=== PATIENT | male | born 1945 | race Two or more races ===

== ENCOUNTER 2024-12-16 09:39 | Inpatient (IN) | payer MEDICAID, SELFPAY ==
[2024-12-16] VITALS (21 sets, daily range): BP systolic 66–134; BP diastolic 46–77; PULSE 69–150; RESP 17–30; TEMP 36.1–39.5; O2SAT 70–100; BMI 19.2
--- NOTE | 2024-12-16 10:18 | EKG_ITS ---
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
--- NOTE | 2024-12-16 10:18 | XR_ITS ---
Examination: AP chest single view TECHNIQUE: AP portable upright chest single view Exam date and time: December 16, 2024 1101 hours INDICATIONS: Fever weakness today. FINDINGS: Mild prominence left ventricle Ectatic thoracic aorta No lobar pneumonia or pulmonary edema Moderate osteopenia IMPRESSION: No lobar pneumonia or pulmonary edema
--- NOTE | 2024-12-16 10:37 | EDNOTE_ITS ---
ED Weakness RME/HPI General Chief complaint: Weakness Stated complaint: WEAKNESS Time Seen by Provider: 12/16/24 10:18 Arrival date/time: 12/16/24 09:39 RME / HPI RME / HPI Narrative: DR. RABIA ARGUETA ED EVALUATION: 79 year old male, speaks only [place], presents to the Emergency Department with complaint of full body pain. Niece translated for the patient. When I asked if patient had chest pain, abdominal pain, or other localized pain; the niece asked and the patient just said the patient has full body pain, all joints . Otherwise the patient is healthy, active. However, today, family found the patient in bed, he had urinated and defecated on himself; the patient states he was too achy to get up to the restroom. He is febrile here at 102.6 F. Related Data Home Medications ?Medication ?Instructions ?Recorded ?Confirmed No Known Home Medications 12/16/24 040 01/06 Allergies Allergy/AdvReac Type Severity Reaction Status Date / Time No Known Allergies Allergy Verified 12/16/24 13:57 Review of Systems Review of Systems Systems Reviewed: All systems reviewed, normal except as documented Past Medical History Social History SMOKING STATUS: Never smoker SUBSTANCE USE: does not use ALCOHOL: Never ED Exam Narrative Physical exam: GENERAL APPEARANCE: AxOx4, generally well-appearing, no acute distress; febrile HEENT: NC, AT. MMM. EOMI, clear conjunctiva, oropharynx clear. NECK: Supple without lymphadenopathy. No stiffness or restricted ROM. HEART: Normal rate and regular rhythm, normal S1/S1, no m/r/g LUNGS: CTAB, moving air well. No crackles or wheezes are heard. ABDOMEN: Soft, nontender, nondistended with good bowel sounds heard. BACK: No midline C/T/L spine pain or deformity, No CVAT, no obvious deformity. EXTREMITIES: Without cyanosis, clubbing or edema. MUSCULOSKELETAL: FROM of all major joints, no chest tenderness NEUROLOGICAL: Grossly nonfocal. Alert and oriented, moving all 4 extremities. CN not formally tested but appear grossly intact. Observed to ambulate with normal gait. Skin: Warm and dry without any rash. Course Course Course Narrative: 1220: Sepsis alert initiated. Orders made at this time are congruent with ED Adult Sepsis Order List. Re-evaluation is to be completed. More fluids ordered. 1250: Sepsis reassessment performed consisting of lab review, vitals, physical exam including auscultation of heart, lungs, and visual evaluation of capillary refills, mucosal membranes and extremities. Quality Measures Current suspected stage: sepsis Possible source: unknown Blood cultures ordered: yes Antibiotic ordered: Yes Pertinent labs: 12/16/24 11:28 Lactic Acid 3.0 H mMol/L (0.4-2.0) Procalcitonin 5.07 H ng/ml (0.0-0.49) sepsis Orders Category Date Time Status Admit to Inpatient Status Routine Admission 12/16/24 13:06 Active Patient Condition Routine Admission 12/16/24 13:06 Ordered Bedside COVID-19 Antigen Test NOW Care 12/16/24 11:11 Active Bedside Influenza A&B Antigen Test NOW Care 12/16/24 11:11 Completed EKG (ED ONLY) *Do not use* NOW Care 12/16/24 10:18 Completed Notify provider NEEDED Care 12/16/24 13:06 Active Consult to Cardiology Routine Cons 12/16/24 13:17 Ordered Diet Regular Diet 12/16/24 Dinner Active CA echo doppler complete Stat Exams 12/16/24 13:11 Completed EKG (ED Only) Stat Exams 12/16/24 10:18 Draft US abdomen Stat Exams 12/16/24 13:14 Completed XR chest 1V Stat Exams 12/16/24 10:18 Completed Basic Metabolic Panel AM DRAW Lab 12/17/24 05:44 Completed Basic Metabolic Panel AM DRAW Lab 12/18/24 05:00 Ordered Basic Metabolic Panel AM DRAW Lab 12/19/24 05:00 Ordered Blood Culture (Lab) Stat Lab 12/16/24 10:21 Received CBC AM DRAW Lab 12/17/24 05:44 Completed CBC AM DRAW Lab 12/18/24 05:00 Ordered CBC AM DRAW Lab 12/19/24 05:00 Ordered CBC Stat Lab 12/16/24 10:21 Completed CMP [Comprehensive Metabolic Panel] Stat Lab 12/16/24 10:21 Completed Calprotectin, Stool* Stat Lab 12/16/24 16:36 Received Giardia Antigen, EIA, Stool* Stat Lab 12/16/24 16:36 Received Lactate (Lactic Acid) Stat Lab 12/16/24 11:28 Completed Lipid Panel AM DRAW Lab 12/17/24 05:44 Completed Magnesium AM DRAW Lab 12/17/24 05:44 Completed Magnesium AM DRAW Lab 12/18/24 05:00 Ordered Magnesium AM DRAW Lab 12/19/24 05:00 Ordered Norovirus, EIA (Stool)* Stat Lab 12/16/24 16:36 [address] Review Blood Smear Stat Lab 12/16/24 10:21 Completed Phosphorous AM DRAW Lab 12/17/24 05:44 Completed Procalcitonin Stat Lab 12/16/24 11:28 Completed Stool Culture Stat Lab 12/16/24 16:36 Received Stool for WBCs Stat Lab 12/16/24 16:36 Completed Thyroid Stimulating Hormone AM DRAW Lab 12/17/24 05:44 Completed Urinalysis Stat Lab 12/16/24 12:18 Completed Acetaminophen Tab [Tylenol Tab] Med 12/16/24 13:06 Active 650 mg PO Q6H PRN Enoxaparin [Lovenox] Med 12/17/24 09:00 Hold 40 mg SC QDAY Metoprolol Succinate Xl [Toprol Xl] Med 12/16/24 13:30 Discontinued 25 mg PO QDAY Oseltamivir [Tamiflu] Med 12/16/24 12:13 Discontinued 75 mg PO X1 ONE Prochlorperazine Maleate [Compazine] Med 12/16/24 13:06 Active 10 mg PO Q6H PRN Sodium Chloride 0.9% 1000 ml [Ns] 1,000 ml Med 12/16/24 12:20 Discontinued IV 999 mls/hr Sodium Chloride 0.9% 500 ml [Ns] 500 ml Med 12/16/24 10:17 Discontinued IV 999 mls/hr Sodium Chloride 0.9% 500 ml [Ns] 500 ml Med 12/16/24 12:20 Discontinued IV 999 mls/hr bisacodyL [Dulcolax Supp] Med 12/16/24 13:06 Active 10 mg NV QDAY PRN cefTRIAXone/D5w 1gm IV premix [Rocephin/D5w 1gm IV Med 12/16/24 12:14 Discontinued premix] 1 gm in 50 ml IV X1 metroNIDAZOLE/NS 500 MG IVPB [Flagyl 500 mg IV] Med 12/16/24 13:20 Discontinued 500 mg in 100 ml IV X1 Code Status Routine Oth 12/16/24 13:06 Ordered Vital Signs Vital signs: Vital Signs Temperature 100.6 F H 12/16/24 09:53 Pulse Rate 69 12/16/24 09:53 Respiratory Rate 18 12/16/24 09:53 Blood Pressure 120/70 12/16/24 09:53 Pulse Oximetry (%) 98 12/16/24 09:53 Procedures -ED EKG Interpretation #1: Date of EK12/16/24 Time of EK:45 Rate: 94 Interpretation: Interpreted by me Additional EKG comment: atrial fibrillation, rate 94, no acute ST-T wave changes Weakness MDM Narrative MDM Narrative:: Renetta Candelario am scribing for and in the presence of Dr. Walden. Patient data External records reviewed:: None (no previous visits) Clinical information provided by:: patient Social determinants that could affect healthcare access:: none Patient has the following chronic illnesses:: No known history. How is presenting disease/condition affected by chronic disease/condition?: no chronic disease Evaluation data The following diagnostics were reviewed and interpreted by me:: lab results, radiology exam(s) and EKG tracing(s) Lab and/or radiology exams considered but not ordered:: none Interpretation Summary: Procedure(s): XR chest 1V Accession Number(s): [id number] cc: Brendan Walden MD; Jesu Mitchell MD; NO PRIMARY/FAMILY,PHYSICIAN~ Examination: AP chest single view TECHNIQUE: AP portable upright chest single view Exam date and time: December 16, 2024 1101 hours INDICATIONS: Fever weakness today. FINDINGS: Mild prominence left ventricle Ectatic thoracic aorta No lobar pneumonia or pulmonary edema Moderate osteopenia IMPRESSION: No lobar pneumonia or pulmonary edema Dictated By: Jesu Mitchell MD Medications / Prescriptions Medications or Prescriptions considered but not ordered:: none Medication administrations:: Medication Administration History Acetaminophen (Acetaminophen 325 Mg Tablet) 650 mg PO Q6H PRN PRN Reason: Fever >100.3 Stop: 01/15/25 13:05 Last Admin: 12/16/24 14:18 Dose: 650 mg Documented By: RYAN Bisacodyl (Bisacodyl 10 Mg Supp) 10 mg NV QDAY PRN; Protocol PRN Reason: Constipation Stop: 01/15/25 13:05 Enoxaparin Sodium (Enoxaparin Sod Inj 40 Mg/0.4 Ml Syringe) 40 mg SC QDAY MIHAELA Stop: 12/31/24 08:59 Piperacillin/Tazobactam/Dextrose (Zosyn) 3.375 gm in 50 mls @ 12.5 mls/hr IV Q8HR [facility] Stop: 12/23/24 21:59 Last Admin: 12/17/24 05:17 Dose: 12.5 mls/hr Documented By: Infusion: 12/17/24 01:07 Dose: Infused Documented By: Admin: 12/16/24 21:07 Dose: 12.5 mls/hr Documented By: Influenza Virus Vaccine Quadrival (Influenza Virus Quadrivalent 0.5 Ml Syringe) 0.5 ml IMi .ONCE ONE Stop: 12/17/24 10:01 Prochlorperazine Maleate (Prochlorperazine Maleate 5 Mg Tablet) 10 mg PO Q6H PRN PRN Reason: NAUSEA OR VOMITING Stop: 01/15/25 13:05 Discontinued Medications Sodium Chloride (Ns) 500 mls @ 999 mls/hr IV .Q31M ONE Stop: 12/16/24 10:47 Last Infusion: 12/16/24 11:58 Dose: Infused Documented By: Admin: 12/16/24 11:30 Dose: 999 mls/hr Documented By: VG Ceftriaxone Sodium/Dextrose (Rocephin/D5w 1gm Iv Premix) 1 gm in 50 mls @ 100 mls/hr IV X1 ONE Stop: 12/16/24 12:43 Last Infusion: 12/16/24 15:18 Dose: Infused Documented By: Admin: 12/16/24 14:18 Dose: 100 mls/hr Documented By: VG Sodium Chloride (Ns) 500 mls @ 999 mls/hr IV .Q31M ONE Stop: 12/16/24 12:50 Last Infusion: 12/16/24 13:51 Dose: Infused Documented By: Admin: 12/16/24 12:45 Dose: 999 mls/hr Documented By: VG Sodium Chloride (Ns) 1,000 mls @ 999 mls/hr IV .Q1H1M ONE Stop: 12/16/24 13:20 Last Infusion: 12/16/24 13:51 Dose: Infused Documented By: Admin: 12/16/24 12:45 Dose: 999 mls/hr Documented By: VG Metronidazole (Flagyl 500 Mg Iv) 500 mg in 100 mls @ 100 mls/hr IV X1 ONE Stop: 12/16/24 14:19 Last Infusion: 12/16/24 16:49 Dose: Infused Documented By: Admin: 12/16/24 15:25 Dose: 100 mls/hr Documented By: VG Sodium Chloride (Ns) 500 mls @ 999 mls/hr IV .Q31M ONE Stop: 12/16/24 16:44 Last Infusion: 12/16/24 16:45 Dose: Infused Documented By: Admin: 12/16/24 16:15 Dose: 999 mls/hr Documented By: VG Lactated Ringer's (Lactated Ringers) 500 mls @ 999 mls/hr IV .Q31M ONE Stop: 12/16/24 17:25 Last Admin: 12/16/24 17:10 Dose: Not Given Documented By: VG Non-Admin Reason: Duplicate Medication on eMAR Piperacillin/Tazobactam/Dextrose (Zosyn) 3.375 gm in 50 mls @ 100 mls/hr IV X1 ONE Stop: 12/16/24 17:24 Last Infusion: 12/16/24 17:44 Dose: Infused Documented By: Admin: 12/16/24 17:03 Dose: 100 mls/hr Documented By: VG Sodium Chloride (Ns) 1,000 mls @ 999 mls/hr IV .Q1H1M ONE Stop: 12/16/24 18:06 Last Admin: 12/16/24 17:15 Dose: Not Given Documented By: VG Non-Admin Reason: Discontinued Lactated Ringer's (Lactated Ringers) 1,000 mls @ 999 mls/hr IV .Q1H1M ONE Stop: 12/16/24 18:09 Last Infusion: 12/16/24 17:32 Dose: Infused Documented By: Admin: 12/16/24 16:55 Dose: 999 mls/hr Documented By: VG Metoprolol Succinate (Metoprolol Succinate Xl 25 Mg Tabcr) 25 mg PO QDAY MIHAELA Stop: 01/15/25 13:29 Last Admin: 12/16/24 14:19 Dose: 25 mg Documented By: VG Oseltamivir Phosphate (Oseltamivir 75 Mg Capsule) 75 mg PO X1 ONE Stop: 12/16/24 12:14 Last Admin: 12/16/24 15:26 Dose: 75 mg Documented By: RYAN see above Consultations Consultation(s) initiated? (list below): Yes Consultation #1 (Physician, Specialty, Details): Discussed test HPI, PMHx, lab, radiology results and/or management with hospitalist. Will admit for further evaluation and management. Accepts patient for admission. Time: 12:19 Diagnosis Weakness Differential Diagnosis: rhabdomyolysis, sepsis, dehydration and other (arthritis) Most likely diagnosis given after review of the tests above:: Sepsis New onset atrial fibrillation CHRISTOPHER Admission Indicated Admission indicated?: indicated Admission Request Was there a request for admission?: Yes Admission Attestation Admission request attestation: Discussed case with [] from Hospitalist service regarding admission. Discussed patients ED course, exam findings, labs, and radiology results. The Hospitalist [agrees,declines] to accept the patient for admission. Disposition Plan Disposition Plan: Admit Critical Care Time Critical Care Time Critical Care Time: Yes Total Critical Care Time (min.): 35 Attestation: The high probability of sudden, clinically significant deterioration in the patient?s condition required the highest level of my preparedness to intervene urgently. The services I provided to this patient were to treat and/or prevent clinically significant deterioration. Services included the following: chart data review, reviewing nursing notes and/or old charts, documentation time, data communications software consultant collaboration regarding findings and treatment options, medication orders and management, direct patient care, vital sign assessments and ordering, interpreting and reviewing diagnostic studies and lab tests. Aggregate critical care time includes only time during which I was engaged in work directly related to the patient?s care, as described above, whether at bedside or elsewhere in the Emergency Department. It did not include time spent performing other reported procedures or the services of residents, students, nurses or physician assistants. Discharge Plan Plan Patient Disposition: Admit Acute Care w/in Hospital Problem List Clinical Impression: Sepsis, New onset atrial fibrillation, CHRISTOPHER (acute kidney injury)
[2024-12-16 10:38] LABS: Basophils % (Auto) 0 % (0-2.5); Eosinophils % (Auto) 0 % (0-10); Hematocrit 32.8 % (41.0-53.0); Hemoglobin 10.8 g/dL (13.5-16.0); Immature Granulocytes % (Auto) 1 % (0-0); Immature Granulocytes Auto 0.03 Thou/mm3 (0.00-0.00); Lymphocytes # (Auto) 0.8 Thou/mm3 (1.0-4.8); Lymphocytes % (Auto) 16 % (10-50); Mean Corpuscular HGB Conc 32.9 g/dl (31.0-37.0); Mean Corpuscular Hemoglobin 20.9 pg (25.0-35.0); Mean Corpuscular Volume 63 fL (80-100); Monocytes % (Auto) 21 % (0-12); Neutrophils % (Auto) 62 % (37-80); Nucleated Red Blood Cell % 0 /100 WBC (0); Platelet Count 125 Thou/mm3 (140-440); RDW Standard Deviation 31.6 fL (35.1-43.9); Red Blood Count 5.17 Miln/mm3 (4.50-5.90); White Blood Count 4.8 Thou/mm3 (3.8-10.6)
[2024-12-16 10:55] LABS: Alanine Aminotransferase 21 U/L (10-49); Albumin, Serum 4.1 gm/dL (3.4-4.8); Albumin/Globulin Ratio 1.4 (1.2-2.2); Alkaline Phosphatase 65 U/L (46-116); Anion Gap 9 (7-16); Aspartate Amino Transferase 73 U/L (0-34); BUN/Creatinine Ratio 16 Ratio (12-20); Bilirubin,Total 1.1 mg/dL (0.3-1.2); Blood Urea Nitrogen 25 mg/dL (9-23); Calcium 8.9 mg/dL (8.3-10.6); Calcium (Corrected) 8.9 mg/dL (8.5-10.1); Carbon Dioxide 20.7 mMol/L (20.0-31.0); Chloride 100 mMol/L (98-107); Creatinine (Component) 1.6 mg/dL (0.6-1.3); Glucose 99 mg/dL (74-106); Osmolality,Calculated 265 (275-295); Potassium 3.7 mMol/L (3.4-5.1); Sodium 130 mMol/L (136-145); Total Protein 7.1 gm/dL (5.7-8.2); eGFR 43 See Note
[2024-12-16] MEDS: SODIUM CHLORIDE 0.9% 500 ML 500 ML 999 ML IV ×3 (11:30→16:15)
[2024-12-16 12:00] LABS: Procalcitonin 5.07 ng/ml (0.0-0.49)
[2024-12-16 12:43] LABS: Collection Type, Urine Catheter
[2024-12-16] MEDS: SODIUM CHLORIDE 0.9% 1000 ML 1,000 ML 999 ML IV (12:45)
[2024-12-16 12:55] LABS: Bilirubin,Urine Negative (Negative); Blood,Urine 3+ (Negative); Glucose, Urine Negative (Negative); Ketones,Urine Negative (Negative); Leukocyte Esterase,Urine Negative (Negative); Nitrite,Urine Negative (Negative); PH,Urine 5.5 (5.0-7.0); Protein,Urine 1+ (Neg - Trace); RBC,Urine 1 /hpf (0-3); Specific Gravity,Urine 1.018 (1.001-1.035); Squamous Epithelial Cell,Urine 1 /hpf (0-5); Urobilinogen,Urine Negative mg/dL (0.0-1.0); WBC,Urine 1 /hpf (0-5)
[2024-12-16 12:56] LABS: Clarity,Urine Hazy (Clear/Hazy); Color,Urine Lt Yellow (Lt Yel-Yel)
--- NOTE | 2024-12-16 13:00 | PC.NURSE ---
admitting team at bedside.
--- NOTE | 2024-12-16 13:02 | PC.CC ---
Patient is a 79 year-old male who presents to the hospital for ASWEdyta made znqz-wc-wqum contact with patient. ASW introduced self, role, and reason for visit. Patient appeared alert but not oriented to self, location, and situation. At bedside was patient's nieces, Joy Zhang who is listed on patient's demographics. ASW completed initial assessment with patient's niece. Patient's niece reports patient resides with his sister, Harrison Herrera . Patient's next of kin is his sister Harrison. At home niece reports patient is ambulatory and completes his own ADLs. The patient does not use any DME. Patient receives primary care at [facility] and uses [facility] for prescription medication. Upon discharge the family plans to take the patient back home. manager environmental services to follow up with any discharge needs.
--- NOTE | 2024-12-16 13:04 | PC.CC ---
Patient is a 79 year-old male who presents to the hospital for Generalized Weakness. Edyta MONDRAGON made qwqg-fg-erel contact with patient. ASW introduced self, role, and reason for visit. Patient appeared alert but not oriented to self, location, and situation. At bedside was patient's nieces, Joy Zhang who is listed on patient's demographics. ASW completed initial assessment with patient's niece. Patient's niece reports patient resides with his sister, Harrison Herrera . Patient's next of kin is his sister Harrison. At home niece reports patient is ambulatory and completes his own ADLs. The patient does not use any DME. Patient receives primary care at [facility] and uses [email or web address] for prescription medication. Upon discharge the family plans to take the patient back home. client services manager to follow up with any discharge needs.
--- NOTE | 2024-12-16 13:11 | ECHO_ITS ---
Transthoracic Echo Report Ht (in): 66 Wt (lb): 155 Exam Location: Portable Status: Emergency Zig Zag Spring Machine Operator: PRASANNA Abraham^^^^ Indications: Procedure Performed: BP: 120 / 73 HR: 111 Rhythm: Atrial fibrillation Technical Quality: Fair MEASUREMENTS (Male / Female) Normal Values 2D ECHO LV Diastolic Diameter PLAX 4.5 cm 4.2 - 5.9 / 3.9 - 5.3 cm LV Systolic Diameter PLAX 3.4 cm IVS Diastolic Thickness 1.0 cm 0.6 - 1.0 / 0.6 - 0.9 cm LVPW Diastolic Thickness 0.9 cm 0.6 - 1.0 / 0.6 - 0.9 cm LV Relative Wall Thickness 0.4 LVOT Diameter 1.9 cm Aortic Root Diameter 4.1 cm LA Systolic Diameter LX 4.4 cm 3.0 - 4.0 / 2.7 - 3.8 cm LA Volume Index 52.3 cm?/m? 16 - 28 cm?/m? Ascending Aorta Diameter 3.4 cm DOPPLER AV Peak Velocity 140.0 cm/s AV Peak Gradient 7.8 mmHg AV Mean Gradient 4.0 mmHg AV Velocity Time Integral 21.3 cm AI Peak Velocity 207.0 cm/s AI Peak Gradient 17.1 mmHg AI Pressure Half Time 617.0 ms LVOT Peak Velocity 82.8 cm/s LVOT Peak Gradient 2.7 mmHg LVOT Velocity Time Integral 19.7 cm LVOT Cardiac Index 3406.9 cm?/min?m? AV Area Cont Eq vti 2.6 cm? AV Area Cont Eq pk 1.7 cm? MV Peak Velocity 114.0 cm/s MV Peak Gradient 5.2 mmHg MV Mean Velocity 73.5 cm/s MV Mean Gradient 3.0 mmHg MV Area PHT 5.0 cm? MR Peak Velocity 421.0 cm/s MR Peak Gradient 70.9 mmHg Mitral E Point Velocity 92.9 cm/s LV E' Lateral Velocity 18.9 cm/s Mitral E to LV E' Lateral Ratio 4.9 LV E' Septal Velocity 14.0 cm/s Mitral E to LV E' Septal Ratio 6.6 TR Peak Velocity 319.0 cm/s TR Peak Gradient 40.7 mmHg PV Peak Velocity 105.0 cm/s PV Peak Gradient 4.4 mmHg RVOT Peak Velocity 72.4 cm/s FINDINGS Left Ventricle Normal left ventricular size, wall thickness, systolic function with no obvious regional wall motion abnormalities. There is grade III diastolic dysfunction of the left ventricle (restrictive filling pattern). The left ventricular ejection fraction is normal, estimated at 55-60%. Right Ventricle The right ventricle is normal in size and systolic function. The estimated right ventricular systolic pressure, 41 mmHg. Left Atrium Moderately increased left atrial volume 52.3 mL/m?. Right Atrium The right atrium is normal by two-dimensional imaging, color flow and Doppler imaging with no structural abnormalities, no thrombus formation present. Atrial Septum The interatrial septum appears normal with no evidence of a shunt. Aorta The aorta is normal by two-dimensional, color flow and Doppler interrogation. Mitral Valve Havt-xo-znnhbott mitral regurgitation. Mild mitral annular calcification. Aortic Valve Aortic valve sclerosis. Trace to mild aortic valve regurgitation. Tricuspid Valve There is mild to moderate tricuspid valve regurgitation. Pulmonic Valve Trivial pulmonic valve regurgitation. Vessels The pulmonary artery appears normal. The inferior vena cava pulmonary and hepatic veins appear normal. Pericardium The pericardium is normal by two-dimensional imaging. There is no significant pericardial effusion. CONCLUSIONS Indication: Atrial fibrillation Normal LV size and function. Estimated EF of 55 to 60%. Diastolic dysfunction present but cannot be graded secondary to A-fib Normal RV size and function. RVSP of 42 mmHg. Moderate TR Moderate LA dilatation. Mild RA dilatation. Mild to moderate MR and mild MAC. Mild aortic valve sclerosis without stenosis. Mild-Mod TR. [place]aga (Electronically Signed) Final Date: 16 December 2024 21:46
--- NOTE | 2024-12-16 13:14 | XR_ITS ---
Examination: Abdomen sonogram, complete Date and time of exam: December 16, 2024 1329 hours INDICATIONS: Weakness abdominal pain today, atrial fibrillation. Technique: Multiple real-time grayscale transabdominal sonographic images of the abdomen have been obtained. Findings: Normal gallbladder Normal common bile duct Pancreas obscured by bowel gas Proximal aorta visualized not enlarged mediastinal and distally aorta obscured by bowel gas Liver 14 cm no focal liver lesions Normal hepatopedal portal venous flow Patent IVC Right kidney 10.1 cm cortex 1.2 cm 11 mm lower pole renal cyst Left ovary 8.8 cm cortex 1.1 cm Mild right mild left renal parenchymal scar formation Spleen 8.7 cm IMPRESSION: Normal gallbladder Normal common bile duct No focal liver lesions Mild bilateral renal parenchymal scar formation
--- NOTE | 2024-12-16 13:21 | ESHP_ITS ---
<Statement entered by Shane Mcdonald MD - 12/17/24 07:18> Senior Resident Attestation: I supervised/discussed management plan with internet site designer physician Dr. Diaz, and was involved in the care of this patient. I personally saw and examined the patient and discussed the assessment and plan with the entire medicine team, including my attending. I agree with the assessment and plan as documented. Patient's care was discussed with attending physician, Dr. Merino. Shane Mcdonald MD PGY-2. Documentation for date of: 12/16/24 HPI History of Present Illness Chief complaint: Generalized weakness History of present illness: A 79-year-old ilocano speaking patient with past medical history of CVA, but not on any medication was brought to the hospital by his niece with chief complaints of generalized weakness since 1 day. Patient at baseline is able to do his routine daily activities and ambulate well. On the day of admission, at 2 AM patient was found to have involuntary defecation and urination in his bed which is unusual for him and patient also complained of severe body pains all over. During night, patient reported that when he came back from the bathroom he twisted on his leg and had a fall but denied any injury or trauma to the head/spine. Denies palpitations, chest pain, shortness of breath, fever. Patient found to have further episodes of diarrhea for which he received Imodium at home. As patient is not at his baseline, he is brought to the hospital ED course: -Initial vitals at the time of admission are blood pressure 120/70 mmHg, pulse rate 69 bpm, respiratory rate 18/min, temperature 100.6 ?F, SpO2 98% with room air -Labs showed WBC 4.8, Hb 10.8, platelets 125, sodium 130, BUN 25, creatinine 1.6, osmolality 265, AST 73, ALT 21, procalcitonin 5.07, lactate 3. Urine analysis showed 1+ proteinuria, 3+ blood with no bacteria -Chest x-ray showed mild cardiomegaly with no patchy infiltrates -EKG showed atrial fibrillation with normal ventricular rate Past medical history: CVA, not on any medications Past surgical history: Not significant Social history: Quit alcohol 10 years back, currently denies smoking, alcohol, other illicit drug abuse. Lives in home with his daughter and son-in-law, ambulatory and able to do his own activities at baseline Allergies: NKDA Medication history: Magnesium supplementation Review of Systems Review of Systems Systems Reviewed: All systems reviewed, normal except as documented Past Medical History Social History SMOKING STATUS: Never smoker SUBSTANCE USE: does not use ALCOHOL: Former Exam Vital Signs Temp Pulse Resp BP Pulse Ox O2 Del Method 103.1 F H 103 H 20 131/72 H 98 Room Air 12/16/24 12:44 12/16/24 12:44 12/16/24 12:44 12/16/24 12:44 12/16/24 12:44 12/16/24 12:44 Narrative Exam General: Awake. Fragile, looks dehydrated HEENT: Normocephalic, atraumatic, mucous membranes moist. Heart: Irregular rate and rhythm, pansystolic murmur heard at tricuspid area Lungs: Clear to auscultation with no wheezing or crackles. Abdomen: Soft, nondistended, nontender, positive bowel sounds. ?No guarding or rebound tenderness. Neurologic: Alert and oriented x3, no gross neurological deficit, and patient able to move all 4 extremities. Extremities: No edema. Skin: No rash or ecchymoses. Results: Labs 12/17/24 05:44 12/17/24 05:44 Labs: Short CBC 12/16/24 Range/Units 10:21 WBC 4.8 (3.8-10.6) Thou/mm3 Hgb 10.8 L (13.5-16.0) g/dL Hct 32.8 L (41.0-53.0) % Plt Count 125 L (140-440) Thou/mm3 BMP 12/16/24 10:21 Sodium 130 L Potassium 3.7 Chloride 100 Carbon Dioxide 20.7 BUN 25 H Creatinine 1.6 H Glucose 99 Calcium 8.9 Liver Function 12/16/24 Range/Units 10:21 Total Bilirubin 1.1 (0.3-1.2) mg/dL AST 73 H (0-34) U/L ALT 21 (10-49) U/L Alkaline Phosphatase 65 (46-116) U/L Albumin 4.1 (3.4-4.8) gm/dL Urine 12/16/24 Range/Units 12:18 Urine Color Lt Yellow (Lt Yel-Yel) Urine Clarity Hazy (Clear/Hazy) Urine pH 5.5 (5.0-7.0) Ur Specific [place] 1.018 (1.001-1.035) Urine Protein 1+ A (Neg - Trace) Urine Glucose (UA) Negative (Negative) Quality Measures Quality Measures sepsis Current suspected stage: sepsis Possible source: unknown Blood cultures ordered: yes Antibiotic ordered: Yes Advance care planning discussed with:: patient Medications Home Medications and Allergies Home Medications ?Medication ?Instructions ?Recorded ?Confirmed ?Type No Known Home Medications 12/16/2401/06 History Allergies Allergy/AdvReac Type Severity Reaction Status Date / Time No Known Allergies Allergy Verified 12/16/24 13:57 Visit Medications Acetaminophen (Acetaminophen 325 Mg Tablet) 650 mg PO Q6H PRN PRN Reason: Fever >101.5 Stop: 01/15/25 13:05 Bisacodyl (Bisacodyl 10 Mg Supp) 10 mg [place] QDAY PRN; Protocol PRN Reason: Constipation Stop: 01/15/25 13:05 Enoxaparin Sodium (Enoxaparin Sod Inj 40 Mg/0.4 Ml Syringe) 40 mg SC QDAY [facility] Stop: 12/31/24 08:59 Ceftriaxone Sodium/Dextrose (Rocephin/D5w 1gm Iv Premix) 50 mls @ 100 mls/hr IV X1 ONE Stop: 12/16/24 12:43 Metronidazole (Flagyl 500 Mg Iv) 100 mls @ 100 mls/hr IV X1 ONE Stop: 12/16/24 14:19 Metoprolol Succinate (Metoprolol Succinate Xl 25 Mg Tabcr) 25 mg PO QDAY [facility] Stop: 01/15/25 13:29 Oseltamivir Phosphate (Oseltamivir 75 Mg Capsule) 75 mg PO X1 ONE Stop: 12/16/24 12:14 Prochlorperazine Maleate (Prochlorperazine Maleate 5 Mg Tablet) 10 mg PO Q6H PRN PRN Reason: NAUSEA OR VOMITING Stop: 01/15/25 13:05 Discontinued Medications Sodium Chloride (Ns) 500 mls @ 999 mls/hr IV .Q31M ONE Stop: 12/16/24 10:47 Last Infusion: 12/16/24 11:58 Dose: Infused Sodium Chloride (Ns) 500 mls @ 999 mls/hr IV .Q31M ONE Stop: 12/16/24 12:50 Last Admin: 12/16/24 12:45 Dose: 999 mls/hr Sodium Chloride (Ns) 1,000 mls @ 999 mls/hr IV .Q1H1M ONE Stop: 12/16/24 13:20 Last Admin: 12/16/24 12:45 Dose: 999 mls/hr Assessment & Plan Plan A 79-year-old ilocano speaking patient with past medical history of CVA, but not on any medication was brought to the hospital by his niece with chief complaints of generalized weakness since 1 day and admitted for suspicion of sepsis #Fever #Sepsis vs Viral illness vs Gastroenteritis - Brought to the hospital with the chief complaints of involuntary defecation and urination which is unusual for the patient - Also c/o severe body pains, but not able to localise the location - In the ED, patient vitals are stable except for temp of 100.6F, other vitals are stable - Labs are significant for hb 10.8, PLT 125, Sodium 130, Lactate 3, procal 5.07 - EKG showed afib with CVR. Chest x Ray did not show any filtrates - US Abdomen did not show any significant pathology Plan - Received 2L bolus in the ED. 2 boluses of 500ml are given later - Zosyn started ( 12/16 - - Blood cultures and stool studies sent #Afib - New onset vs paroxysmal vs persistent -Patient was found to have afib on routine EKG -Not sure if patient had previous afib as patient does not have previous history and not following any PCP Plan - Patient initially found to have RVR for which metoprolol 25mg is given - As patient blood pressure is borderline and heart rate is controlled, later metoprolol is held - Will re evaluate later and resume metoprolol based on his blood pressures and Heart rate - Patient had microcytic hypochromic anemia, occult blood is ordered - If occult blood comes back negative, will consider eliquis after discussing it with the patient #CHRISTOPHER vs CKD IIIa -Creatinine at the time of admission is 1.6 -Baseline creatinine is not available -Urinalysis showed 1+ proteinuria Plan -Patient received 2L of fluid in the ED -will monitor RFT -Avoid nephrotoxic medications and renally dose the medications #Lactic acidosis, resolved Likely due to diarrhea -Lactate at the time of admission is 3 and later improved to 1.8 after fluid bolus #Microcytic Hypochromic anemia - Hb at the time of admission is 10.8, MCV, MCH and MCHC is low -Stool for occult blood and iron panel is ordered - Will f/up with the results #Hyponatremia - Sodium at the time of admission is 130 - Received 2l bolus - will monitor electrolytes Hospital Maintenance: Dispo: tele DVT ppx: SCD GI ppx: protonix Diet: Regular IV lines:peripheral Code status:Full Patient plan of care was discussed with the attending physician, Dr. Merino and senior resident Dr. Harry Diaz, PGY1 Attending Provider Attestation/Addendum Face to face evaluation was performed by me. I have personally seen and examined the patient. I discussed the assessment and plan with the entire medicine team. I reviewed available medical records, imaging studies, laboratory results. I agree with the above subjective data, objective findings, assessment and plan except as corrected by me or noted below Fever, present on admission Possible severe sepsis, suspect gastrointestinal source. Present on admission. Without septic shock atrial fibrillation with rapid ventricular response Diarrhea, present admission -IV fluids, continue with empiric antibiotics. Follow culture results. Some IV fluids. Control heart rate with beta-xavier and/or calcium channel xavier if blood pressure/vitals. Cardiology consultation. Echocardiogram, keep magnesium above 2 potassium above 4, check TSH. - Monitor clinical course closely. More than > 30 minutes spent on the encounter
[2024-12-16] MEDS: cefTRIAXone/D5w 1gm IV premix 1 GM/50 ML BAG IV (14:18)
[2024-12-16] MEDS: ACETAMINOPHEN 325 MG TABLET 650 MG PO (14:18)
[2024-12-16] MEDS: METOPROLOL SUCCINATE XL 25 MG TABCR PO (14:19)
[2024-12-16 14:32] LABS: Reflex Lactate? Y
--- NOTE | 2024-12-16 15:08 | ESCONSULT_ITS ---
HPI Data of Consult Requesting Physician: Bimal Merino MD Admitting Provider: Bimal Merino MD Attending Provider: Bimal Merino MD Primary Care Provider: Physician No Primary/Family Consult Narrative History of present illness: Patient is a 79-year-old Ilocano-speaking male with no known past medical history who presented to the ED on 12/16/2024 with generalized weakness. Niece is present at the bedside who helps to provide translation. Patient at present reports full body aches, no focal pain or weakness. The patient was apparently found weak in bed at home where he lives with his sister and sister's (niece's parents). Patient was found to have urine and diarrhea in the bed and per niece this is unusual for him. Typically he is very independent with all ADLs and all IADLs. He walks normally without use of any assistance and is active in the house. Patient was noted to have diarrhea starting yesterday and took 1 immodium. No other unusual symptoms were noted by the patient or family prior to this. Otherwise denies any chest pain, palpitations, cough, shortness of breath, phelgm, congestion, abdominal pain, flank pain, hematuria, or hematochezia. He moved from the [facility] about 10 years ago. Patient denies any recent travel, denies sick contacts. ED Course: -Initial vitals were BP 120/70, HR 69, RR 18, Temp 100.6, O2 98% on room air -Labs significant for microcytic anemia with Hgb 10.8, MCV 63, thrombocytopenia 125k, hyponatremia 130, BUN 25, creatinine 1.6, GFR 43, lactic acid 3.0, AST 73, procalcitonin 5.07 -UA showed 1+ protein, 3+ blood, but negative for nitrites or leukocyte esterase -CXR showed dilation of the aorta and mildly enlarged left ventricle but otherwise no consolidations -EKG showed afib at a rate of 94, poor quality EKG due to artifact -In the ED, patient was given 2L NS IV fluids -Patient was admitted for sepsis and on-call Cardiology was consulted for new onset afib with RvR Review of Systems Review of systems otherwise negative except what is mentioned above. cc:: cc: Bimal Merino MD Past Medical History Past Medical History Comments PMH COMMENT: Past Medical History: Possible prior history of stroke , though unconfirmed. Niece states there was a few months period in the [facility] when patient was bedridden and aphasic requiring nursing care, but that he recovered completely from this. Family History: Mother with stroke, age 80s, father with heart attack Surgical History: No prior surgeries Social History: Denies history of smoking, denies current alcohol use but used to drink heavily more than 10 years ago in the [facility], bottles of vodka per day according to niece, since moving to the he has not had any alcohol, denies recreational drug use. Patient is originally from the [facility], moved in 2014 to the , speaks [employer]. Lives with sister and sister's . Independent with all ADLs. 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 Never . No children. No pets or animals in the home. Current Medications: Magnesium supplement 240 mg qday Allergies: No known drug allergies Exam Vital Signs Temp Pulse Resp BP Pulse Ox O2 Del Method 103.1 F H 118 H 20 120/73 98 Room Air 12/16/24 14:18 12/16/24 14:19 12/16/24 12:44 12/16/24 14:19 12/16/24 12:44 12/16/24 12:44 Narrative Exam Physical Exam General: Awake and in no acute distress. Elderly thin male who speaks I[place], interactive with the family. HEENT: Normocephalic, atraumatic, mucous membranes dry. Heart: Irregularly irregular rate and rhythm, 2/6 holosystolic murmur at the left parasternal space Lungs: Clear to auscultation with no wheezing or crackles. Abdomen: Soft, nondistended, nontender, positive bowel sounds. ?No guarding or rebound tenderness. Neurologic: Alert and oriented x3, no gross neurological deficit, and patient able to move all 4 extremities. Extremities: No edema. Skin: No rash or ecchymoses. Results Labs 12/16/24 10:21 12/16/24 10:21 Labs: Short CBC 12/16/24 Range/Units 10:21 WBC 4.8 (3.8-10.6) Thou/mm3 Hgb 10.8 L (13.5-16.0) g/dL Hct 32.8 L (41.0-53.0) % Plt Count 125 L (140-440) Thou/mm3 BMP 12/16/24 10:21 Sodium 130 L Potassium 3.7 Chloride 100 Carbon Dioxide 20.7 BUN 25 H Creatinine 1.6 H Glucose 99 Calcium 8.9 Liver Function 12/16/24 Range/Units 10:21 Total Bilirubin 1.1 (0.3-1.2) mg/dL AST 73 H (0-34) U/L ALT 21 (10-49) U/L Alkaline Phosphatase 65 (46-116) U/L Albumin 4.1 (3.4-4.8) gm/dL Urine 12/16/24 Range/Units 12:18 Urine Color Lt Yellow (Lt Yel-Yel) Urine Clarity Hazy (Clear/Hazy) Urine pH 5.5 (5.0-7.0) Ur Specific [place] 1.018 (1.001-1.035) Urine Protein 1+ A (Neg - Trace) Urine Glucose (UA) Negative (Negative) Quality Measures Quality Measures sepsis Current suspected stage: severe sepsis Possible source: unknown Blood cultures ordered: yes Antibiotic ordered: Yes Advance care planning discussed with:: patient and other (niece) Medications Home Medications and Allergies Home Medications ?Medication ?Instructions ?Recorded ?Confirmed ?Type No Known Home Medications 12/16/2401/06 History Allergies Allergy/AdvReac Type Severity Reaction Status Date / Time No Known Allergies Allergy Verified 12/16/24 13:57 Visit Medications Acetaminophen (Acetaminophen 325 Mg Tablet) 650 mg PO Q6H PRN PRN Reason: Fever >100.3 Stop: 01/15/25 13:05 Last Admin: 12/16/24 14:18 Dose: 650 mg Bisacodyl (Bisacodyl 10 Mg Supp) 10 mg [place] QDAY PRN; Protocol PRN Reason: Constipation Stop: 01/15/25 13:05 Enoxaparin Sodium (Enoxaparin Sod Inj 40 Mg/0.4 Ml Syringe) 40 mg SC QDAY [facility] Stop: 12/31/24 08:59 Metoprolol Succinate (Metoprolol Succinate Xl 25 Mg Tabcr) 25 mg PO QDAY [facility] Stop: 01/15/25 13:29 Last Admin: 12/16/24 14:19 Dose: 25 mg Prochlorperazine Maleate (Prochlorperazine Maleate 5 Mg Tablet) 10 mg PO Q6H PRN PRN Reason: NAUSEA OR VOMITING Stop: 01/15/25 13:05 Discontinued Medications Sodium Chloride (Ns) 500 mls @ 999 mls/hr IV .Q31M ONE Stop: 12/16/24 10:47 Last Infusion: 12/16/24 11:58 Dose: Infused Ceftriaxone Sodium/Dextrose (Rocephin/D5w 1gm Iv Premix) 1 gm in 50 mls @ 100 mls/hr IV X1 ONE Stop: 12/16/24 12:43 Last Admin: 12/16/24 14:18 Dose: 100 mls/hr Sodium Chloride (Ns) 500 mls @ 999 mls/hr IV .Q31M ONE Stop: 12/16/24 12:50 Last Infusion: 12/16/24 13:51 Dose: Infused Sodium Chloride (Ns) 1,000 mls @ 999 mls/hr IV .Q1H1M ONE Stop: 12/16/24 13:20 Last Infusion: 12/16/24 13:51 Dose: Infused Metronidazole (Flagyl 500 Mg Iv) 500 mg in 100 mls @ 100 mls/hr IV X1 ONE Stop: 12/16/24 14:19 Oseltamivir Phosphate (Oseltamivir 75 Mg Capsule) 75 mg PO X1 ONE Stop: 12/16/24 12:14 Assessment & Plan Plan 79-year-old Ilocano-speaking male with no known past medical history who presented to the ED on 12/16/2024 with generalized weakness and body aches for 1 day. #New onset afib with RvR EKG showed afib at a rate of 94, poor quality EKG due to artifact. Patient did have afib on the telemonitor however, with rate going up into the 130s at times. Likely secondary to the underlying sepsis. Patient himself is denying any cardiac symptoms including chest pain, palpitations, shortness of breath, or dizziness. No known cardiac disease, however there is a questionable history of previous stroke in the patient, no official diagnosis and the patient is not on any medication. Rate is controlled for the most part so will not start any IV drips for now. -Repeat EKG for appropriate quality -OK with starting metoprolol succinate 25 mg qday if BP is adequate -Treat underlying sepsis -Obtain complete transthoracic echo -Obtain lipid panel, A1c, TSH for risk stratification Rest of conditions to continue current management per primary team: #Severe sepsis, unknown source #Lactic acidosis #Microcytic anemia #CHRISTOPHER prerenal secondary to sepsis or dehydration versus CKD #Thrombocytopenia #Hyponatremia Patient was discussed with the Cardiology attending, Dr. Arreaga. Thank you for allowing us to participate in the care of this patient. Chelsea Schulz, PGY-2 Attending Provider Attestation/Addendum I have personally seen and examined the patient separately on the above date of service and discussed the plan of care with the resident. I reviewed the resident Dr. Chelsea Schulz consultation progress note and agree with the resident findings and plan in the note above and have also edited the documentation to reflect my findings and plan. 79-year-old male with no significant past medical history except for possible CVA with no residual deficits was brought in to the emergency department for further evaluation of generalized weakness and fever. Patient apparently has been doing well until yesterday and overnight patient apparently went to the bathroom and fell down after twisting his ankle. Denies any kind of loss of consciousness or syncope. Also patient was apparently found on the bed with involuntary defecation and urination and patient did not have this kind of episodes before. Since morning patient is having severe low body pains and also had some diarrhea and questionable subjective fever and hence was brought to the emergency department for further evaluation. Patient denies any Chest pain chest pressure shortness of breath or orthopnea or PND or palpitations or leg swelling or nausea vomiting or fever or chills. He does complain of some right flank pain as per the niece who is at the bedside. At baseline patient is ADL and IADL independent and does not need a walker and is ADL independent but IADL dependent. 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 Denies any smoking or drug abuse. He used to drink alcohol previously but quit more than 10 years ago and lives with his daughter and son-in-law and his niece helps him from time to time. Denies any kind of recent hospitalization for the last 10 years and no other allergies. EKG showed atrial fibrillation but rate controlled around 90 bpm and cardiology was consulted for further evaluation. Labs showed hemoglobin of 10.8 platelets 125 sodium 130 creatinine of 1.6, BUN 25, AST mildly elevated at 73 but rest of the LFTs were normal. Procalcitonin elevated to 5.07 and lactate was 3.0 on admission with WC of 4.8. Urinalysis showed no bacteriuria but 1+ protein and 3+ blood. Chest x-ray showed mild cardiomegaly without any evidence of vascular congestion with possible trace pleural effusions. Assessment and plan: 1. Sepsis with unclear source 2. Paroxysmal atrial fibrillation versus persistent versus permanent 3. Acute kidney injury versus acute on chronic kidney disease stage III 4. Fall 5. Chronic anemia Patient presented with unclear source of sepsis but does have elevated temperature of 102 F on admission along with low WBC count around 4 and lactate is elevated along with procalcitonin. Chest x-ray and UA did not show any acute pathology. Primary team is to continue further workup for the sepsis. Continue IV fluids for now as patient blood pressure is low normal. EKG showed atrial fibrillation but rate was controlled around 89 bpm but later on heart rate did increase up to 120 to 140 bpm patient normal niece is aware of any previous history of any atrial fibrillation. Unclear if new onset paroxysmal atrial fibrillation versus persistent versus permanent. Rate is uncontrolled mostly secondary to the sepsis and would recommend to treat the sepsis aggressively keep potassium greater than 4 and magnesium greater than 2.0 at all times. If blood pressure permits we will then start the patient on metoprolol XL 25 mg once daily organ started metoprolol tartrate 12.5 mg twice daily initially and uptitrate as needed. If patient blood pressure is low would recommend to hold off on. Recommend heparin drip for anticoagulation as the patient's [id number] score is high. Continue to monitor on telemetry. Echocardiogram ordered to evaluate further including LV function and RV function diastolic function as well as LA size. Creatinine was 1.6 and unclear if patient has acute kidney injury versus acute on chronic kidney disease stage III Fall appears to be mechanical as he says he stepped out and did not lose any consciousness and was aware of his surroundings Recommend complete anemia workup per the primary team. Management of rest of the medical conditions as per primary team and other consultants. Thank you for the consult and allowing me to participate in the care of the patient. Cardiology will continue to follow. Bon Arreaga M.D. Interventional Cardiology
[2024-12-16 15:14] LABS: Lactic Acid, 3 HR 1.8 mMol/L (0.4-2.0)
[2024-12-16] MEDS: metroNIDAZOLE/NS 500 MG IVPB 500 MG/100 ML BAG 100 MG IV (15:25)
[2024-12-16] MEDS: OSELTAMIVIR 75 MG CAPSULE PO (15:26)
[2024-12-16 15:33] LABS: Path Review Blood Smear Sent to Pathologist
--- NOTE | 2024-12-16 16:15 | PC.NURSE ---
pt BP soft at 78/48, admitting provider called and notified. per provider, give 500ml NS bolus and call back with update.
--- NOTE | 2024-12-16 16:30 | PC.NURSE ---
pt assisted onto bed colindres. had episode of diarrhea. sample collected and sent to lab. breif placed on pt, linens changed and pt adjusted in bed.
[2024-12-16] MEDS: RINGERS LACTATED 1000 ML 1,000 ML 999 ML IV (16:55)
[2024-12-16] MEDS: PIPER/TAZO 3.375 GM PREMIX 3.375 GM/50 ML BAG IV ×2 (17:03→21:07)
--- NOTE | 2024-12-16 17:16 | XR_ITS ---
Examination: CT brain head without contrast. 2-D sagittal coronal reconstructions Date and time of exam:December 16, 2024 1004 hours INDICATIONS: Patient fell today with injury to the head, head pain CTDI: vol (mGy):40 DLP: (mGycm):961 Technique: Multiple CT axial sections of the brain have been obtained, 5 mm slice thickness. Contrast has not been administered. 2-D sagittal, coronal reconstructions have been obtained Low dose protocols were performed. One or more of the following dose reduction techniques were used; automated exposure control, adjustment of the mA and/or KV according to patient size, use of iterative reconstruction technique. Findings: No significant ventricular enlargement. Intra-axial or extra-axial hemorrhage density is not seen. No mass effect or midline shift Basal cisterns are not remarkable. Fourth ventricle is midline. Cranial vault intact. Impression: Negative for acute hemorrhage, mass effect or midline shift
[2024-12-16 21:26] LABS: Stool for WBCs Many (Negative)
[2024-12-16 21:29] LABS: B-Type Natriuretic Peptide 1447 pg/mL (0-100)
[2024-12-16 21:41] LABS: Creatine Kinase 10978 U/L (34-171)
[2024-12-17] VITALS: BP 97/62; PULSE 76; PULSE 83; RESP 20; TEMP 37.2; O2SAT 97
[2024-12-17 04:00] VITALS: BP 93/53; PULSE 78; PULSE 79; RESP 17; TEMP 36.3; O2SAT 96
[2024-12-17] MEDS: PIPER/TAZO 3.375 GM PREMIX 3.375 GM/50 ML BAG IV ×3 (05:17→21:11)
[2024-12-17 05:49] VITALS: BMI 19.2
[2024-12-17 06:27] LABS: Basophils # (Auto) 0.1 Thou/mm3 (0.0-0.2); Basophils % (Auto) 1 % (0-2.5); Eosinophils % (Auto) 0 % (0-10); Hematocrit 31.8 % (41.0-53.0); Hemoglobin 10.4 g/dL (13.5-16.0); Immature Granulocytes % (Auto) 1 % (0-0); Immature Granulocytes Auto 0.09 Thou/mm3 (0.00-0.00); Lymphocytes # (Auto) 0.8 Thou/mm3 (1.0-4.8); Lymphocytes % (Auto) 11 % (10-50); Mean Corpuscular HGB Conc 32.7 g/dl (31.0-37.0); Mean Corpuscular Hemoglobin 21.1 pg (25.0-35.0); Mean Corpuscular Volume 64 fL (80-100); Monocytes % (Auto) 14 % (0-12); Neutrophils # (Auto) 5.5 Thou/mm3 (1.8-7.7); Neutrophils % (Auto) 73 % (37-80); Nucleated Red Blood Cell % 0 /100 WBC (0); Platelet Count 102 Thou/mm3 (140-440); Red Blood Count 4.94 Miln/mm3 (4.50-5.90); White Blood Count 7.5 Thou/mm3 (3.8-10.6)
[2024-12-17 06:42] LABS: Iron 9 mcg/dL (65-175); Percent Iron Saturation 4 % (20-55); Total Iron Binding Capacity 210 mcg/dL (250-425); Unsaturated Iron Binding 201 (225-295)
[2024-12-17 06:49] LABS: Anion Gap 13 (7-16); BUN/Creatinine Ratio 17 Ratio (12-20); Blood Urea Nitrogen 24 mg/dL (9-23); Calcium 7.7 mg/dL (8.3-10.6); Carbon Dioxide 16.3 mMol/L (20.0-31.0); Cardiac Risk Estimate 2.4 RATIO (4.0-6.7); Chloride 104 mMol/L (98-107); Cholesterol 87 mg/dL (132-200); Creatinine (Component) 1.4 mg/dL (0.6-1.3); Estimated Creatinine Clearance 31.6 mL/min (>60); Glucose 75 mg/dL (74-106); Glucose Estimated Average 123 mg/dL (80-131); HDL Cholesterol 36 mg/dL (40-60); Hemoglobin A1C 5.9 % Hgb (4.8-6.0); LDL Cholesterol,Calculated 38 mg/dL (0-130); Magnesium 1.8 mg/dL (1.6-2.6); Osmolality,Calculated 269 (275-295); Phosphorous 3.6 mg/dL (2.4-5.1); Potassium 3.8 mMol/L (3.4-5.1); Sodium 133 mMol/L (136-145); Triglycerides 66 mg/dL (30-150); eGFR 50 See Note
[2024-12-17 08:00] VITALS: BP 94/59; PULSE 86; PULSE 97; RESP 18; TEMP 36.7; O2SAT 99
[2024-12-17] MEDS: SODIUM CHLORIDE 0.9% 1000 ML 1,000 ML 70 ML IV (10:21)
--- NOTE | 2024-12-17 11:45 | PD.RESPRO ---
Documentation for date of: 12/17/24 Subjective Subjective Interval history: Patient was seen and examined at bedside. No acute overnight events. Patient reports he is feeling better today. His urine output was minimal so bladder scan was ordered. His blood pressure is 94/59 in the morning, heart rate 79. Yesterday night creatinine kinase was ordered and was 11,000, decreased today to 9000. Additional IV fluids were given. C. difficile was ordered. Stool studies showed increased WBCs, and the rest of the studies and pending. Cultures are pending, source of sepsis remains unclear with only 1 possible source is GI, we will continue current antibiotic regimen until blood cultures return. Heparin drip was started due to A-fib. Holding on rate control medications due to hypotension. Exam Vital Signs Temp Pulse Resp BP Pulse Ox O2 Del Method 98.1 F 86 18 94/59 L 99 Room Air 12/17/24 08:00 12/17/24 08:00 12/17/24 08:00 12/17/24 08:00 12/17/24 08:00 12/17/24 08:00 Narrative Exam Gen: Well-developed and well-nourished elderly male. HEENT: NCAT, PERRLA, EOMI, MMM, anicteric conjunctivae, poor dentition. CVS: normal S1 and S2. Systolic murmur heard at tricuspid area. Resp: CTA B/L. No rhonchi, rales, crackles or wheezing. Abd: soft, non-tender, non-distended. BS+ in all 4 quadrants. MSK: Good ROM in BUE & BLE. No edema or rash. Neuro: CN II-XII grossly intact. Strength 5/5 in BUE & BLE. Alert and oriented x3. Objective Labs 12/17/24 05:44 12/17/24 05:44 Labs: Laboratory Results - last 24 hr 12/16/24 12/16/24 12/16/24 10:21 11:28 12:18 WBC RBC Hgb Hct MCV MCH MCHC RDW Std Deviation Plt Count Neut % (Auto) Lymph % (Auto) [place] % (Auto) Eos % (Auto) Baso % (Auto) Neut # (Auto) Lymph # (Auto) [place] # (Auto) Eos # (Auto) Baso # (Auto) Immature Gran # (Auto) Absolute Nucleated RBC Immature Gran % Nucleated RBC % Smear Path Review Sent to Pathologist Sodium Potassium Chloride Carbon Dioxide Anion Gap BUN Creatinine Estim Creat Clear Calc eGFR BUN/Creatinine Ratio Glucose Estimated Ave Glu mg/dL Hemoglobin A1c Calculated Osmolality Lactic Acid Calcium Phosphorus Magnesium Iron TIBC Iron Saturation Unsat Iron Binding Total Creatine Kinase B-Natriuretic Peptide Triglycerides Cholesterol LDL Cholesterol, Calc HDL Cholesterol Cholesterol/HDL Ratio Procalcitonin 5.07 H TSH Ur Collection Type Catheter Urine Color Lt Yellow Urine Clarity Hazy Urine pH 5.5 Ur Specific [place] 1.018 Urine Protein 1+ A Urine Glucose (UA) Negative Urine Ketones Negative Urine Blood 3+ A Urine Nitrite Negative Urine Bilirubin Negative Urine Urobilinogen (Auto) Negative Ur Leukocyte Esterase Negative Urine RBC 1 Urine WBC 1 Ur Squamous Epith Cells 1 Urine Bacteria None Stool for White Cells 12/16/24 12/16/24 12/16/24 14:50 16:36 20:47 WBC RBC Hgb Hct MCV MCH MCHC RDW Std Deviation Plt Count Neut % (Auto) Lymph % (Auto) [place] % (Auto) Eos % (Auto) Baso % (Auto) Neut # (Auto) Lymph # (Auto) [place] # (Auto) Eos # (Auto) Baso # (Auto) Immature Gran # (Auto) Absolute Nucleated RBC Immature Gran % Nucleated RBC % Smear Path Review Sodium Potassium Chloride Carbon Dioxide Anion Gap BUN Creatinine Estim Creat Clear Calc eGFR BUN/Creatinine Ratio Glucose Estimated Ave Glu mg/dL Hemoglobin A1c Calculated Osmolality Lactic Acid 1.8 Calcium Phosphorus Magnesium Iron TIBC Iron Saturation Unsat Iron Binding Total Creatine Kinase 39264 H B-Natriuretic Peptide 1447 H* Triglycerides Cholesterol LDL Cholesterol, Calc HDL Cholesterol Cholesterol/HDL Ratio Procalcitonin TSH Ur Collection Type Urine Color Urine Clarity Urine pH Ur Specific [place] Urine Protein Urine Glucose (UA) Urine Ketones Urine Blood Urine Nitrite Urine Bilirubin Urine Urobilinogen (Auto) Ur Leukocyte Esterase Urine RBC Urine WBC Ur Squamous Epith Cells Urine Bacteria Stool for White Cells Many A 12/17/24 05:44 WBC 7.5 D RBC 4.94 Hgb 10.4 L Hct 31.8 L MCV 64 L MCH 21.1 L MCHC 32.7 RDW Std Deviation 33.0 L Plt Count 102 L Neut % (Auto) 73 Lymph % (Auto) 11 [place] % (Auto) 14 H Eos % (Auto) 0 Baso % (Auto) 1 Neut # (Auto) 5.5 Lymph # (Auto) 0.8 L [place] # (Auto) 1.0 H Eos # (Auto) 0.0 Baso # (Auto) 0.1 Immature Gran # (Auto) 0.09 H Absolute Nucleated RBC 0.00 Immature Gran % 1 H Nucleated RBC % 0 Smear Path Review Sodium 133 L Potassium 3.8 Chloride 104 Carbon Dioxide 16.3 L Anion Gap 13 BUN 24 H Creatinine 1.4 H Estim Creat Clear Calc 31.6 L eGFR 50 L BUN/Creatinine Ratio [address] Glu mg/dL 123 Hemoglobin A1c 5.9 Calculated Osmolality 269 L Lactic Acid Calcium 7.7 L Phosphorus 3.6 Magnesium 1.8 Iron 9 L TIBC 210 L Iron Saturation 4 L Unsat Iron Binding 201 L Total Creatine Kinase B-Natriuretic Peptide Triglycerides 66 Cholesterol 87 L LDL Cholesterol, Calc 38 HDL Cholesterol 36 L Cholesterol/HDL Ratio 2.4 L Procalcitonin TSH 1.50 Ur Collection Type Urine Color Urine Clarity Urine pH Ur Specific [place] Urine Protein Urine Glucose (UA) Urine Ketones Urine Blood Urine Nitrite Urine Bilirubin Urine Urobilinogen (Auto) Ur Leukocyte Esterase Urine RBC Urine WBC Ur Squamous Epith Cells Urine Bacteria Stool for White Cells Quality Measures Quality Measures sepsis Current suspected stage: sepsis Possible source: unknown Blood cultures ordered: yes Antibiotic ordered: Yes Advance care planning discussed with:: patient and sibling Assessment & Plan Assessment Current Active Medications: Generic Name Dose Route Start Last Admin Trade Name Freq PRN Reason Stop Dose Admin Acetaminophen 650 mg 12/16/24 13:06 12/16/24 14:18 Acetaminophen 325 Mg Tablet PO 01/15/25 13:05 650 mg Q6H PRN Administration Fever >100.3 Bisacodyl 10 mg 12/16/24 13:06 Bisacodyl 10 Mg Supp RI 01/15/25 13:05 QDAY PRN Constipation Protocol Heparin Sodium (Porcine) 3,250 unit 12/17/24 09:49 Heparin Sod Inj 5000 Unit/Ml Vial 60 unit/kg (3250 unit) 12/17/24 09:50 IV X1 ONE Protocol Piperacillin/Tazobactam/Dextrose 3.375 gm in 50 mls @ 12.5 mls/hr 12/16/24 22:00 12/17/24 05:17 Zosyn IV 12/23/24 21:59 12.5 mls/hr Q8HR MIHAELA Administration Sodium Chloride 1,000 mls @ 70 mls/hr 12/17/24 09:46 12/17/24 10:21 Ns IV 12/18/24 00:03 70 mls/hr .[id number] ONE Administration Heparin Sodium/Dextrose 25,000 unit in 250 mls @ 6.477 mls/hr 12/17/24 11:45 Heparin In D5w Ivpb IV 12/31/24 11:44 .Q24H MIHAELA Protocol 12 UNITS/KG/HR Prochlorperazine Maleate 10 mg 12/16/24 13:06 Prochlorperazine Maleate 5 Mg Tablet PO 01/15/25 13:05 Q6H PRN NAUSEA OR VOMITING Plan A 79-year-old iloc[place] speaking patient with past medical history of CVA, but not on any medication was brought to the hospital by his niece with chief complaints of generalized weakness since 1 day and admitted for suspicion of sepsis. #Fever. #2/2 Sepsis vs Viral illness vs Gastroenteritis vs rhabdomyolysis. - Brought to the hospital with the chief complaints of involuntary defecation and urination which is unusual for the patient. - Also c/o severe body pains, but not able to localise the location. - In the ED, patient vitals are stable except for temp of 100.6F, other vitals are stable. - Labs are significant for hb 10.8, PLT 125, Sodium 130, Lactate 3, procal 5.07. - EKG showed afib with CVR. Chest x Ray did not show any filtrates. - US Abdomen did not show any significant pathology. - Received 2L bolus in the ED. 2 boluses of 500ml are given later. Plan - Zosyn started ( 12/16 - - Blood cultures and stool studies pending. #Afib - New onset vs paroxysmal vs persistent. -Patient was found to have afib on routine EKG. -Not sure if patient had previous afib as patient does not have previous history and not following any PCP. - Patient initially found to have RVR for which metoprolol 25mg is given Plan - As patient blood pressure is borderline and heart rate is controlled, metoprolol is held. - Will re evaluate later and resume metoprolol based on his blood pressures and Heart rate. - heparin drip started. #CHRISTOPHER vs CHRISTOPHER on CKD IIIa. #Rhabdomyolysis. -Creatinine at the time of admission is 1.6. -Baseline creatinine is not available. -Urinalysis showed 1+ proteinuria. -Patient received 2L of fluid in the ED. -[place] [address], today down to 9106. Plan: -will monitor RFT. -Avoid nephrotoxic medications and renally dose the medications. -additional IVF boluses given, started on NS 80cc/hr. #Lactic acidosis, resolved. -Likely due to diarrhea -Lactate at the time of admission is 3 and later improved to 1.8 after fluid bolus. #Microcytic Hypochromic anemia. - Hb at the time of admission is 10.8, MCV, MCH and MCHC is low. Plan: -transfuse if Hgb below 7. -monitor with daily CBC. #Hyponatremia, improving. - Sodium at the time of admission is 130 - Received 2l bolus Plan: - will monitor electrolytes Hospital Maintenance: Dispo: tele. DVT ppx: SCD. GI ppx: protonix. Diet: Regular. IV lines:peripheral. Code status:Full. Plan of care discussed with attending Dr. Merino. Shane Mcdonald MD, PGY 2. Disclaimer: This note was dictated by speech recognition. Minor errors in community health advisor may be present due to voice recognition software. Attending Provider Attestation/Addendum Face to face evaluation was performed by me. I have personally seen and examined the patient. I discussed the assessment and plan with the entire medicine team. I reviewed available medical records, imaging studies, laboratory results. I agree with the above subjective data, objective findings, assessment and plan except as corrected by me or noted below Fever, present on admission Possible severe sepsis, suspect gastrointestinal source. Present on admission. Without septic shock atrial fibrillation with rapid ventricular response Diarrhea, present admission - Fever seems to be better, continue broad-spectrum antibiotics with Zosyn. Check C. difficile, follow-up blood cultures, stool studies. Cardiology was consulted since I recommended systemic anticoagulation with IV heparin drip?will order it for now. His [id number] score is high enough to have anticoagulation. Discussed with family including sister and niece at bedside.
[2024-12-17 11:48] LABS: INR 1.2 (0.9-1.3); Partial Thromboplastin Time 32.5 Seconds (22.0-36.0); Prothrombin Time 13.4 Seconds (9.0-12.2)
[2024-12-17 11:49] LABS: Creatine Kinase 9106 U/L (34-171)
[2024-12-17 12:00] VITALS: BP 95/64; PULSE 84; PULSE 90; RESP 20; TEMP 37.1; O2SAT 98
[2024-12-17] MEDS: Heparin/D5w 25K 250 ML Ivpb 25,000 UNIT/250 ML BAG 6.477 UNIT IV (12:03)
[2024-12-17] MEDS: HEPARIN SOD INJ 5000 UNIT/ML VIAL 3250 UNIT IV (12:23)
--- NOTE | 2024-12-17 13:31 | PD.RESPRO ---
Documentation for date of: 12/17/24 Subjective Subjective Interval history: No acute events overnight.?Patient seen and examined at bedside this AM.?He reports feeling better with resolution of the body aches. Patient endorses difficulty urinating with only small amounts at a time and burning sensation. UA was negative on admission. Patient had minimal urine output overnight despite receiving 4L IV fluids yesterday. Per nursing, bladder scan was done which showed >400 ml. Patient states that he needed to urinate however, if repeat bladder scan showed retention Banda to be placed. Labs and vitals were reviewed.?24-hour telemetry reviewed. Patient had no further fevers. BP became low yesterday down to 66/46 after receiving the metoprolol succinate 25 mg therefore it was stopped. BP this morning is soft but maintained MAP >65. Upon reviewing telemetry patient remains in afib however is now rate-controlled with average in the 80-90 range. If rate increases again yet BP still low can initiate amiodarone drip. If BP can tolerate metoprolol tartrate 12.5 mg can be started. Labs reviewed and showed creatinine improved from 1.6 to 1.4, creatine kinase which was measured showed 10,978 which downtrended to 9,106. BNP was 1447 however echo showed normal EF 55%. TSH normal at 1.50. Lipid panel showed TC 87, TG 66, LDL 38, HDL 36. Iron panel showed low iron at 9, TIBC 210, iron saturation 4%. HA1c 5.9. Review of systems otherwise negative except what is mentioned above. Exam Vital Signs Temp Pulse Resp BP Pulse Ox O2 Del Method 98.1 F 86 18 94/59 L 99 Room Air 12/17/24 08:00 12/17/24 08:00 12/17/24 08:00 12/17/24 08:00 12/17/24 08:00 12/17/24 08:00 Narrative Exam Physical Exam General: Awake and in no acute distress. Elderly thin male who speaks [place], interactive with the family. HEENT: Normocephalic, atraumatic, mucous membranes dry. Heart: Irregularly irregular rate and rhythm, 2/6 holosystolic murmur at the left parasternal space Lungs: Clear to auscultation with no wheezing or crackles. Abdomen: Soft, distended appearing bloated, but nontender, positive active bowel sounds. ?No guarding or rebound tenderness. Neurologic: Alert and oriented x3, no gross neurological deficit, and patient able to move all 4 extremities. Extremities: No edema. Skin: No rash or ecchymoses. Objective Labs 12/17/24 05:44 12/17/24 05:44 Labs: Laboratory Results - last 24 hr 12/16/24 12/16/24 12/16/24 10:21 14:50 16:36 WBC RBC Hgb Hct MCV MCH MCHC RDW Std Deviation Plt Count Neut % (Auto) Lymph % (Auto) [place] % (Auto) Eos % (Auto) Baso % (Auto) Neut # (Auto) Lymph # (Auto) [place] # (Auto) Eos # (Auto) Baso # (Auto) Immature Gran # (Auto) Absolute Nucleated RBC Immature Gran % Nucleated RBC % Smear Path Review Sent to Pathologist PT INR APTT Sodium Potassium Chloride Carbon Dioxide Anion Gap BUN Creatinine Estim Creat Clear Calc eGFR BUN/Creatinine Ratio Glucose Estimated Ave Glu mg/dL Hemoglobin A1c Calculated Osmolality Lactic Acid 1.8 Calcium Phosphorus Magnesium Iron TIBC Iron Saturation Unsat Iron Binding Total Creatine Kinase B-Natriuretic Peptide Triglycerides Cholesterol LDL Cholesterol, Calc HDL Cholesterol Cholesterol/HDL Ratio TSH Stool for White Cells Many A 12/16/24 12/17/24 12/17/24 20:47 05:44 10:52 WBC 7.5 D RBC 4.94 Hgb 10.4 L Hct 31.8 L MCV 64 L MCH 21.1 L MCHC 32.7 RDW Std Deviation 33.0 L Plt Count 102 L Neut % (Auto) 73 Lymph % (Auto) 11 [place] % (Auto) 14 H Eos % (Auto) 0 Baso % (Auto) 1 Neut # (Auto) 5.5 Lymph # (Auto) 0.8 L [place] # (Auto) 1.0 H Eos # (Auto) 0.0 Baso # (Auto) 0.1 Immature Gran # (Auto) 0.09 H Absolute Nucleated RBC 0.00 Immature Gran % 1 H Nucleated RBC % 0 Smear Path Review PT 13.4 H INR 1.2 APTT 32.5 Sodium 133 L Potassium 3.8 Chloride 104 Carbon Dioxide 16.3 L Anion Gap 13 BUN 24 H Creatinine 1.4 H Estim Creat Clear Calc 31.6 L eGFR 50 L BUN/Creatinine Ratio [address] Glu mg/dL 123 Hemoglobin A1c 5.9 Calculated Osmolality 269 L Lactic Acid Calcium 7.7 L Phosphorus 3.6 Magnesium 1.8 Iron 9 L TIBC 210 L Iron Saturation 4 L Unsat Iron Binding 201 L Total Creatine Kinase 11839 H 9106 H D B-Natriuretic Peptide 1447 H* Triglycerides 66 Cholesterol 87 L LDL Cholesterol, Calc 38 HDL Cholesterol 36 L Cholesterol/HDL Ratio 2.4 L TSH 1.50 Stool for White Cells Quality Measures Quality Measures sepsis Current suspected stage: sepsis Possible source: unknown Blood cultures ordered: yes Antibiotic ordered: Yes Advance care planning discussed with:: patient and other (niece) Assessment & Plan Assessment Current Active Medications: Generic Name Dose Route Start Last Admin Trade Name Freq PRN Reason Stop Dose Admin Acetaminophen 650 mg 12/16/24 13:06 12/16/24 14:18 Acetaminophen 325 Mg Tablet PO 01/15/25 13:05 650 mg Q6H PRN Administration Fever >100.3 Bisacodyl 10 mg 12/16/24 13:06 Bisacodyl 10 Mg Supp NV 01/15/25 13:05 QDAY PRN Constipation Protocol Piperacillin/Tazobactam/Dextrose 3.375 gm in 50 mls @ 12.5 mls/hr 12/16/24 22:00 12/17/24 05:17 Zosyn IV 12/23/24 21:59 12.5 mls/hr Q8HR MIHAELA Administration Sodium Chloride 1,000 mls @ 70 mls/hr 12/17/24 09:46 12/17/24 10:21 Ns IV 12/18/24 00:03 70 mls/hr .[id number] ONE Administration Heparin Sodium/Dextrose 25,000 unit in 250 mls @ 6.477 mls/hr 12/17/24 11:45 12/17/24 12:03 Heparin In D5w Ivpb IV 12/31/24 11:44 12 units/kg/hr .Q24H MIHAELA 6.477 mls/hr Administration Protocol 12 UNITS/KG/HR Prochlorperazine Maleate 10 mg 12/16/24 13:06 Prochlorperazine Maleate 5 Mg Tablet PO 01/15/25 13:05 Q6H PRN NAUSEA OR VOMITING Plan 79-year-old [place]-speaking male with no known past medical history who presented to the ED on 12/16/2024 with generalized weakness and body aches for 1 day. Cardiology was consulted for new onset afib with RvR present on admission. #Afib with RvR, persistent versus paroxysmal, rate controlled EKG showed afib at a rate of 94, poor quality EKG due to artifact. Patient did have afib on the telemonitor however, with rate going up into the 130s at times. Likely secondary to the underlying sepsis. Patient himself is denying any cardiac symptoms including chest pain, palpitations, shortness of breath, or dizziness. No known cardiac disease, however there is a questionable history of previous stroke in the patient, no official diagnosis and the patient is not on any medication. Rate is controlled for the most part so will not start any IV drips for now. [id number] score is 2-4 depending on if he really has history of stroke in the past. Anticoagulation in this case is recommended. 12/16/2024 TTE showed Normal LV size and function. Estimated EF of 55 to 60%. Diastolic dysfunction present but cannot be graded secondary to A-fib Normal RV size and function. RVSP of 42 mmHg. Moderate TR Moderate LA dilatation. Mild RA dilatation. Mild to moderate MR and mild MAC. Mild aortic valve sclerosis without stenosis. Mild-Mod TR. BNP was 1447. TSH normal at 1.50. HA1c 5.9. Lipid panel showed TC 87, TG 66, LDL 38, HDL 36. Iron panel showed low iron at 9, TIBC 210, iron saturation 4%. Plan: -Heparin drip was started -Repeat EKG for appropriate quality -Can start with metoprolol tartrate 12.5 mg qday if BP is adequate -If rate is not controlled and BP is low can start amio drip -Continue treatment for underlying sepsis #Rhabdomyolysis #Ground-level mechanical fall Patient had a fall at home and down time was unknown, per patient and family he was not down for more than a few hours at most but it is uncertain how reliable this is. Patient not endorsing any injuries or focal pain in particular. Creatine kinase which was measured showed 10,978 which downtrended to 9,106. UA positive for 3+ blood but 1 RBC. -Continue treatment with IV fluids -Banda catheter as needed Rest of conditions to continue current management per primary team: #Severe sepsis, unknown source #Microcytic iron deficiency anemia #CHRISTOPHER prerenal versus intrarenal versus underlying CKD #Thrombocytopenia #Hyponatremia - improved #Lactic acidosis - resolved Patient was discussed with the Cardiology attending, Dr. Arreaga. Thank you for allowing us to participate in the care of this patient. Chelsea Schulz, PGY-2 Attending Provider Attestation/Addendum I have personally seen and examined the patient separately on the above date of service and discussed the plan of care with the resident. I reviewed the resident Dr. Corrine Barry consultation progress note and agree with the resident findings and plan in the note above and have also edited the documentation to reflect my findings and plan. Bon Arreaga M.D. Interventional Cardiology
[2024-12-17] MEDS: TAMSULOSIN HCL 0.4 MG CAPSULE PO (15:46)
[2024-12-17 16:00] VITALS: BP 107/65; PULSE 74; PULSE 90; RESP 17; TEMP 36.8; O2SAT 97
[2024-12-17 16:32] LABS: Collection Type, Urine Clean Catch; Squamous Epithelial Cell,Urine 0 /hpf (0-5)
[2024-12-17 16:38] LABS: Bilirubin,Urine Negative (Negative); Blood,Urine 2+ (Negative); Clarity,Urine Clear (Clear/Hazy); Color,Urine Yellow (Lt Yel-Yel); Glucose, Urine Negative (Negative); Ketones,Urine Trace (Negative); Leukocyte Esterase,Urine Negative (Negative); Nitrite,Urine Negative (Negative); PH,Urine 5.5 (5.0-7.0); Protein,Urine 1+ (Neg - Trace); RBC,Urine 2 /hpf (0-3); Specific Gravity,Urine 1.023 (1.001-1.035); Urobilinogen,Urine Negative mg/dL (0.0-1.0); WBC,Urine 1 /hpf (0-5)
--- NOTE | 2024-12-17 17:42 | EKG_ITS ---
[facility] Test Date: 2024-12-17 Pat Name: MOISES SCHMID [facility] Healthcare Advisory Services Manager: LAKESHA : 1945 Requested By: Chelsea Schulz Order Number: [id number] Reading MD: Chelsea Schulz Measurements Intervals [place] Rate: 90 P: IA: QRS: 10 QRSD: 97 T: -21 QT: 384 QTc: 471 Interpretive Statements ATRIAL FIBRILLATION MINIMAL ST DEPRESSION ABNORMAL RHYTHM ECG Compared to ECG 12/16/2024 10:45:58 ST (T wave) deviation now present Ventricular premature complex(es) no longer present Aberrant conduction of supraventricular beat(s) no longer present T-wave abnormality no longer present /store/S0/[id number]
[2024-12-17 20:00] VITALS: BP 103/58; PULSE 83; RESP 19; TEMP 36.3; O2SAT 96
[2024-12-18] VITALS (7 sets, daily range): BP systolic 91–112; BP diastolic 59–67; PULSE 82–124; RESP 17–21; TEMP 36–36.6; O2SAT 97–99; BMI 21.3
[2024-12-18 01:19] LABS: Partial Thromboplastin Time 52.7 Seconds (22.0-36.0)
[2024-12-18] MEDS: PIPER/TAZO 3.375 GM PREMIX 3.375 GM/50 ML BAG IV ×3 (05:10→21:00)
[2024-12-18 05:28] LABS: OBS Card Lot # 23001; OBS Developer Lot # 28005; OBS Performed By adamk; OBS QC OK? Yes; Occult Blood, Stool Positive (Negative)
[2024-12-18 06:15] LABS: Basophils # (Auto) 0.1 Thou/mm3 (0.0-0.2); Basophils % (Auto) 1 % (0-2.5); Eosinophils # (Auto) 0.1 Thou/mm3 (0.0-0.5); Eosinophils % (Auto) 1 % (0-10); Hematocrit 28.7 % (41.0-53.0); Hemoglobin 9.8 g/dL (13.5-16.0); Immature Granulocytes % (Auto) 1 % (0-0); Immature Granulocytes Auto 0.04 Thou/mm3 (0.00-0.00); Lymphocytes # (Auto) 1.5 Thou/mm3 (1.0-4.8); Lymphocytes % (Auto) 20 % (10-50); Mean Corpuscular HGB Conc 34.1 g/dl (31.0-37.0); Mean Corpuscular Hemoglobin 21.3 pg (25.0-35.0); Mean Corpuscular Volume 62 fL (80-100); Monocytes # (Auto) 1.1 Thou/mm3 (0.0-0.8); Monocytes % (Auto) 15 % (0-12); Neutrophils # (Auto) 4.7 Thou/mm3 (1.8-7.7); Neutrophils % (Auto) 63 % (37-80); Nucleated Red Blood Cell % 0 /100 WBC (0); Platelet Count 97 Thou/mm3 (140-440); RDW Standard Deviation 31.8 fL (35.1-43.9); Red Blood Count 4.61 Miln/mm3 (4.50-5.90); White Blood Count 7.5 Thou/mm3 (3.8-10.6)
[2024-12-18 06:48] LABS: Partial Thromboplastin Time 52.9 Seconds (22.0-36.0)
[2024-12-18 07:01] LABS: Anion Gap 11 (7-16); BUN/Creatinine Ratio 20 Ratio (12-20); Blood Urea Nitrogen 26 mg/dL (9-23); Calcium 7.4 mg/dL (8.3-10.6); Carbon Dioxide 15.6 mMol/L (20.0-31.0); Chloride 107 mMol/L (98-107); Creatinine (Component) 1.3 mg/dL (0.6-1.3); Estimated Creatinine Clearance 37.7 mL/min (>60); Glucose 102 mg/dL (74-106); Magnesium 1.7 mg/dL (1.6-2.6); Osmolality,Calculated 272 (275-295); Potassium 3.2 mMol/L (3.4-5.1); Sodium 134 mMol/L (136-145); eGFR 55 See Note
[2024-12-18 07:13] LABS: Creatine Kinase 4469 U/L (34-171)
[2024-12-18] MEDS: Magnesium Sulfate 2 GM Ivpb 2 GM/50 ML BAG IV (08:40)
[2024-12-18] MEDS: POTASSIUM CHLORIDE 20 mEq TABCR 40 MEQ PO (08:40)
[2024-12-18] MEDS: TAMSULOSIN HCL 0.4 MG CAPSULE PO (08:41)
[2024-12-18 09:16] LABS: Partial Thromboplastin Time 42.4 Seconds (22.0-36.0)
[2024-12-18] MEDS: HEPARIN SOD INJ 5000 UNIT/ML VIAL 1800 UNIT IVP (10:03)
[2024-12-18] MEDS: METOPROLOL SUCCINATE XL 25 MG TABCR PO (10:04)
[2024-12-18 10:09] LABS: Alanine Aminotransferase 50 U/L (10-49); Albumin, Serum 2.9 gm/dL (3.4-4.8); Alkaline Phosphatase 47 U/L (46-116); Aspartate Amino Transferase 166 U/L (0-34); Bilirubin,Direct 0.4 mg/dL (0.0-0.3); Bilirubin,Total 0.9 mg/dL (0.3-1.2); Total Protein 5.1 gm/dL (5.7-8.2)
[2024-12-18 10:14] LABS: Chloride,Urine Random 72.6 mMol/L (55.0-125.0); Potassium,Urine Random 22 mMol/L (12-62); Sodium,Urine Random 44.5 mMol/L (20.0-110.0)
[2024-12-18] MEDS: FERRIC SOD GLUC INJ 125 MG in SODIUM CHLORIDE 0.9% 100 ML 110 MG IV (11:56)
--- NOTE | 2024-12-18 15:06 | ESPR_ITS ---
<Statement entered by Shane Mcdonald MD - 12/19/24 07:29> Senior Resident Attestation: I supervised/discussed management plan with sports marketing internship physician Dr. Diaz, and was involved in the care of this patient. I personally saw and examined the patient and discussed the assessment and plan with the entire medicine team, including my attending. I agree with the assessment and plan as documented. Patient's care was discussed with attending physician, Dr. Salinas. hSane Mcdonald MD PGY-2. Documentation for date of: 12/18/24 Subjective Subjective Interval history: Patient is seen and examined at bedside. No acute overnight events. Patient had multiple diarrheal episodes with small quantity during night. Denies any other complaints Urine output over last 24 hours is around 1200 mL. Vitals are stable except for heart rate of 102 110 bpm. On physical examination, pansystolic murmur heard at tricuspid area Labs showed Hb 9.8, sodium 134, potassium 3.2, bicarb 15.6. Transaminase levels are uptrending Creatinine kinase levels are downtrending and improved to 4469 40 mill equivalents of oral potassium is given. we will continue IV fluids Dr. Valentin was consulted in view of iron deficiency anemia in the setting of positive occult blood Exam Vital Signs Temp Pulse Resp BP Pulse Ox O2 Del Method 97.5 F 105 H 17 112/67 98 Room Air 12/18/24 08:00 12/18/24 10:04 12/18/24 08:00 12/18/24 10:04 12/18/24 08:00 12/18/24 08:00 Narrative Exam General: Awake. Fragile, looks dehydrated HEENT: Normocephalic, atraumatic, mucous membranes moist. Heart: Irregular rate and rhythm, pansystolic murmur heard at tricuspid area Lungs: Clear to auscultation with no wheezing or crackles. Abdomen: Soft, nondistended, nontender, positive bowel sounds. ?No guarding or rebound tenderness. Neurologic: Alert and oriented x3, no gross neurological deficit, and patient able to move all 4 extremities. Extremities: No edema. Skin: No rash or ecchymoses. Objective Labs 12/22/24 04:54 12/22/24 04:54 Labs: Laboratory Results - last 24 hr 12/17/24 12/17/24 12/17/24 16:24 17:35 23:50 WBC RBC Hgb Hct MCV MCH MCHC RDW Std Deviation Plt Count Neut % (Auto) Lymph % (Auto) Delta % (Auto) Eos % (Auto) Baso % (Auto) Neut # (Auto) Lymph # (Auto) Delta # (Auto) Eos # (Auto) Baso # (Auto) Immature Gran # (Auto) Absolute Nucleated RBC Immature Gran % Nucleated RBC % APTT 51.0 H D Sodium Potassium Chloride Carbon Dioxide Anion Gap BUN Creatinine Estim Creat Clear Calc eGFR BUN/Creatinine Ratio Glucose Calculated Osmolality Calcium Magnesium Total Bilirubin Direct Bilirubin AST ALT Alkaline Phosphatase Total Creatine Kinase Total Protein Albumin Ur Collection Type Clean Catch Urine Color Yellow Urine Clarity Clear Urine pH 5.5 Ur Specific [place] 1.023 Urine Protein 1+ A Urine Glucose (UA) Negative Urine Ketones Trace Urine Blood 2+ A Urine Nitrite Negative Urine Bilirubin Negative Urine Urobilinogen (Auto) Negative Ur Leukocyte Esterase Negative Urine RBC 2 Urine WBC 1 Ur Squamous Epith Cells 0 Urine Bacteria None Ur Random Sodium Ur Random Potassium Ur Random Chloride Stool Occult Blood Positive A 12/18/24 12/18/24 12/18/24 00:26 04:46 07:45 WBC 7.5 RBC 4.61 Hgb 9.8 L Hct 28.7 L MCV 62 L MCH 21.3 L MCHC 34.1 RDW Std Deviation 31.8 L Plt Count 97 L Neut % (Auto) 63 Lymph % (Auto) 20 Delta % (Auto) 15 H Eos % (Auto) 1 Baso % (Auto) 1 Neut # (Auto) 4.7 Lymph # (Auto) 1.5 Delta # (Auto) 1.1 H Eos # (Auto) 0.1 Baso # (Auto) 0.1 Immature Gran # (Auto) 0.04 H Absolute Nucleated RBC 0.00 Immature Gran % 1 H Nucleated RBC % 0 APTT 52.7 H 52.9 H 42.4 H D Sodium 134 L Potassium 3.2 L D Chloride 107 Carbon Dioxide 15.6 L Anion Gap 11 BUN 26 H Creatinine 1.3 Estim Creat Clear Calc 37.7 L eGFR 55 L BUN/Creatinine Ratio 20 Glucose 102 Calculated Osmolality 272 L Calcium 7.4 L Magnesium 1.7 Total Bilirubin 0.9 Direct Bilirubin 0.4 H AST 166 H ALT 50 H Alkaline Phosphatase 47 D Total Creatine Kinase 4469 H D Total Protein 5.1 L Albumin 2.9 L D Ur Collection Type Urine Color Urine Clarity Urine pH Ur Specific [place] Urine Protein Urine Glucose (UA) Urine Ketones Urine Blood Urine Nitrite Urine Bilirubin Urine Urobilinogen (Auto) Ur Leukocyte Esterase Urine RBC Urine WBC Ur Squamous Epith Cells Urine Bacteria Ur Random Sodium Ur Random Potassium Ur Random Chloride Stool Occult Blood 12/18/24 09:00 WBC RBC Hgb Hct MCV MCH MCHC RDW Std Deviation Plt Count Neut % (Auto) Lymph % (Auto) [place] % (Auto) Eos % (Auto) Baso % (Auto) Neut # (Auto) Lymph # (Auto) Delta # (Auto) Eos # (Auto) Baso # (Auto) Immature Gran # (Auto) Absolute Nucleated RBC Immature Gran % Nucleated RBC % APTT Sodium Potassium Chloride Carbon Dioxide Anion Gap BUN Creatinine Estim Creat Clear Calc eGFR BUN/Creatinine Ratio Glucose Calculated Osmolality Calcium Magnesium Total Bilirubin Direct Bilirubin AST ALT Alkaline Phosphatase Total Creatine Kinase Total Protein Albumin Ur Collection Type Urine Color Urine Clarity Urine pH Ur Specific [place] Urine Protein Urine Glucose (UA) Urine Ketones Urine Blood Urine Nitrite Urine Bilirubin Urine Urobilinogen (Auto) Ur Leukocyte Esterase Urine RBC Urine WBC Ur Squamous Epith Cells Urine Bacteria Ur Random Sodium 44.5 Ur Random Potassium 22 Ur Random Chloride 72.6 Stool Occult Blood Quality Measures Quality Measures sepsis Current suspected stage: ruled out Possible source: unknown Blood cultures ordered: yes Antibiotic ordered: Yes Advance care planning discussed with:: patient Assessment & Plan Assessment Current Active Medications: Generic Name Dose Route Start Last Admin Trade Name Freq PRN Reason Stop Dose Admin Acetaminophen 650 mg 12/16/24 13:06 12/16/24 14:18 Acetaminophen 325 Mg Tablet PO 01/15/25 13:05 650 mg Q6H PRN Administration Fever >100.3 Bisacodyl 10 mg 12/16/24 13:06 Bisacodyl 10 Mg Supp MD 01/15/25 13:05 QDAY PRN Constipation Protocol Piperacillin/Tazobactam/Dextrose 3.375 gm in 50 mls @ 12.5 mls/hr 12/16/24 22:00 12/18/24 13:02 Zosyn IV 12/23/24 21:59 12.5 mls/hr Q8HR MIHAELA Administration Heparin Sodium/Dextrose 25,000 unit in 250 mls @ 6.477 mls/hr 12/17/24 11:45 12/18/24 10:09 Heparin In D5w Ivpb IV 12/31/24 11:44 14 units/kg/hr .Q24H MIHAELA 7.557 mls/hr Titration Protocol 12 UNITS/KG/HR Metoprolol Succinate 25 mg 12/18/24 09:45 12/18/24 10:04 Metoprolol Succinate Xl 25 Mg Tabcr PO 01/17/25 09:44 25 mg QDAY MIHAELA Administration Prochlorperazine Maleate 10 mg 12/16/24 13:06 Prochlorperazine Maleate 5 Mg Tablet PO 01/15/25 13:05 Q6H PRN NAUSEA OR VOMITING Tamsulosin HCl 0.4 mg 12/17/24 15:15 12/18/24 08:41 Tamsulosin Hcl 0.4 Mg Capsule PO 01/16/25 15:14 0.4 mg QDAY MIHAELA Administration Plan A 79-year-old ilocano speaking patient with past medical history of CVA, but not on any medication was brought to the hospital by his niece with chief complaints of generalized weakness since 1 day and admitted for suspicion of sepsis #Fever #Sepsis vs Viral illness vs Gastroenteritis - Brought to the hospital with the chief complaints of involuntary defecation and urination which is unusual for the patient - Also c/o severe body pains, but not able to localise the location - In the ED, patient vitals are stable except for temp of 100.6F, other vitals are stable - Labs are significant for hb 10.8, PLT 125, Sodium 130, Lactate 3, procal 5.07 - EKG showed afib with CVR. Chest x Ray did not show any filtrates - US Abdomen did not show any significant pathology Plan - Received 2L bolus in the ED. 2 boluses of 500ml are given later - Zosyn started ( 12/16 - - Blood cultures and stool studies sent - C. difficile pending #Afib - New onset vs paroxysmal vs persistent -Patient was found to have afib on routine EKG -Not sure if patient had previous afib as patient does not have previous history and not following any PCP -Echo showed Normal LV size and function. Estimated EF of 55 to 60%. Diastolic dysfunction present but cannot be graded secondary to A-fib Normal RV size and function. RVSP of 42 mmHg. Moderate TR Plan - Patient initially found to have RVR for which metoprolol 25mg is given -Started on metoprolol 25 Mg today, will monitor blood pressures and heart rate, titrate medications accordingly -As patient is having [id number] of 2, started on heparin drip -Will change anticoagulation to Eliquis later #CHRISTOPHER vs acute on CKD IIIa, resolving #Rhabdomyolysis, resolving -Creatinine at the time of admission is 1.6, improved to 1.3 today [place] [address], improved [place] 4469 today -Baseline creatinine is not available -Urinalysis showed 1+ proteinuria Plan -Patient is currently on IV fluids, LR @ 75ml/hr -will monitor RFT -Avoid nephrotoxic medications and renally dose the medications # Hypokalemia # Non-anion gap metabolic acidosis -Potassium as of 12/18/2024 is 3.2, bicarb is 15.6 -Likely due to the diarrheal episodes that patient is having overnight Plan -Patient is on IV maintenance fluids, LR at 75 mL/h -40 mill equivalents of p.o. potassium is given -Will monitor electrolytes and replace accordingly # Transaminitis -Patient was found to have elevated ALT and AST -Likely due to acute illness -Will continue IV fluids -Will trend liver enzymes. #Lactic acidosis, resolved Likely due to diarrhea -Lactate at the time of admission is 3 and later improved to 1.8 after fluid bolus #Microcytic Hypochromic anemia - Hb at the time of admission is 10.8, MCV, MCH and MCHC is low -Stool for occult blood and iron panel is ordered -occult blood came back positive and found to have severe iron deficiency anemia -Dr. Valentin was consulted, will appreciate recommendations #Hyponatremia, resolving - Sodium at the time of admission is 130, improved to 134 today - will monitor electrolytes Hospital Maintenance: Dispo: tele DVT ppx: SCD GI ppx: protonix Diet: Clear liquid IV lines:peripheral Code status:Full Patient plan of care was discussed with the attending physician, Dr. Salinas and senior resident Dr. Harry Diaz, PGY1 Attending Provider Attestation/Addendum Patient seen and examined at bedside with resident. Agree with assessment and plan as dictated above. Derek Salinas MD
[2024-12-18] MEDS: RINGERS LACTATED 1000 ML 1,000 ML 75 ML IV (15:42)
--- NOTE | 2024-12-18 15:51 | ESPR_ITS ---
Documentation for date of: 12/18/24 Subjective Subjective Interval history: No acute overnight events noted. Seen and examined at bedside patient does not have any complaints at this time. Denies palpitations, chest discomfort, shortness of breath, lightheadedness. head insulation board saw operator reviewed and continues to be in A-fib but rate controlled with heart rate in the 90s. Other vital signs stable. K noted to be low at 3.2, Mg 1.7 and repleted by primary team. CHRISTOPHER and CK improving, while LFTs noted to increase. Patient continues been heparin drip, when primary team ready to transition to p.o. anticoagulation recommend Eliquis 2.5 mg twice daily given patient's age and weight. Exam Vital Signs Temp Pulse Resp BP Pulse Ox O2 Del Method 97.5 F 105 H 17 112/67 98 Room Air 12/18/24 08:00 12/18/24 10:04 12/18/24 08:00 12/18/24 10:12/18/24 08:00 12/18/24 08:00 Narrative Exam General: AOx3, no acute distress, able to speak full sentences HEENT: NC/AT, mucous membranes moist, bilateral sclera anicteric Cardiovascular: irregular rhythm, regular rate, S1/S2 present, no murmurs appreciated Pulmonary: clear to auscultation bilaterally, no rales/rhonchi/wheezes Abdominal: soft, non-tender, non-distended, no rebound/guarding, normal bowel sounds present Musculoskeletal: normal ROM, no peripheral edema Skin: warm and dry, intact, no rashes Neuro: CN II-XII intact, no focal deficits Objective Labs 12/18/24 04:46 12/18/24 04:46 Labs: Laboratory Results - last 24 hr 12/17/24 12/17/24 12/17/24 16:24 17:35 23:50 WBC RBC Hgb Hct MCV MCH MCHC RDW Std Deviation Plt Count Neut % (Auto) Lymph % (Auto) [place] % (Auto) Eos % (Auto) Baso % (Auto) Neut # (Auto) Lymph # (Auto) [place] # (Auto) Eos # (Auto) Baso # (Auto) Immature Gran # (Auto) Absolute Nucleated RBC Immature Gran % Nucleated RBC % APTT 51.0 H D Sodium Potassium Chloride Carbon Dioxide Anion Gap BUN Creatinine Estim Creat Clear Calc eGFR BUN/Creatinine Ratio Glucose Calculated Osmolality Calcium Magnesium Total Bilirubin Direct Bilirubin AST ALT Alkaline Phosphatase Total Creatine Kinase Total Protein Albumin Ur Collection Type Clean Catch Urine Color Yellow Urine Clarity Clear Urine pH 5.5 Ur Specific [place] 1.023 Urine Protein 1+ A Urine Glucose (UA) Negative Urine Ketones Trace Urine Blood 2+ A Urine Nitrite Negative Urine Bilirubin Negative Urine Urobilinogen (Auto) Negative Ur Leukocyte Esterase Negative Urine RBC 2 Urine WBC 1 Ur Squamous Epith Cells 0 Urine Bacteria None Ur Random Sodium Ur Random Potassium Ur Random Chloride Stool Occult Blood Positive A 12/18/24 12/18/24 12/18/24 00:26 04:46 07:45 WBC 7.5 RBC 4.61 Hgb 9.8 L Hct 28.7 L MCV 62 L MCH 21.3 L MCHC 34.1 RDW Std Deviation 31.8 L Plt Count 97 L Neut % (Auto) 63 Lymph % (Auto) 20 [place] % (Auto) 15 H Eos % (Auto) 1 Baso % (Auto) 1 Neut # (Auto) 4.7 Lymph # (Auto) 1.5 [place] # (Auto) 1.1 H Eos # (Auto) 0.1 Baso # (Auto) 0.1 Immature Gran # (Auto) 0.04 H Absolute Nucleated RBC 0.00 Immature Gran % 1 H Nucleated RBC % 0 APTT 52.7 H 52.9 H 42.4 H D Sodium 134 L Potassium 3.2 L D Chloride 107 Carbon Dioxide 15.6 L Anion Gap 11 BUN 26 H Creatinine 1.3 Estim Creat Clear Calc 37.7 L eGFR 55 L BUN/Creatinine Ratio 20 Glucose 102 Calculated Osmolality 272 L Calcium 7.4 L Magnesium 1.7 Total Bilirubin 0.9 Direct Bilirubin 0.4 H AST 166 H ALT 50 H Alkaline Phosphatase 47 D Total Creatine Kinase 4469 H D Total Protein 5.1 L Albumin 2.9 L D Ur Collection Type Urine Color Urine Clarity Urine pH Ur Specific [place] Urine Protein Urine Glucose (UA) Urine Ketones Urine Blood Urine Nitrite Urine Bilirubin Urine Urobilinogen (Auto) Ur Leukocyte Esterase Urine RBC Urine WBC Ur Squamous Epith Cells Urine Bacteria Ur Random Sodium Ur Random Potassium Ur Random Chloride Stool Occult Blood 12/18/24 09:00 WBC RBC Hgb Hct MCV MCH MCHC RDW Std Deviation Plt Count Neut % (Auto) Lymph % (Auto) [place] % (Auto) Eos % (Auto) Baso % (Auto) Neut # (Auto) Lymph # (Auto) [place] # (Auto) Eos # (Auto) Baso # (Auto) Immature Gran # (Auto) Absolute Nucleated RBC Immature Gran % Nucleated RBC % APTT Sodium Potassium Chloride Carbon Dioxide Anion Gap BUN Creatinine Estim Creat Clear Calc eGFR BUN/Creatinine Ratio Glucose Calculated Osmolality Calcium Magnesium Total Bilirubin Direct Bilirubin AST ALT Alkaline Phosphatase Total Creatine Kinase Total Protein Albumin Ur Collection Type Urine Color Urine Clarity Urine pH Ur Specific [place] Urine Protein Urine Glucose (UA) Urine Ketones Urine Blood Urine Nitrite Urine Bilirubin Urine Urobilinogen (Auto) Ur Leukocyte Esterase Urine RBC Urine WBC Ur Squamous Epith Cells Urine Bacteria Ur Random Sodium 44.5 Ur Random Potassium 22 Ur Random Chloride 72.6 Stool Occult Blood Quality Measures Quality Measures sepsis Current suspected stage: ruled out Possible source: unknown Blood cultures ordered: yes Antibiotic ordered: Yes Advance care planning discussed with:: patient Assessment & Plan Assessment Current Active Medications: Generic Name Dose Route Start Last Admin Trade Name Freq PRN Reason Stop Dose Admin Acetaminophen 650 mg 12/16/24 13:06 12/16/24 14:18 Acetaminophen 325 Mg Tablet PO 01/15/25 13:05 650 mg Q6H PRN Administration Fever >100.3 Bisacodyl 10 mg 12/16/24 13:06 Bisacodyl 10 Mg Supp MI 01/15/25 13:05 QDAY PRN Constipation Protocol Piperacillin/Tazobactam/Dextrose 3.375 gm in 50 mls @ 12.5 mls/hr 12/16/24 22:00 12/18/24 13:02 Zosyn IV 12/23/24 21:59 12.5 mls/hr Q8HR MIHAELA Administration Heparin Sodium/Dextrose 25,000 unit in 250 mls @ 6.477 mls/hr 12/17/24 11:45 12/18/24 10:09 Heparin In D5w Ivpb IV 12/31/24 11:44 14 units/kg/hr .Q24H MIHAELA 7.557 mls/hr Titration Protocol 12 UNITS/KG/HR Lactated Ringer's 1,000 mls @ 75 mls/hr 12/18/24 15:09 12/18/24 15:42 Lactated Ringers IV 01/17/25 15:08 75 mls/hr .[id number] MIHAELA Administration Metoprolol Succinate 25 mg 12/18/24 09:45 12/18/24 10:04 Metoprolol Succinate Xl 25 Mg Tabcr PO 01/17/25 09:44 25 mg QDAY MIHAELA Administration Prochlorperazine Maleate 10 mg 12/16/24 13:06 Prochlorperazine Maleate 5 Mg Tablet PO 01/15/25 13:05 Q6H PRN NAUSEA OR VOMITING Tamsulosin HCl 0.4 mg 12/17/24 15:15 12/18/24 08:41 Tamsulosin Hcl 0.4 Mg Capsule PO 01/16/25 15:14 0.4 mg QDAY [facility] Administration Plan Macy Chen is an 79-y/o male with no significant PMHx except for possible CVA with no residual deficits was brought to ED for further evaluation of generalized weakness and fever. Apparently has been doing well until night before admission and overnight went to bathroom and fell down after twisting his ankle. Denies LOC/syncope. Found on bed with involuntary defecation and urination, which has not happened before. Since morning he?s had severe lower body pains, diarrhea and questionable subjective fever and so was brought to ED. Denies chest discomfort, SOB, orthopnea, PND, palpitations, leg swelling, or N/V, fever or chills. Endorses right flank pain as per the niece who is at the bedside. At baseline, he does not need a walker and is ADL independent but IADL dependent. Lives with daughter, son-in-law, and niece helps him from time to time. Cardiology was consulted for further evaluation of possible new onset a- fib. #A-fib with RVR, persistent versus paroxysmal, rate controlled EKG showed afib with 94 bpm, poor quality due to artifact. Had a-fib on telemonitor with rate going up into 130s at times, likely secondary to underlying sepsis. Denying CP, palpitations, SOB, or dizziness. No known cardiac disease but questionable history of previous stroke, though no official diagnosis and not on any medications. TTE 12/16: Normal LV size and function, EF 55 to 60%, diastolic dysfunction present but cannot be graded due to A-fib. RVSP 42 mmHg, moderate TR, normal RV size and function. Moderate LA dilatation, mild RA dilatation. Mild to moderate MR, mild MAC, mild AV sclerosis without stenosis, mild to moderate TR. Recommend anticoagulation due [id number] score of 2-4 ? Continue metoprolol succinate 25 mg p.o. daily and uptitrate as needed ? Continue heparin drip as seen fit by primary team ? Once ready to transition to p.o. anticoagulation recommend Eliquis 2.5 mg p.o. twice daily given age and weight ? Follow-up echo to further evaluate LV and RV function, diastolic function, and LA size ? Keep Mg > 2, K > 4 #Sepsis with unclear source #Acute kidney injury versus acute on chronic kidney disease stage III #Rhabdomyolysis #Transaminitis #Fall #Chronic normocytic anemia ? Management of rest of the medical conditions as per primary team and other consultants. ----- Plan discussed with attending physician Dr. Gibson Torres MD PGY-1 Internal Medicine Attending Provider Attestation/Addendum I have personally seen and examined the patient separately on the above date of service and discussed the plan of care with the resident. I reviewed the resident Dr. Memo Torres consultation progress note and agree with the resident findings and plan in the note above and have also edited the documentation to reflect my findings and plan. Bon Arreaga M.D. Interventional Cardiology
[2024-12-18 16:45] LABS: Partial Thromboplastin Time > 139.0 Seconds (22.0-36.0)
[2024-12-18 17:04] LABS: Clostridium Difficile PCR Negative (Negative)
[2024-12-18 18:14] LABS: Partial Thromboplastin Time 129.7 Seconds (22.0-36.0)
--- NOTE | 2024-12-18 20:37 | ESCONSULT_ITS ---
HPI Data of Consult Requesting Physician: Bimal Merino MD Primary Care Provider: Physician No Primary/Family Consult Narrative Reason for consult: FOBT positive, H&H 9.8 and 28.7 History of present illness: 79 years old male comes in for evaluation to the emergency room when he presented with full body aches and a fever of 102.6 Patient was found to have [id number] which is trending downwards mostly at this level of 4469 I have been consulted as patient has a hemoglobin 9.8 hematocrit 28.7 iron saturation of 4% and FOBT positive Patient does have diarrhea but no sree bleeding cc:: cc: Bimal Merino MD Review of Systems Review of Systems Systems Reviewed: All systems reviewed, normal except as documented Past Medical History Surgical History OTHER SURGICAL HX: As in the history of present illness Meds Home Medications and Allergies Home Medications ?Medication ?Instructions ?Recorded ?Confirmed ?Type No Known Home Medications 12/16/24 04/0 01/06 History Allergies Allergy/AdvReac Type Severity Reaction Status Date / Time No Known Allergies Allergy Verified 12/16/24 13:57 Exam Vital Signs Temp Pulse Resp BP Pulse Ox O2 Del Method 97.5 F 82 19 97/59 L 98 Room Air 12/18/24 16:00 12/18/24 16:00 12/18/24 16:00 12/18/24 16:00 12/18/24 16:00 12/18/24 16:00 Routine Abdominal Exam Comments: Soft nontender Results Labs 12/18/24 04:46 12/18/24 04:46 Labs: Short CBC 12/18/24 Range/Units 04:46 WBC 7.5 (3.8-10.6) Thou/mm3 Hgb 9.8 L (13.5-16.0) g/dL Hct 28.7 L (41.0-53.0) % Plt Count 97 L (140-440) Thou/mm3 BMP 12/18/24 04:46 Sodium 134 L Potassium 3.2 L D Chloride 107 Carbon Dioxide 15.6 L BUN 26 H Creatinine 1.3 Glucose 102 Calcium 7.4 L Cardiac Enzymes 12/18/24 Range/Units 04:46 Total Creatine Kinase 4469 H D (34-171) U/L Liver Function 12/18/24 Range/Units 04:46 Total Bilirubin 0.9 (0.3-1.2) mg/dL Direct Bilirubin 0.4 H (0.0-0.3) mg/dL AST 166 H (0-34) U/L ALT 50 H (10-49) U/L Alkaline Phosphatase 47 D (46-116) U/L Albumin 2.9 L D (3.4-4.8) gm/dL Assessment and Plan Additional Assessment & Plan Additional Plan: # FOBT positive # iron deficiency anemia Patient has other pressing issues at the moment I will avoid scheduling any invasive GI workup till her general medical condition improves Will follow the patient Other medical problems include Rhabdomyolysis LFTs improving most likely hypoxic hepatitis On heparin rancho Thank you very much for the opportunity to participate in the care of this patient
[2024-12-18] MEDS: Heparin/D5w 25K 250 ML Ivpb 25,000 UNIT/250 ML BAG 5.937 UNIT IV (21:07)
[2024-12-19] VITALS (14 sets, daily range): BP systolic 82–118; BP diastolic 48–75; PULSE 84–120; RESP 12–24; TEMP 36–36.6; O2SAT 92–100; BMI 21.3; BMI 21.2
[2024-12-19 01:45] LABS: Partial Thromboplastin Time 94.5 Seconds (22.0-36.0)
[2024-12-19] MEDS: PIPER/TAZO 3.375 GM PREMIX 3.375 GM/50 ML BAG IV (05:17)
[2024-12-19] MEDS: RINGERS LACTATED 1000 ML 1,000 ML 75 ML IV ×2 (05:46→17:52)
[2024-12-19 06:05] LABS: Basophils % (Auto) 1 % (0-2.5); Eosinophils # (Auto) 0.2 Thou/mm3 (0.0-0.5); Eosinophils % (Auto) 2 % (0-10); Hematocrit 26.7 % (41.0-53.0); Immature Granulocytes % (Auto) 1 % (0-0); Immature Granulocytes Auto 0.07 Thou/mm3 (0.00-0.00); Lymphocytes # (Auto) 1.3 Thou/mm3 (1.0-4.8); Lymphocytes % (Auto) 19 % (10-50); Mean Corpuscular HGB Conc 33.7 g/dl (31.0-37.0); Mean Corpuscular Hemoglobin 21.1 pg (25.0-35.0); Mean Corpuscular Volume 63 fL (80-100); Monocytes # (Auto) 0.8 Thou/mm3 (0.0-0.8); Monocytes % (Auto) 12 % (0-12); Neutrophils # (Auto) 4.5 Thou/mm3 (1.8-7.7); Neutrophils % (Auto) 66 % (37-80); Nucleated Red Blood Cell % 0 /100 WBC (0); Platelet Count 109 Thou/mm3 (140-440); RDW Standard Deviation 31.3 fL (35.1-43.9); Red Blood Count 4.26 Miln/mm3 (4.50-5.90); White Blood Count 6.8 Thou/mm3 (3.8-10.6)
[2024-12-19 06:31] LABS: Alanine Aminotransferase 47 U/L (10-49); Albumin/Globulin Ratio 1.2 (1.2-2.2); Alkaline Phosphatase 47 U/L (46-116); Anion Gap 8 (7-16); Aspartate Amino Transferase 122 U/L (0-34); BUN/Creatinine Ratio 15 Ratio (12-20); Bilirubin,Total 0.8 mg/dL (0.3-1.2); Blood Urea Nitrogen 16 mg/dL (9-23); Calcium 7.5 mg/dL (8.3-10.6); Calcium (Corrected) 8.3 mg/dL (8.5-10.1); Carbon Dioxide 18.2 mMol/L (20.0-31.0); Chloride 109 mMol/L (98-107); Creatinine (Component) 1.1 mg/dL (0.6-1.3); Estimated Creatinine Clearance 44.6 mL/min (>60); Globulin 2.5 gm/dL (2.3-3.5); Glucose 100 mg/dL (74-106); Magnesium 1.8 mg/dL (1.6-2.6); Osmolality,Calculated 271 (275-295); Potassium 3.2 mMol/L (3.4-5.1); Sodium 135 mMol/L (136-145); Total Protein 5.5 gm/dL (5.7-8.2); eGFR > 60 See Note
[2024-12-19 06:34] LABS: Prothrombin Time 11.3 Seconds (9.0-12.2)
[2024-12-19] MEDS: TAMSULOSIN HCL 0.4 MG CAPSULE PO (08:21)
[2024-12-19] MEDS: Magnesium Sulfate 2 GM Ivpb 2 GM/50 ML BAG IV ×2 (08:21→17:54)
[2024-12-19] MEDS: METOPROLOL SUCCINATE XL 25 MG TABCR PO (08:21)
[2024-12-19] MEDS: POTASSIUM CHLORIDE 20 mEq TABCR 40 MEQ PO ×2 (08:21→14:33)
[2024-12-19 10:07] LABS: Creatine Kinase 2099 U/L (34-171)
[2024-12-19 10:08] LABS: Partial Thromboplastin Time 61.6 Seconds (22.0-36.0)
--- NOTE | 2024-12-19 11:28 | ESPR_ITS ---
Documentation for date of: 12/19/24 Subjective Subjective Interval history: No acute overnight events noted. Patient seen and examined at bedside and currently does not have any complaints. Denies shortness of breath, palpitations, chest discomfort, or lightheadedness. Telemetry reviewed and patient continues to be in atrial fibrillation, currently rate controlled with HR in 80s. Currently on metoprolol XL 25 mg PO daily and heparin drip - when transitioning to PO anticoagulation, start eliquis 2.5 mg PO BID given weight and age. Otherwise, vital signs stable. Labs reviewed and K 3.2, Mg 1.8 and repleted by primary team. Will give an additional 40 mEq of K. Otherwise, renal function improving and creatinine kinase levels also improving. Exam Vital Signs Temp Pulse Resp BP Pulse Ox O2 Del Method 97.8 F 99 19 108/60 98 Room Air 12/19/24 08:00 12/19/24 08:21 12/19/24 08:00 12/19/24 08:21 12/19/24 08:00 12/19/24 08:00 Narrative Exam General: AOx3, no acute distress, able to speak full sentences HEENT: NC/AT, mucous membranes moist, bilateral sclera anicteric Cardiovascular: irregular rhythm, regular rate, S1/S2 present, no murmurs appreciated Pulmonary: clear to auscultation bilaterally, no rales/rhonchi/wheezes Abdominal: soft, non-tender, non-distended, no rebound/guarding, normal bowel sounds present Musculoskeletal: normal ROM, no peripheral edema Skin: warm and dry, intact, no rashes Neuro: CN II-XII intact, no focal deficits Objective Labs 12/19/24 05:33 12/19/24 05:33 Labs: Laboratory Results - last 24 hr 12/17/24 12/18/24 12/18/24 09:00 13:51 15:58 WBC RBC Hgb Hct MCV MCH MCHC RDW Std Deviation Plt Count Neut % (Auto) Lymph % (Auto) [place] % (Auto) Eos % (Auto) Baso % (Auto) Neut # (Auto) Lymph # (Auto) [place] # (Auto) Eos # (Auto) Baso # (Auto) Immature Gran # (Auto) Absolute Nucleated RBC Immature Gran % Nucleated RBC % PT INR APTT Cancelled > 139.0 H* D Sodium Potassium Chloride Carbon Dioxide Anion Gap BUN Creatinine Estim Creat Clear Calc eGFR BUN/Creatinine Ratio Glucose Calculated Osmolality Calcium Corrected Calcium Magnesium Total Bilirubin AST ALT Alkaline Phosphatase Total Creatine Kinase Total Protein Albumin Globulin Albumin/Globulin Ratio Stl C. diff Tox B Gene Negative 12/18/24 12/19/24 12/19/24 17:21 00:37 05:33 WBC 6.8 RBC 4.26 L Hgb 9.0 L Hct 26.7 L MCV 63 L MCH 21.1 L MCHC 33.7 RDW Std Deviation 31.3 L Plt Count 109 L Neut % (Auto) 66 Lymph % (Auto) 19 [place] % (Auto) 12 Eos % (Auto) 2 Baso % (Auto) 1 Neut # (Auto) 4.5 Lymph # (Auto) 1.3 [place] # (Auto) 0.8 Eos # (Auto) 0.2 Baso # (Auto) 0.0 Immature Gran # (Auto) 0.07 H Absolute Nucleated RBC 0.00 Immature Gran % 1 H Nucleated RBC % 0 PT 11.3 INR 1.0 APTT 129.7 H* 94.5 H D 59.0 H D Sodium 135 L Potassium 3.2 L Chloride 109 H Carbon Dioxide 18.2 L Anion Gap 8 BUN 16 Creatinine 1.1 Estim Creat Clear Calc 44.6 L eGFR > 60 BUN/Creatinine Ratio 15 Glucose 100 Calculated Osmolality 271 L Calcium 7.5 L Corrected Calcium 8.3 L Magnesium 1.8 Total Bilirubin 0.8 AST 122 H ALT 47 Alkaline Phosphatase 47 Total Creatine Kinase Total Protein 5.5 L Albumin 3.0 L Globulin 2.5 Albumin/Globulin Ratio 1.2 Stl C. diff Tox B Gene 12/19/24 08:59 WBC RBC Hgb Hct MCV MCH MCHC RDW Std Deviation Plt Count Neut % (Auto) Lymph % (Auto) [place] % (Auto) Eos % (Auto) Baso % (Auto) Neut # (Auto) Lymph # (Auto) [place] # (Auto) Eos # (Auto) Baso # (Auto) Immature Gran # (Auto) Absolute Nucleated RBC Immature Gran % Nucleated RBC % PT INR APTT 61.6 H Sodium Potassium Chloride Carbon Dioxide Anion Gap BUN Creatinine Estim Creat Clear Calc eGFR BUN/Creatinine Ratio Glucose Calculated Osmolality Calcium Corrected Calcium Magnesium Total Bilirubin AST ALT Alkaline Phosphatase Total Creatine Kinase 2099 H D Total Protein Albumin Globulin Albumin/Globulin Ratio Stl C. diff Tox B Gene Quality Measures Quality Measures sepsis Current suspected stage: ruled out Possible source: unknown Blood cultures ordered: yes Antibiotic ordered: Yes Advance care planning discussed with:: patient Assessment & Plan Assessment Current Active Medications: Generic Name Dose Route Start Last Admin Trade Name Freq PRN Reason Stop Dose Admin Acetaminophen 650 mg 12/16/24 13:06 12/16/24 14:18 Acetaminophen 325 Mg Tablet PO 01/15/25 13:05 650 mg Q6H PRN Administration Fever >100.3 Bisacodyl 10 mg 12/16/24 13:06 Bisacodyl 10 Mg Supp [place] 01/15/25 13:05 QDAY PRN Constipation Protocol Heparin Sodium/Dextrose 25,000 unit in 250 mls @ 6.477 mls/hr 12/17/24 11:45 12/19/24 02:09 Heparin In D5w Ivpb IV 12/31/24 11:44 9 units/kg/hr .Q24H MIHAELA 4.858 mls/hr Titration Protocol 12 UNITS/KG/HR Lactated Ringer's 1,000 mls @ 75 mls/hr 12/18/24 15:09 12/19/24 05:46 Lactated Ringers IV 01/17/25 15:08 75 mls/hr .[id number] MIHAELA Administration Metoprolol Succinate 25 mg 12/18/24 09:45 12/19/24 08:21 Metoprolol Succinate Xl 25 Mg Tabcr PO 01/17/25 09:44 25 mg QDAY MIHAELA Administration Prochlorperazine Maleate 10 mg 12/16/24 13:06 Prochlorperazine Maleate 5 Mg Tablet PO 01/15/25 13:05 Q6H PRN NAUSEA OR VOMITING Tamsulosin HCl 0.4 mg 12/17/24 15:15 12/19/24 08:21 Tamsulosin Hcl 0.4 Mg Capsule PO 01/16/25 15:14 0.4 mg QDAY MIHAELA Administration Plan Macy Chen is an 79-y/o male with no significant PMHx except for possible CVA with no residual deficits was brought to ED for further evaluation of generalized weakness and fever. Apparently has been doing well until night before admission and overnight went to bathroom and fell down after twisting his ankle. Denies LOC/syncope. Found on bed with involuntary defecation and urination, which has not happened before. Since morning he?s had severe lower body pains, diarrhea and questionable subjective fever and so was brought to ED. Denies chest discomfort, SOB, orthopnea, PND, palpitations, leg swelling, or N/V, fever or chills. Endorses right flank pain as per the niece who is at the bedside. At baseline, he does not need a walker and is ADL independent but IADL dependent. Lives with daughter, son-in-law, and niece helps him from time to time. Cardiology was consulted for further evaluation of possible new onset a- fib. #A-fib with RVR, persistent versus paroxysmal, rate controlled EKG showed afib with 94 bpm, poor quality due to artifact. Had a-fib on telemonitor with rate going up into 130s at times, likely secondary to underlying sepsis. Denying CP, palpitations, SOB, or dizziness. No known cardiac disease but questionable history of previous stroke, though no official diagnosis and not on any medications. TTE 12/16: Normal LV size and function, EF 55 to 60%, diastolic dysfunction present but cannot be graded due to A-fib. RVSP 42 mmHg, moderate TR, normal RV size and function. Moderate LA dilatation, mild RA dilatation. Mild to moderate MR, mild MAC, mild AV sclerosis without stenosis, mild to moderate TR. Recommend anticoagulation due [id number] score of 2-4 ? Continue metoprolol succinate 25 mg p.o. daily and uptitrate as needed ? Continue heparin drip as seen fit by primary team ? Once ready to transition to p.o. anticoagulation recommend Eliquis 2.5 mg p.o. twice daily given age and weight ? Keep Mg > 2, K > 4 #Sepsis with unclear source #Acute kidney injury versus acute on chronic kidney disease stage III #Rhabdomyolysis #Transaminitis #Fall #Chronic normocytic anemia ? Management of rest of the medical conditions as per primary team and other consultants. ----- Plan discussed with attending physician Dr. Gibson Torres MD PGY-1 Internal Medicine Attending Provider Attestation/Addendum I have personally seen and examined the patient separately on the above date of service and discussed the plan of care with the resident. I reviewed the resident Dr. Memo Torres consultation progress note and agree with the resident findings and plan in the note above and have also edited the documentation to reflect my findings and plan. Bon Arreaga M.D. Interventional Cardiology
--- NOTE | 2024-12-19 12:05 | PC.SS ---
rounding note: Patient pending colonoscopy and EGD. D/c plan remains to return home.
--- NOTE | 2024-12-19 15:01 | ESPR_ITS ---
<Statement entered by Shane Mcdonald MD - 12/21/24 07:35> Senior Resident Attestation: I supervised/discussed management plan with qa intern physician Dr. Diaz, and was involved in the care of this patient. I personally saw and examined the patient and discussed the assessment and plan with the entire medicine team, including my attending. I agree with the assessment and plan as documented. Patient's care was discussed with attending physician, Dr. Ochoa. Shane Mcdonald MD PGY-2. Documentation for date of: 12/19/24 Subjective Subjective Interval history: Patient is seen and examined at bedside. No acute overnight events. Patient denies any other complaints Patient was seen by Dr. Valentin and recommended upper GI endoscopy today Creatinine kinase levels continue to trend down and no further febrile episodes noted Will continue IV fluids for now and Banda catheter will be removed as patient is able to maintain good amount of urine since admission Labs done today showed hypokalemia with potassium 3.2 and 40 mill equivalents of oral potassium is given with 2 g of magnesium Exam Vital Signs Temp Pulse Resp BP Pulse Ox O2 Del Method 96.8 F 92 24 H 105/62 96 Room Air 12/19/24 12:00 12/19/24 12:00 12/19/24 12:00 12/19/24 12:00 12/19/24 12:00 12/19/24 12:00 Narrative Exam General: Awake. Fragile HEENT: Normocephalic, atraumatic, mucous membranes moist. Heart: Irregular rate and rhythm, pansystolic murmur heard at tricuspid area Lungs: Clear to auscultation with no wheezing or crackles. Abdomen: Soft, nondistended, nontender, positive bowel sounds. ?No guarding or rebound tenderness. Neurologic: Alert and oriented x3, no gross neurological deficit, and patient able to move all 4 extremities. Extremities: No edema. Skin: No rash or ecchymoses. Objective Labs 12/20/24 03:55 12/20/24 03:55 Labs: Laboratory Results - last 24 hr 12/17/24 12/18/24 12/18/24 09:00 13:51 15:58 WBC RBC Hgb Hct MCV MCH MCHC RDW Std Deviation Plt Count Neut % (Auto) Lymph % (Auto) [place] % (Auto) Eos % (Auto) Baso % (Auto) Neut # (Auto) Lymph # (Auto) [place] # (Auto) Eos # (Auto) Baso # (Auto) Immature Gran # (Auto) Absolute Nucleated RBC Immature Gran % Nucleated RBC % PT INR APTT Cancelled > 139.0 H* D Sodium Potassium Chloride Carbon Dioxide Anion Gap BUN Creatinine Estim Creat Clear Calc eGFR BUN/Creatinine Ratio Glucose Calculated Osmolality Calcium Corrected Calcium Magnesium Total Bilirubin AST ALT Alkaline Phosphatase Total Creatine Kinase Total Protein Albumin Globulin Albumin/Globulin Ratio Stl C. diff Tox B Gene Negative 12/18/24 12/19/24 12/19/24 17:21 00:37 05:33 WBC 6.8 RBC 4.26 L Hgb 9.0 L Hct 26.7 L MCV 63 L MCH 21.1 L MCHC 33.7 RDW Std Deviation 31.3 L Plt Count 109 L Neut % (Auto) 66 Lymph % (Auto) 19 [place] % (Auto) 12 Eos % (Auto) 2 Baso % (Auto) 1 Neut # (Auto) 4.5 Lymph # (Auto) 1.3 [place] # (Auto) 0.8 Eos # (Auto) 0.2 Baso # (Auto) 0.0 Immature Gran # (Auto) 0.07 H Absolute Nucleated RBC 0.00 Immature Gran % 1 H Nucleated RBC % 0 PT 11.3 INR 1.0 APTT 129.7 H* 94.5 H D 59.0 H D Sodium 135 L Potassium 3.2 L Chloride 109 H Carbon Dioxide 18.2 L Anion Gap 8 BUN 16 Creatinine 1.1 Estim Creat Clear Calc 44.6 L eGFR > 60 BUN/Creatinine Ratio 15 Glucose 100 Calculated Osmolality 271 L Calcium 7.5 L Corrected Calcium 8.3 L Magnesium 1.8 Total Bilirubin 0.8 AST 122 H ALT 47 Alkaline Phosphatase 47 Total Creatine Kinase Total Protein 5.5 L Albumin 3.0 L Globulin 2.5 Albumin/Globulin Ratio 1.2 Stl C. diff Tox B Gene 12/19/24 08:59 WBC RBC Hgb Hct MCV MCH MCHC RDW Std Deviation Plt Count Neut % (Auto) Lymph % (Auto) [place] % (Auto) Eos % (Auto) Baso % (Auto) Neut # (Auto) Lymph # (Auto) [place] # (Auto) Eos # (Auto) Baso # (Auto) Immature Gran # (Auto) Absolute Nucleated RBC Immature Gran % Nucleated RBC % PT INR APTT 61.6 H Sodium Potassium Chloride Carbon Dioxide Anion Gap BUN Creatinine Estim Creat Clear Calc eGFR BUN/Creatinine Ratio Glucose Calculated Osmolality Calcium Corrected Calcium Magnesium Total Bilirubin AST ALT Alkaline Phosphatase Total Creatine Kinase 2099 H D Total Protein Albumin Globulin Albumin/Globulin Ratio Stl C. diff Tox B Gene Quality Measures Quality Measures sepsis Current suspected stage: ruled out Possible source: unknown Blood cultures ordered: yes Antibiotic ordered: No Advance care planning discussed with:: patient Assessment & Plan Assessment Current Active Medications: Generic Name Dose Route Start Last Admin Trade Name Freq PRN Reason Stop Dose Admin Acetaminophen 650 mg 12/16/24 13:06 12/16/24 14:18 Acetaminophen 325 Mg Tablet PO 01/15/25 13:05 650 mg Q6H PRN Administration Fever >100.3 Bisacodyl 10 mg 12/16/24 13:06 Bisacodyl 10 Mg Supp [place] 01/15/25 13:05 QDAY PRN Constipation Protocol Heparin Sodium/Dextrose 25,000 unit in 250 mls @ 6.477 mls/hr 12/17/24 11:45 12/19/24 14:31 Heparin In D5w Ivpb IV 12/31/24 11:44 Not Given .Q24H MIHAELA Protocol 12 UNITS/KG/HR Lactated Ringer's 1,000 mls @ 75 mls/hr 12/18/24 15:09 12/19/24 05:46 Lactated Ringers IV 01/17/25 15:08 75 mls/hr .[id number] MIHAELA Administration Metoprolol Succinate 25 mg 12/18/24 09:45 12/19/24 08:21 Metoprolol Succinate Xl 25 Mg Tabcr PO 01/17/25 09:44 25 mg QDAY MIHAELA Administration Prochlorperazine Maleate 10 mg 12/16/24 13:06 Prochlorperazine Maleate 5 Mg Tablet PO 01/15/25 13:05 Q6H PRN NAUSEA OR VOMITING Tamsulosin HCl 0.4 mg 12/17/24 15:15 12/19/24 08:21 Tamsulosin Hcl 0.4 Mg Capsule PO 01/16/25 15:14 0.4 mg QDAY MIHAELA Administration Plan A 79-year-old ilocano speaking patient with past medical history of CVA, but not on any medication was brought to the hospital by his niece with chief complaints of generalized weakness since 1 day and admitted for suspicion of sepsis #Fever, resolved #2/2 Rhabdomyolysis vs Sepsis vs Viral illness vs Gastroenteritis - Brought to the hospital with the chief complaints of involuntary defecation and urination which is unusual for the patient - Also c/o severe body pains, but not able to localise the location - In the ED, patient vitals are stable except for temp of 100.6F, other vitals are stable - Labs are significant for hb 10.8, PLT 125, Sodium 130, Lactate 3, procal 5.07 - EKG showed afib with CVR. Chest x Ray did not show any filtrates - US Abdomen did not show any significant pathology - C. difficile came back negative - Blood cultures and stool studies sent - negative Plan -Received 2L bolus in the ED. 2 boluses of 500ml are given later -Zosyn started ( 12/16 - 12/19) -Will continue IV fluids, LR at 75 mL/h #Afib - New onset vs paroxysmal vs persistent -Patient was found to have afib on routine EKG -Not sure if patient had previous afib as patient does not have previous history and not following any PCP -Echo showed Normal LV size and function. Estimated EF of 55 to 60%. Diastolic dysfunction present but cannot be graded secondary to A-fib Normal RV size and function. RVSP of 42 mmHg. Moderate TR Plan - Patient initially found to have RVR for which metoprolol 25mg is given -Started on metoprolol 25 Mg, will monitor blood pressures and heart rate, titrate medications accordingly -As patient is having [id number] of 2, started on heparin drip -Will change anticoagulation to Eliquis later #CHRISTOPHER vs acute on CKD IIIa, resolving #Rhabdomyolysis, resolving -Creatinine at the time of admission is 1.6, improved to 1.1 today [place] [address], [place] 2099 today -Baseline creatinine is not available -Urinalysis showed 1+ proteinuria Plan -Patient is currently on IV fluids, LR @ 75ml/hr -will monitor RFT -Avoid nephrotoxic medications and renally dose the medications # Hypokalemia # Non-anion gap metabolic acidosis -Potassium as of 12/19/2024 is 3.2, bicarb is 18.2 -Likely due to the diarrheal episodes that patient is having overnight Plan -Patient is on IV maintenance fluids, LR at 75 mL/h -40 mill equivalents of p.o. potassium is given -2 g of IV magnesium sulfate is given -Will monitor electrolytes and replace accordingly # Transaminitis, resolving -Patient was found to have elevated ALT and AST at the time of admission -ALT levels are within normal limits, AST is 122 -Likely due to acute illness -Will continue IV fluids -Will trend liver enzymes. #Lactic acidosis, resolved Likely due to diarrhea -Lactate at the time of admission is 3 and later improved to 1.8 after fluid bolus #Microcytic Hypochromic anemia - Hb at the time of admission is 10.8, MCV, MCH and MCHC is low -Stool for occult blood and iron panel is ordered -occult blood came back positive and found to have severe iron deficiency anemia -1 dose of Ferrlecit injection is given -Dr. Valentin was consulted, recommended upper GI endoscopy as of 12/19/2024 #Hyponatremia, resolved - Sodium at the time of admission is 130, improved to 135 today - will monitor electrolytes Hospital Maintenance: Dispo: tele DVT ppx: SCD GI ppx: protonix Diet: Clear liquid IV lines:peripheral Code status:Full Patient plan of care was discussed with the attending physician, Dr. Ochoa and senior resident Dr. Harry Diaz, PGY1 Attending Provider Attestation/Addendum I attest that I was physically present for the evaluation, physical examination, lab and imaging review of the patient with the residents. I discussed the case with the residents and agree with the findings and plans of care as documented above. At bedside today, patient states he is feeling well and does not have any new complaints.? He is alert and oriented, able to answer questions and follow commands appropriately. Does not have any new fever episodes.? Stool culture is negative, blood culture have been negative for more than 48 hours.? Patient's febrile episode on symptoms most likely secondary to rhabdomyolysis, antibiotics discontinued.? Stool C. difficile is negative, calprotectin, Giardia and norovirus are pending.? Patient did test positive for occult blood though.? Discussed with gastroenterology, patient being planned for endoscopy today.? Potassium was low at 3.2 this morning, repleted accordingly.? BUN/continue to improve, 16/1.1 today.? Liver function continues to improve as well.? Creatinine kinase continues to decrease, 2098 today. Anish Ochoa MD
--- NOTE | 2024-12-19 18:50 | SUR.PREOP ---
1850 PATIENT IS SCHEDULED FOR AN EGD HOWEVER IS ON A HEPARIN DRIP. IV SEDATION CANNOT BE ADMINISTERED TO A PATIENT ON A HEPARIN DRIP IN THE OR. ORDER TO PAUSE HEPARIN DRIP WAS CARRIED OUT BY PRIMARY NURSE. AT THIS POINT HEPARIN HAS BEEN PAUSED FOR APPROXIMATELY 2 HOURS. ANESTHESIOLOGIST CONSULTED TO ENSURE PATIENT IS A SAFE CANDIDATE FOR IV SEDATION. PER , THE HEPARIN DRIP IS OF NO CONCERN IN REGARDS TO IV SEDATION AND THAT WOULD BE A DECISION FOR TO MAKE IT INCREASES RISK FOR BLEEDING. IS OKAY TO PROCEED WITH PROCEDURE WITH HEPARIN DRIP PAUSED FOR 2 HOURS.
--- NOTE | 2024-12-19 20:17 | EKG_ITS ---
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
[2024-12-19] MEDS: METOPROLOL SUCCINATE XL 25 MG TABCR 12.5 MG PO (20:28)
[2024-12-19 20:56] LABS: Partial Thromboplastin Time 34.7 Seconds (22.0-36.0)
[2024-12-19] MEDS: HEPARIN SOD INJ 5000 UNIT/ML VIAL 3300 UNIT IVP (22:44)
[2024-12-19] MEDS: LEVALBUTEROL RT 0.31 MG/3 ML NEBU INH (23:30)
[2024-12-20] VITALS (10 sets, daily range): BP systolic 101–148; BP diastolic 61–92; PULSE 59–115; RESP 16–24; TEMP 35.9–36.6; O2SAT 93–100; BMI 21.2; BMI 12.0
[2024-12-20] MEDS: MELATONIN 3 MG TABLET 6 MG PO (02:21)
[2024-12-20 04:52] LABS: Partial Thromboplastin Time 115.2 Seconds (22.0-36.0)
[2024-12-20] MEDS: RINGERS LACTATED 1000 ML 1,000 ML 75 ML IV (05:45)
[2024-12-20] MEDS: Heparin/D5w 25K 250 ML Ivpb 25,000 UNIT/250 ML BAG 5.398 UNIT IV (06:02)
[2024-12-20 08:27] LABS: Basophils % (Auto) 1 % (0-2.5); Eosinophils # (Auto) 0.1 Thou/mm3 (0.0-0.5); Eosinophils % (Auto) 2 % (0-10); Hematocrit 26.5 % (41.0-53.0); Immature Granulocytes % (Auto) 2 % (0-0); Immature Granulocytes Auto 0.14 Thou/mm3 (0.00-0.00); Lymphocytes # (Auto) 1.6 Thou/mm3 (1.0-4.8); Lymphocytes % (Auto) 20 % (10-50); Mean Corpuscular Hemoglobin 20.9 pg (25.0-35.0); Mean Corpuscular Volume 62 fL (80-100); Monocytes # (Auto) 1.1 Thou/mm3 (0.0-0.8); Monocytes % (Auto) 14 % (0-12); Neutrophils # (Auto) 4.9 Thou/mm3 (1.8-7.7); Neutrophils % (Auto) 62 % (37-80); Nucleated Red Blood Cell % 0 /100 WBC (0); Platelet Count 163 Thou/mm3 (140-440); RDW Standard Deviation 31.8 fL (35.1-43.9); White Blood Count 7.9 Thou/mm3 (3.8-10.6)
[2024-12-20] MEDS: LEVALBUTEROL RT 0.31 MG/3 ML NEBU INH (08:44)
[2024-12-20 08:57] LABS: Alanine Aminotransferase 54 U/L (10-49); Albumin, Serum 3.2 gm/dL (3.4-4.8); Albumin/Globulin Ratio 1.4 (1.2-2.2); Alkaline Phosphatase 62 U/L (46-116); Anion Gap 8 (7-16); Aspartate Amino Transferase 115 U/L (0-34); BUN/Creatinine Ratio 13 Ratio (12-20); Bilirubin,Total 0.7 mg/dL (0.3-1.2); Blood Urea Nitrogen 13 mg/dL (9-23); Calcium 7.6 mg/dL (8.3-10.6); Calcium (Corrected) 8.2 mg/dL (8.5-10.1); Carbon Dioxide 19.7 mMol/L (20.0-31.0); Chloride 108 mMol/L (98-107); Creatine Kinase 1554 U/L (34-171); Globulin 2.3 gm/dL (2.3-3.5); Glucose 103 mg/dL (74-106); Magnesium 2.2 mg/dL (1.6-2.6); Osmolality,Calculated 272 (275-295); Potassium 4.1 mMol/L (3.4-5.1); Sodium 136 mMol/L (136-145); Total Protein 5.5 gm/dL (5.7-8.2); eGFR > 60 See Note
[2024-12-20] MEDS: TAMSULOSIN HCL 0.4 MG CAPSULE PO (09:18)
[2024-12-20] MEDS: METOPROLOL SUCCINATE XL 25 MG TABCR PO (09:18)
[2024-12-20] MEDS: APIXABAN 2.5 MG TABLET PO ×2 (09:19→20:30)
[2024-12-20] MEDS: QUEtiapine FUMARATE 25 MG TABLET PO (09:55)
--- NOTE | 2024-12-20 10:01 | XR_ITS ---
Examination: AP chest single view technique: AP portable semiupright chest single view Exam date and time: December 20, 2024 1023 hrs. Comparison 12/16/2024 Indications: Shortness of breath today, history atrial fibrillation Findings: Mild to moderate enlargement cardiac contour Moderate vascular congestion Moderate elevation right hemidiaphragm. No lobar pneumonia. No sree pulmonary edema Impression: Moderate vascular congestion, no sree pulmonary edema
[2024-12-20] MEDS: LEVALBUTEROL RT 0.63 MG/3 ML NEBU INH (10:32)
--- NOTE | 2024-12-20 11:01 | PD.RESPRO ---
Documentation for date of: 12/20/24 Subjective Subjective Interval history: No acute overnight events noted, however, patient was noted to become confused and agitated overnight, pulling out leads and IV's and getting out of bed and. This morning patient remained encephalopathic and was given quetiapine at 10 AM. Also underwent EGD last night that showed esophagitis and gastritis. At bedside, patient was oriented to self and birthdate but not year and responding slowly, but noted to have recently been given quetiapine. Otherwise, heart rate noted to be in low 100s and still in atrial fibrillation when reviewing telemetry. Currently on metoprolol succinate 25 mg, can consider uptitrating as blood pressure tolerates. K 4.1 and Mg 2.2, creatine kinase downtrending, renal function improving. Exam Vital Signs Temp Pulse Resp BP Pulse Ox O2 Del Method O2 Flow Rate 97.6 F 108 H 20 110/79 99 Room Air 3 12/20/24 08:00 12/20/24 10:32 12/20/24 10:32 12/20/24 09:18 12/20/24 10:32 12/20/24 08:00 12/19/24 19:36 Narrative Exam General: AOx2, no acute distress, answers questions but responding slowly HEENT: currently undergoing breathing treatment, NC/AT, mucous membranes moist, bilateral sclera anicteric Cardiovascular: irregular rhythm, regular rate, S1/S2 present, no murmurs appreciated Pulmonary: clear to auscultation bilaterally, no rales/rhonchi/wheezes Abdominal: soft, non-tender, non-distended, no rebound/guarding, normal bowel sounds present Musculoskeletal: normal ROM, no peripheral edema Skin: warm and dry, intact, no rashes Neuro: unable to assess Objective Labs 12/20/24 03:55 12/20/24 03:55 Labs: Laboratory Results - last 24 hr 12/19/24 12/19/24 12/20/24 15:10 20:19 03:55 WBC 7.9 RBC 4.30 L Hgb 9.0 L Hct 26.5 L MCV 62 L MCH 20.9 L MCHC 34.0 RDW Std Deviation 31.8 L Plt Count 163 D Neut % (Auto) 62 Lymph % (Auto) 20 [place] % (Auto) 14 H Eos % (Auto) 2 Baso % (Auto) 1 Neut # (Auto) 4.9 Lymph # (Auto) 1.6 [place] # (Auto) 1.1 H Eos # (Auto) 0.1 Baso # (Auto) 0.0 Immature Gran # (Auto) 0.14 H Absolute Nucleated RBC 0.00 Immature Gran % 2 H Nucleated RBC % 0 APTT 47.0 H D 34.7 D 115.2 H* D Sodium 136 Potassium 4.1 D Chloride 108 H Carbon Dioxide 19.7 L Anion Gap 8 BUN 13 Creatinine 1.0 Estim Creat Clear Calc 49.0 L eGFR > 60 BUN/Creatinine Ratio 13 Glucose 103 Calculated Osmolality 272 L Calcium 7.6 L Corrected Calcium 8.2 L Magnesium 2.2 Total Bilirubin 0.7 AST 115 H ALT 54 H Alkaline Phosphatase 62 D Total Creatine Kinase 1554 H D Total Protein 5.5 L Albumin 3.2 L Globulin 2.3 Albumin/Globulin Ratio 1.4 Quality Measures Quality Measures sepsis Current suspected stage: ruled out Possible source: unknown Blood cultures ordered: yes Antibiotic ordered: Yes Advance care planning discussed with:: patient and other (niece) Assessment & Plan Assessment Current Active Medications: Generic Name Dose Route Start Last Admin Trade Name Freq PRN Reason Stop Dose Admin Acetaminophen 650 mg 12/16/24 13:06 12/16/24 14:18 Acetaminophen 325 Mg Tablet PO 01/15/25 13:05 650 mg Q6H PRN Administration Fever >100.3 Apixaban 2.5 mg 12/20/24 09:00 12/20/24 09:19 Apixaban 2.5 Mg Tablet PO 01/19/25 08:59 2.5 mg BID MIHAELA Administration Bisacodyl 10 mg 12/16/24 13:06 Bisacodyl 10 Mg Supp [place] 01/15/25 13:05 QDAY PRN Constipation Protocol Metoprolol Succinate 25 mg 12/18/24 09:45 12/20/24 09:18 Metoprolol Succinate Xl 25 Mg Tabcr PO 01/17/25 09:44 25 mg QDAY MIHAELA Administration Prochlorperazine Maleate 10 mg 12/16/24 13:06 Prochlorperazine Maleate 5 Mg Tablet PO 01/15/25 13:05 Q6H PRN NAUSEA OR VOMITING Tamsulosin HCl 0.4 mg 12/17/24 15:15 12/20/24 09:18 Tamsulosin Hcl 0.4 Mg Capsule PO 01/16/25 15:14 0.4 mg QDAY MIHAELA Administration Plan Macy Chen is an 79-y/o male with no significant PMHx except for possible CVA with no residual deficits was brought to ED for further evaluation of generalized weakness and fever. Apparently has been doing well until night before admission and overnight went to bathroom and fell down after twisting his ankle. Denies LOC/syncope. Found on bed with involuntary defecation and urination, which has not happened before. Since morning he?s had severe lower body pains, diarrhea and questionable subjective fever and so was brought to ED. Denies chest discomfort, SOB, orthopnea, PND, palpitations, leg swelling, or N/V, fever or chills. Endorses right flank pain as per the niece who is at the bedside. At baseline, he does not need a walker and is ADL independent but IADL dependent. Lives with daughter, son-in-law, and niece helps him from time to time. Cardiology was consulted for further evaluation of possible new onset a-fib. #A-fib with RVR, persistent versus paroxysmal, rate controlled EKG showed afib with 94 bpm, poor quality due to artifact. Had a-fib on telemonitor with rate going up into 130s at times, likely secondary to underlying sepsis. Denying CP, palpitations, SOB, or dizziness. No known cardiac disease but questionable history of previous stroke, though no official diagnosis and not on any medications. TTE 12/16: Normal LV size and function, EF 55 to 60%, diastolic dysfunction present but cannot be graded due to A-fib. RVSP 42 mmHg, moderate TR, normal RV size and function. Moderate LA dilatation, mild RA dilatation. Mild to moderate MR, mild MAC, mild AV sclerosis without stenosis, mild to moderate TR. Recommend anticoagulation due [id number] score of 2-4 ? Recommend to increase metoprolol succinate to 50 mg p.o. daily, though agitation as factor to increased heart rate noted ? Continue heparin drip as seen fit by primary team ? Once ready to transition to p.o. anticoagulation recommend Eliquis 2.5 mg p.o. twice daily given age and weight ? Keep Mg > 2 and K > 4 #Sepsis with unclear source #Acute kidney injury versus acute on chronic kidney disease stage III #Rhabdomyolysis #Transaminitis #Fall #Chronic normocytic anemia ? Management above medical conditions as per primary team and other consultants ----- Plan discussed with attending physician Dr. Gibson Torres MD PGY-1 Internal Medicine Attending Provider Attestation/Addendum I have personally seen and examined the patient separately on the above date of service and discussed the plan of care with the resident. I reviewed the resident Dr. Memo Torres consultation progress note and agree with the resident findings and plan in the note above and have also edited the documentation to reflect my findings and plan. Bon Arreaga M.D. Interventional Cardiology
[2024-12-20 12:25] LABS: Partial Thromboplastin Time 49.8 Seconds (22.0-36.0)
[2024-12-20] MEDS: FERRIC SOD GLUC INJ 125 MG in SODIUM CHLORIDE 0.9% 100 ML 110 MG IV (13:03)
--- NOTE | 2024-12-20 15:50 | PD.RESPRO ---
Documentation for date of: 12/20/24 Subjective Subjective Interval history: Patient is seen and examined at bedside. Overnight, patient became agitated and received 1 dose of melatonin 6 mg, Seroquel and patient was on mittens overnight Patient's niece is at the bedside and reported that patient is not able to recognize her and is not oriented to the place Vitals are stable. On physical examination, patient still appears mildly confused and wheeze heard bilaterally Ordered albuterol nebulization and chest x-ray A dose of Seroquel is given and heparin drip stopped, started on Eliquis 2.5 Mg twice daily Labs showed stable hemoglobin, downtrending creatinine, liver enzymes and creatinine kinase As patient is able to tolerate oral diet, stop fluids Will reevaluate his mental status tomorrow and if patient gets improved, plan to discharge tomorrow Exam Vital Signs Temp Pulse Resp BP Pulse Ox O2 Del Method O2 Flow Rate 97.3 F 96 16 148/92 H 100 Room Air 3 12/20/24 11:39 12/20/24 12:00 12/20/24 11:39 12/20/24 11:39 12/20/24 11:39 12/20/24 11:39 12/19/24 19:36 Narrative Exam General: Awake. Fragile. mildly agitated HEENT: Normocephalic, atraumatic, mucous membranes moist. Heart: Irregular rate and rhythm, pansystolic murmur heard at tricuspid area Lungs: Clear to auscultation with no wheezing or crackles. Abdomen: Soft, nondistended, nontender, positive bowel sounds. ?No guarding or rebound tenderness. Neurologic: no gross neurological deficit, and patient able to move all 4 extremities. Extremities: No edema. Skin: No rash or ecchymoses. Objective Labs 12/20/24 03:55 12/20/24 03:55 Labs: Laboratory Results - last 24 hr 12/19/24 12/19/24 12/20/24 15:10 20:19 03:55 WBC 7.9 RBC 4.30 L Hgb 9.0 L Hct 26.5 L MCV 62 L MCH 20.9 L MCHC 34.0 RDW Std Deviation 31.8 L Plt Count 163 D Neut % (Auto) 62 Lymph % (Auto) 20 [place] % (Auto) 14 H Eos % (Auto) 2 Baso % (Auto) 1 Neut # (Auto) 4.9 Lymph # (Auto) 1.6 [place] # (Auto) 1.1 H Eos # (Auto) 0.1 Baso # (Auto) 0.0 Immature Gran # (Auto) 0.14 H Absolute Nucleated RBC 0.00 Immature Gran % 2 H Nucleated RBC % 0 APTT 47.0 H D 34.7 D 115.2 H* D Sodium 136 Potassium 4.1 D Chloride 108 H Carbon Dioxide 19.7 L Anion Gap 8 BUN 13 Creatinine 1.0 Estim Creat Clear Calc 49.0 L eGFR > 60 BUN/Creatinine Ratio 13 Glucose 103 Calculated Osmolality 272 L Calcium 7.6 L Corrected Calcium 8.2 L Magnesium 2.2 Total Bilirubin 0.7 AST 115 H ALT 54 H Alkaline Phosphatase 62 D Total Creatine Kinase 1554 H D Total Protein 5.5 L Albumin 3.2 L Globulin 2.3 Albumin/Globulin Ratio 1.4 12/20/24 11:48 WBC RBC Hgb Hct MCV MCH MCHC RDW Std Deviation Plt Count Neut % (Auto) Lymph % (Auto) [place] % (Auto) Eos % (Auto) Baso % (Auto) Neut # (Auto) Lymph # (Auto) [place] # (Auto) Eos # (Auto) Baso # (Auto) Immature Gran # (Auto) Absolute Nucleated RBC Immature Gran % Nucleated RBC % APTT 49.8 H D Sodium Potassium Chloride Carbon Dioxide Anion Gap BUN Creatinine Estim Creat Clear Calc eGFR BUN/Creatinine Ratio Glucose Calculated Osmolality Calcium Corrected Calcium Magnesium Total Bilirubin AST ALT Alkaline Phosphatase Total Creatine Kinase Total Protein Albumin Globulin Albumin/Globulin Ratio Quality Measures Quality Measures sepsis Current suspected stage: ruled out Possible source: unknown Blood cultures ordered: yes Antibiotic ordered: No Advance care planning discussed with:: patient Assessment & Plan Assessment Current Active Medications: Generic Name Dose Route Start Last Admin Trade Name Freq PRN Reason Stop Dose Admin Acetaminophen 650 mg 12/16/24 13:06 12/16/24 14:18 Acetaminophen 325 Mg Tablet PO 01/15/25 13:05 650 mg Q6H PRN Administration Fever >100.3 Apixaban 2.5 mg 12/20/24 09:00 12/20/24 09:19 Apixaban 2.5 Mg Tablet PO 01/19/25 08:59 2.5 mg BID MIHAELA Administration Bisacodyl 10 mg 12/16/24 13:06 Bisacodyl 10 Mg Supp [place] 01/15/25 13:05 QDAY PRN Constipation Protocol Ferric Sodium Gluconate 125 mg 110 mls @ 110 mls/hr 12/21/24 09:00 / Sodium Chloride IV 12/21/24 09:59 X1 ONE Protocol Levalbuterol HCl 0.31 mg 12/20/24 15:46 Levalbuterol Rt 0.31 Mg/3 Ml Nebu INH 01/19/25 15:45 Q8HR PRN WHEEZING Metoprolol Succinate 25 mg 12/18/24 09:45 12/20/24 09:18 Metoprolol Succinate Xl 25 Mg Tabcr PO 01/17/25 09:44 25 mg QDAY MIHAELA Administration Prochlorperazine Maleate 10 mg 12/16/24 13:06 Prochlorperazine Maleate 5 Mg Tablet PO 01/15/25 13:05 Q6H PRN NAUSEA OR VOMITING Tamsulosin HCl 0.4 mg 12/17/24 15:15 12/20/24 09:18 Tamsulosin Hcl 0.4 Mg Capsule PO 01/16/25 15:14 0.4 mg QDAY MIHAELA Administration Vitamin B Complex/Vit C/Folic Acid 1 tab 12/21/24 09:00 Vit B12/Vit C/Fa (Nephrovite) Tablet PO 01/20/25 08:59 QDAY MIHAELA Plan A 79-year-old ilocano speaking patient with past medical history of CVA, but not on any medication was brought to the hospital by his niece with chief complaints of generalized weakness since 1 day and admitted for suspicion of sepsis #Fever, resolved #likely 2/2 Rhabdomyolysis vs Gastroenteritis - Brought to the hospital with the chief complaints of involuntary defecation and urination which is unusual for the patient - Also c/o severe body pains, but not able to localise the location - In the ED, patient vitals are stable except for temp of 100.6F, other vitals are stable - Labs are significant for hb 10.8, PLT 125, Sodium 130, Lactate 3, procal 5.07 - EKG showed afib with CVR. Chest x Ray did not show any filtrates - US Abdomen did not show any significant pathology - C. difficile came back negative - Blood cultures and stool studies sent - negative Plan -Received 2L bolus in the ED. 2 boluses of 500ml are given later -Zosyn started ( 12/16 - 12/19) -Encouraged to take plenty of oral fluids #Afib - New onset vs paroxysmal vs persistent -Patient was found to have afib on routine EKG -Not sure if patient had previous afib as patient does not have previous history and not following any PCP -Echo showed Normal LV size and function. Estimated EF of 55 to 60%. Diastolic dysfunction present but cannot be graded secondary to A-fib Normal RV size and function. RVSP of 42 mmHg. Moderate TR Plan -Patient initially found to have RVR for which metoprolol 25mg is given -Started on metoprolol 25 Mg, will monitor blood pressures and heart rate, titrate medications accordingly -As patient is having [id number] of 2, started on heparin drip, stopped -Changed to eliquis 2.5mg BID #CHRISTOPHER, resolved #Rhabdomyolysis, resolving -Creatinine at the time of admission is 1.6, improved to 1.0 today -[place] [address], improved [place] 1554 today -Baseline creatinine is not available -Urinalysis showed 1+ proteinuria Plan -will monitor RFT -Avoid nephrotoxic medications and renally dose the medications # Hypokalemia, resolved # Non-anion gap metabolic acidosis, resolving -Potassium as of 12/20/2024 is 4.1, bicarb is 19.7 -likely due to CHRISTOPHER and diarrhea, whicj resolved now Plan -Will monitor electrolytes and replace accordingly # Transaminitis, resolving -Patient was found to have elevated ALT and AST at the time of admission -ALT is 54, AST is 115 -Likely due to acute illness -Will trend liver enzymes. #Lactic acidosis, resolved Likely due to diarrhea -Lactate at the time of admission is 3 and later improved to 1.8 after fluid bolus #Microcytic Hypochromic anemia - Hb at the time of admission is 10.8, MCV, MCH and MCHC is low -Stool for occult blood and iron panel is ordered -occult blood came back positive and found to have severe iron deficiency anemia -2 doses of Ferrlecit injection is given -Dr. Valentin was consulted, recommended upper GI endoscopy as of 12/19/2024 - no pathology noted on EGD, recommended colonoscopy on outpatient basis #Hyponatremia, resolved - Sodium at the time of admission is 130, improved to 136 today - will monitor electrolytes Hospital Maintenance: Dispo: tele DVT ppx: SCD GI ppx: protonix Diet: pureed IV lines:peripheral Code status:Full Patient plan of care was discussed with the attending physician, Dr. Don Diaz, PGY1 Attending Provider Attestation/Addendum I attest that I was physically present for the evaluation, physical examination, lab and imaging review of the patient with the residents. I discussed the case with the residents and agree with the findings and plans of care as documented above. Overnight, the family reported that patient has been having hallucinations.? He received Seroquel 25 overnight and 25 mg in the morning.? He also appears confused to them.? At bedside today, patient appears comfortable.? He seems to be looking over wall and ceiling.? But has been calm and able to follow commands.? Vital signs are stable, heart rate has been well-controlled, saturating well on room air.? Hemoglobin continues to be stable.? Potassium level have improved to 4.1 today from 3.2 yesterday.? Kidney function continues to improve, 13/1.0 today.? Creatinine kinase level has also been consistently going down.? Advanced patient's diet to dysphagia 1 this afternoon.? As per the family, patient eats regular food at home, we will further advance his diet to mechanically altered in the evening.? Also started iron tablets for iron deficiency.? Patient underwent EGD with GI, found to have esophagitis and gastritis without active bleeding.? Recommended to follow-up outpatient GI for colonoscopy.? Resumed Eliquis 2.5 twice daily.? Family at bedside updated about patient's current condition and further management plans, advised to have a family member around patient and frequent reorientation for likely hospital delirium. Anish Ochoa MD
--- NOTE | 2024-12-20 16:10 | PC.SS ---
PRINCIPAL PRODUCT MANAGER informed by PT staff recommendation for SNF placement. PRINCIPAL PRODUCT MANAGER met with patient's family at bedside. Patient's niece, Joy Zhang; confirmed plan to transition patient to SNF upon discharge. Preferred SNF is [facility]. If facility does not possess available male bed, receptive to local [facility] SNF's. Patient does not possess a history of mental health.
--- NOTE | 2024-12-20 17:15 | PC.SS ---
PASSR completed. Patient meets level II criteria. PASSR follow up pending.
--- NOTE | 2024-12-20 17:24 | PC.SS ---
SNF referral submitted on [facility]. Awaiting responses. Preferred SNF is [facility].
[2024-12-20 18:27] LABS: Vitamin D 25 Hydroxy Total 19.3 ng/mL (7.3-40.2)
--- NOTE | 2024-12-20 20:24 | PD.IMPROG ---
Documentation for date of: 12/20/24 Subjective Subjective Interval history: Patient evaluated upper endoscopy revealed gastritis and esophagitis I had spoken with her daughter He is too fragile at the moment outpatient colonoscopy will be performed diet was advanced Exam Vital Signs Temp Pulse Resp BP Pulse Ox O2 Del Method O2 Flow Rate 96.7 F L 100 20 101/61 97 Room Air 3 12/20/24 16:00 12/20/24 16:00 12/20/24 16:00 12/20/24 16:00 12/20/24 16:00 12/20/24 16:00 12/19/24 19:36 Objective Labs 12/20/24 03:55 12/20/24 03:55 Labs: Laboratory Results - last 24 hr 12/19/24 12/20/24 12/20/24 20:19 03:55 11:48 WBC 7.9 RBC 4.30 L Hgb 9.0 L Hct 26.5 L MCV 62 L MCH 20.9 L MCHC 34.0 RDW Std Deviation 31.8 L Plt Count 163 D Neut % (Auto) 62 Lymph % (Auto) 20 [place] % (Auto) 14 H Eos % (Auto) 2 Baso % (Auto) 1 Neut # (Auto) 4.9 Lymph # (Auto) 1.6 [place] # (Auto) 1.1 H Eos # (Auto) 0.1 Baso # (Auto) 0.0 Immature Gran # (Auto) 0.14 H Absolute Nucleated RBC 0.00 Immature Gran % 2 H Nucleated RBC % 0 APTT 34.7 D 115.2 H* D 49.8 H D Sodium 136 Potassium 4.1 D Chloride 108 H Carbon Dioxide 19.7 L Anion Gap 8 BUN 13 Creatinine 1.0 Estim Creat Clear Calc 49.0 L eGFR > 60 BUN/Creatinine Ratio 13 Glucose 103 Calculated Osmolality 272 L Calcium 7.6 L Corrected Calcium 8.2 L Magnesium 2.2 Total Bilirubin 0.7 AST 115 H ALT 54 H Alkaline Phosphatase 62 D Total Creatine Kinase 1554 H D Total Protein 5.5 L Albumin 3.2 L Globulin 2.3 Albumin/Globulin Ratio 1.4 25-OH Vitamin D Total 12/20/24 17:26 WBC RBC Hgb Hct MCV MCH MCHC RDW Std Deviation Plt Count Neut % (Auto) Lymph % (Auto) [place] % (Auto) Eos % (Auto) Baso % (Auto) Neut # (Auto) Lymph # (Auto) [place] # (Auto) Eos # (Auto) Baso # (Auto) Immature Gran # (Auto) Absolute Nucleated RBC Immature Gran % Nucleated RBC % APTT Sodium Potassium Chloride Carbon Dioxide Anion Gap BUN Creatinine Estim Creat Clear Calc eGFR BUN/Creatinine Ratio Glucose Calculated Osmolality Calcium Corrected Calcium Magnesium Total Bilirubin AST ALT Alkaline Phosphatase Total Creatine Kinase Total Protein Albumin Globulin Albumin/Globulin Ratio 25-OH Vitamin D Total 19.3 Impressions Impression: Anemia blood loss Gastritis Esophagitis Continue current management Assessment & Plan A&P Narrative # FOBT positive # iron deficiency anemia Patient has other pressing issues at the moment I will avoid scheduling any invasive GI workup till her general medical condition improves Will follow the patient Other medical problems include Rhabdomyolysis LFTs improving most likely hypoxic hepatitis On heparin drip Thank you very much for the opportunity to participate in the care of this patient Time Spent With Patient Time: Total time spent is greater than 50% in coordination of care (as documented) at patient's floor/unit and/or counseling patient:
[2024-12-21] VITALS (11 sets, daily range): BP systolic 102–123; BP diastolic 53–78; PULSE 80–129; RESP 14–22; TEMP 36.1–37.2; O2SAT 94–99; BMI 20.7; BMI 12.0
--- NOTE | 2024-12-21 00:23 | XR_ITS ---
Examination: AP chest single view Technique one AP portable semiupright chest single view Exam date and time: December 21, 2024 0034 hrs. Comparison December 20, 2024 Indications: Fluid overload shortness of breath Findings: Mild enlargement cardiac contour Moderate vascular congestion No lobar pneumonia Prominent osteopenia Impression: Moderate vascular congestion
[2024-12-21] MEDS: Magnesium Sulfate 2 GM Ivpb 2 GM/50 ML BAG IV (01:13)
[2024-12-21 05:58] LABS: Eosinophils % (Auto) 2 % (0-10)
[2024-12-21 06:00] LABS: Basophils % (Auto) 0 % (0-2.5); Eosinophils # (Auto) 0.2 Thou/mm3 (0.0-0.5); Hematocrit 25.5 % (41.0-53.0); Immature Granulocytes % (Auto) 3 % (0-0); Immature Granulocytes Auto 0.19 Thou/mm3 (0.00-0.00); Lymphocytes # (Auto) 1.1 Thou/mm3 (1.0-4.8); Lymphocytes % (Auto) 15 % (10-50); Mean Corpuscular HGB Conc 34.1 g/dl (31.0-37.0); Mean Corpuscular Hemoglobin 20.9 pg (25.0-35.0); Mean Corpuscular Volume 61 fL (80-100); Monocytes # (Auto) 1.2 Thou/mm3 (0.0-0.8); Monocytes % (Auto) 16 % (0-12); Neutrophils # (Auto) 4.7 Thou/mm3 (1.8-7.7); Neutrophils % (Auto) 64 % (37-80); Nucleated Red Blood Cell # 0.05 Thou/mm3 (0.00-0.00); Nucleated Red Blood Cell % 1 /100 WBC (0); Platelet Count 144 Thou/mm3 (140-440); RDW Standard Deviation 30.8 fL (35.1-43.9); Red Blood Count 4.16 Miln/mm3 (4.50-5.90); White Blood Count 7.4 Thou/mm3 (3.8-10.6)
[2024-12-21 06:16] LABS: Hemoglobin 8.7 g/dL (13.5-16.0)
[2024-12-21 06:27] LABS: Alanine Aminotransferase 49 U/L (10-49); Albumin, Serum 3.1 gm/dL (3.4-4.8); Albumin/Globulin Ratio 1.3 (1.2-2.2); Alkaline Phosphatase 60 U/L (46-116); Anion Gap 10 (7-16); Aspartate Amino Transferase 87 U/L (0-34); BUN/Creatinine Ratio 9 Ratio (12-20); Blood Urea Nitrogen 9 mg/dL (9-23); Calcium (Corrected) 8.7 mg/dL (8.5-10.1); Carbon Dioxide 21.8 mMol/L (20.0-31.0); Chloride 111 mMol/L (98-107); Creatine Kinase 1132 U/L (34-171); Estimated Creatinine Clearance 47.9 mL/min (>60); Globulin 2.4 gm/dL (2.3-3.5); Glucose 87 mg/dL (74-106); Magnesium 2.2 mg/dL (1.6-2.6); Osmolality,Calculated 282 (275-295); Potassium 3.5 mMol/L (3.4-5.1); Sodium 143 mMol/L (136-145); Total Protein 5.5 gm/dL (5.7-8.2); eGFR > 60 See Note
[2024-12-21] MEDS: TAMSULOSIN HCL 0.4 MG CAPSULE PO (08:07)
[2024-12-21] MEDS: VIT B12/Vit C/FA (Nephrovite) TABLET 1 TAB PO (08:07)
[2024-12-21] MEDS: METOPROLOL SUCCINATE XL 25 MG TABCR PO (08:07)
[2024-12-21] MEDS: APIXABAN 2.5 MG TABLET PO ×2 (08:07→20:49)
[2024-12-21] MEDS: POTASSIUM CHLORIDE 20 mEq TABCR 40 MEQ PO (08:10)
--- NOTE | 2024-12-21 10:14 | PC.NURSE ---
notified Dr. Llanos that family member expressed concerns re: possible stroke last night because his speech is garbled
[2024-12-21] MEDS: FERRIC SOD GLUC INJ 125 MG in SODIUM CHLORIDE 0.9% 100 ML 110 MG IV (10:16)
--- NOTE | 2024-12-21 10:35 | PD.RESPRO ---
Documentation for date of: 12/21/24 Subjective Subjective Interval history: No acute overnight events. Patient seen and examined at bedside but was asleep and difficult to arouse as he was not able to get much sleep the night prior. Otherwise, his heart rate has had episodes of spiking in 120s in the morning, but mostly remains in 80s-90s. Labs reviewed and K 3.5, Mg 2.2 and repleted by primary team. Otherwise, unremarkable and his creatinine kinase continues to downtrend. Currently on metoprolol succinate 25 mg p.o. daily for atrial fibrillation and started on Eliquis 2.5 mg p.o. twice daily given age and weight. Uptitrate to metoprolol succinate 50 mg once daily if blood pressure is permissible. Aggressively replace potassium to keep it greater than 4 and magnesium greater than 2.0 at all times Exam Vital Signs Temp Pulse Resp BP Pulse Ox O2 Del Method O2 Flow Rate 98.2 F 89 14 123/53 L 97 Room Air 3 12/21/24 08:00 12/21/24 09:50 12/21/24 08:00 12/21/24 08:07 12/21/24 08:00 12/21/24 08:00 12/19/24 19:36 Narrative Exam General: somnolent, did not open eyes to voice HEENT: poor dentition, NC/AT, mucous membranes moist, bilateral sclera anicteric Cardiovascular: irregular rhythm, regular rate, S1/S2 present, no murmurs appreciated Pulmonary: clear to auscultation bilaterally, no rales/rhonchi/wheezes Abdominal: soft, non-tender, non-distended, no rebound/guarding, normal bowel sounds present Musculoskeletal: normal ROM, no peripheral edema Skin: warm and dry, intact, no rashes Neuro: unable to assess Objective Labs 12/21/24 04:53 12/21/24 04:53 Labs: Laboratory Results - last 24 hr 12/20/24 12/20/24 12/21/24 11:48 17:26 04:53 WBC 7.4 RBC 4.16 L Hgb 8.7 L Hct 25.5 L MCV 61 L MCH 20.9 L MCHC 34.1 RDW Std Deviation 30.8 L Plt Count 144 Neut % (Auto) 64 Lymph % (Auto) 15 [place] % (Auto) 16 H Eos % (Auto) 2 Baso % (Auto) 0 Neut # (Auto) 4.7 Lymph # (Auto) 1.1 [place] # (Auto) 1.2 H Eos # (Auto) 0.2 Baso # (Auto) 0.0 Immature Gran # (Auto) 0.19 H Absolute Nucleated RBC 0.05 H Immature Gran % 3 H Nucleated RBC % 1 H APTT 49.8 H D Sodium 143 Potassium 3.5 D Chloride 111 H Carbon Dioxide 21.8 Anion Gap 10 BUN 9 Creatinine 1.0 Estim Creat Clear Calc 47.9 L eGFR > 60 BUN/Creatinine Ratio 9 L Glucose 87 Calculated Osmolality 282 Calcium 8.0 L Corrected Calcium 8.7 Magnesium 2.2 Total Bilirubin 1.0 AST 87 H ALT 49 Alkaline Phosphatase 60 Total Creatine Kinase 1132 H D Total Protein 5.5 L Albumin 3.1 L Globulin 2.4 Albumin/Globulin Ratio 1.3 25-OH Vitamin D Total 19.3 Quality Measures Quality Measures sepsis Current suspected stage: ruled out Possible source: unknown Blood cultures ordered: yes Antibiotic ordered: No Advance care planning discussed with:: patient and other Assessment & Plan Assessment Current Active Medications: Generic Name Dose Route Start Last Admin Trade Name Freq PRN Reason Stop Dose Admin Acetaminophen 650 mg 12/16/24 13:06 12/16/24 14:18 Acetaminophen 325 Mg Tablet PO 01/15/25 13:05 650 mg Q6H PRN Administration Fever >100.3 Apixaban 2.5 mg 12/20/24 09:00 12/21/24 08:07 Apixaban 2.5 Mg Tablet PO 01/19/25 08:59 2.5 mg BID MIHAELA Administration Bisacodyl 10 mg 12/16/24 13:06 Bisacodyl 10 Mg Supp [place] 01/15/25 13:05 QDAY PRN Constipation Protocol Levalbuterol HCl 0.31 mg 12/20/24 15:46 Levalbuterol Rt 0.31 Mg/3 Ml Nebu INH 01/19/25 15:45 Q8HR PRN WHEEZING Metoprolol Succinate 25 mg 12/18/24 09:45 12/21/24 08:07 Metoprolol Succinate Xl 25 Mg Tabcr PO 01/17/25 09:44 25 mg QDAY MIHAELA Administration Prochlorperazine Maleate 10 mg 12/16/24 13:06 Prochlorperazine Maleate 5 Mg Tablet PO 01/15/25 13:05 Q6H PRN NAUSEA OR VOMITING Tamsulosin HCl 0.4 mg 12/17/24 15:15 12/21/24 08:07 Tamsulosin Hcl 0.4 Mg Capsule PO 01/16/25 15:14 0.4 mg QDAY [facility] Administration Vitamin B Complex/Vit C/Folic Acid 1 tab 12/21/24 09:00 12/21/24 08:07 Vit B12/Vit C/Fa (Nephrovite) Tablet PO 01/20/25 08:59 1 tab QDAY [facility] Administration Plan Macy Chen is an 79-y/o male with no significant PMHx except for possible CVA with no residual deficits was brought to ED for further evaluation of generalized weakness and fever. Apparently has been doing well until night before admission and overnight went to bathroom and fell down after twisting his ankle. Denies LOC/syncope. Found on bed with involuntary defecation and urination, which has not happened before. Since morning he?s had severe lower body pains, diarrhea and questionable subjective fever and so was brought to ED. Denies chest discomfort, SOB, orthopnea, PND, palpitations, leg swelling, or N/V, fever or chills. Endorses right flank pain as per the niece who is at the bedside. At baseline, he does not need a walker and is ADL independent but IADL dependent. Lives with daughter, son-in-law, and niece helps him from time to time. Cardiology was consulted for further evaluation of possible new onset a-fib. #A-fib with RVR, persistent versus paroxysmal, rate controlled EKG showed afib with 94 bpm, poor quality due to artifact. Had a-fib on telemonitor with rate going up into 130s at times, likely secondary to underlying sepsis. Denying CP, palpitations, SOB, or dizziness. No known cardiac disease but questionable history of previous stroke, though no official diagnosis and not on any medications. TTE 12/16: Normal LV size and function, EF 55 to 60%, diastolic dysfunction present but cannot be graded due to A-fib. RVSP 42 mmHg, moderate TR, normal RV size and function. Moderate LA dilatation, mild RA dilatation. Mild to moderate MR, mild MAC, mild AV sclerosis without stenosis, mild to moderate TR. Recommend anticoagulation due [id number] score of 2-4 ? Currently on metoprolol 25 mg PO daily, uptitrate as needed if BP permits ? Eliquis 2.5 mg p.o. twice daily given age and weight ? Keep Mg > 2 and K > 4 - Uptitrate to metoprolol succinate 50 mg once daily if blood pressure is permissible. Aggressively replace potassium to keep it greater than 4 and magnesium greater than 2.0 at all times #Sepsis with unclear source #Acute kidney injury versus acute on chronic kidney disease stage III #Rhabdomyolysis #Transaminitis #Fall #Chronic normocytic anemia ? Management above medical conditions as per primary team and other consultants ----- Plan discussed with attending physician Dr. Gibson Torres MD PGY-1 Internal Medicine Attending Provider Attestation/Addendum I have personally seen and examined the patient separately on the above date of service and discussed the plan of care with the resident. I reviewed the resident Dr. Memo Torres consultation progress note and agree with the resident findings and plan in the note above and have also edited the documentation to reflect my findings and plan. Bon Arreaga M.D. Interventional Cardiology
--- NOTE | 2024-12-21 11:22 | PC.SS ---
APPAREL STOCK CHECKER conducted follow up with PASSR staff, Moses Mancilla. Patient's level II PASSR to be closed. On line closure is pending.
--- NOTE | 2024-12-21 12:14 | PC.SS ---
GIS ANALYST confirmed with bedside nurse that Seroquel has been discontinued for the patient. SNF staff to conduct bedside visit with the patient.
--- NOTE | 2024-12-21 12:20 | PC.SS ---
Patient had restraints removed at 09:30 am today. Patient will need to be off of restraints for 24 hours prior to SNF placement.
--- NOTE | 2024-12-21 13:18 | PC.SS ---
PASSR closed on line. PASSR submitted on File Exchange to [facility]. Authorization for placement pending.
[2024-12-21] MEDS: LEVALBUTEROL RT 0.31 MG/3 ML NEBU INH (13:39)
--- NOTE | 2024-12-21 14:42 | ESPR_ITS ---
<Statement entered by Shane Mcdonald MD - 12/22/24 13:29> Senior Resident Attestation: I supervised/discussed management plan with employee communications intern physician Dr. Diaz, and was involved in the care of this patient. I personally saw and examined the patient and discussed the assessment and plan with the entire medicine team, including my attending. I agree with the assessment and plan as documented. Patient's care was discussed with attending physician, Dr. Ochoa. Shane Mcdonald MD PGY-2. Documentation for date of: 12/21/24 Subjective Subjective Interval history: Patient is seen and examined bedside Overnight, patient is mildly agitated and received Seroquel and placed on restraints On examination today, patient is mild drowsy but able to answer all questions appropriately Vitals are stable. Labs showed hemoglobin 8.7, total CK11 32 Found to be deficient in vitamin D, will add vitamin D on discharge Pending discharge to SNF tomorrow Exam Vital Signs Temp Pulse Resp BP Pulse Ox O2 Del Method O2 Flow Rate 98.9 F 89 18 113/78 98 Room Air 3 12/21/24 12:00 12/21/24 13:40 12/21/24 13:40 12/21/24 12:00 12/21/24 13:40 12/21/24 12:00 12/19/24 19:36 Narrative Exam General: Awake. Fragile. Drowsy HEENT: Normocephalic, atraumatic, mucous membranes moist. Heart: Irregular rate and rhythm, pansystolic murmur heard at tricuspid area Lungs: Clear to auscultation with no wheezing or crackles. Abdomen: Soft, nondistended, nontender, positive bowel sounds. ?No guarding or rebound tenderness. Neurologic: no gross neurological deficit, and patient able to move all 4 extremities. Extremities: No edema. Skin: No rash or ecchymoses. Objective Labs 12/22/24 04:54 12/22/24 04:54 Labs: Laboratory Results - last 24 hr 12/20/24 12/21/24 17:26 04:53 WBC 7.4 RBC 4.16 L Hgb 8.7 L Hct 25.5 L MCV 61 L MCH 20.9 L MCHC 34.1 RDW Std Deviation 30.8 L Plt Count 144 Neut % (Auto) 64 Lymph % (Auto) 15 [place] % (Auto) 16 H Eos % (Auto) 2 Baso % (Auto) 0 Neut # (Auto) 4.7 Lymph # (Auto) 1.1 [place] # (Auto) 1.2 H Eos # (Auto) 0.2 Baso # (Auto) 0.0 Immature Gran # (Auto) 0.19 H Absolute Nucleated RBC 0.05 H Immature Gran % 3 H Nucleated RBC % 1 H Sodium 143 Potassium 3.5 D Chloride 111 H Carbon Dioxide 21.8 Anion Gap 10 BUN 9 Creatinine 1.0 Estim Creat Clear Calc 47.9 L eGFR > 60 BUN/Creatinine Ratio 9 L Glucose 87 Calculated Osmolality 282 Calcium 8.0 L Corrected Calcium 8.7 Magnesium 2.2 Total Bilirubin 1.0 AST 87 H ALT 49 Alkaline Phosphatase 60 Total Creatine Kinase 1132 H D Total Protein 5.5 L Albumin 3.1 L Globulin 2.4 Albumin/Globulin Ratio 1.3 25-OH Vitamin D Total 19.3 Quality Measures Quality Measures sepsis Current suspected stage: ruled out Possible source: unknown Blood cultures ordered: yes Antibiotic ordered: No Advance care planning discussed with:: patient Assessment & Plan Assessment Current Active Medications: Generic Name Dose Route Start Last Admin Trade Name Freq PRN Reason Stop Dose Admin Acetaminophen 650 mg 12/16/24 13:06 12/16/24 14:18 Acetaminophen 325 Mg Tablet PO 01/15/25 13:05 650 mg Q6H PRN Administration Fever >100.3 Apixaban 2.5 mg 12/20/24 09:00 12/21/24 08:07 Apixaban 2.5 Mg Tablet PO 01/19/25 08:59 2.5 mg BID MIHAELA Administration Bisacodyl 10 mg 12/16/24 13:06 Bisacodyl 10 Mg Supp [place] 01/15/25 13:05 QDAY PRN Constipation Protocol Levalbuterol HCl 0.31 mg 12/20/24 15:46 12/21/24 13:39 Levalbuterol Rt 0.31 Mg/3 Ml Nebu INH 01/19/25 15:45 0.31 mg Q8HR PRN Administration WHEEZING Metoprolol Succinate 25 mg 12/18/24 09:45 12/21/24 08:07 Metoprolol Succinate Xl 25 Mg Tabcr PO 01/17/25 09:44 25 mg QDAY MIHAELA Administration Prochlorperazine Maleate 10 mg 12/16/24 13:06 Prochlorperazine Maleate 5 Mg Tablet PO 01/15/25 13:05 Q6H PRN NAUSEA OR VOMITING Tamsulosin HCl 0.4 mg 12/17/24 15:15 12/21/24 08:07 Tamsulosin Hcl 0.4 Mg Capsule PO 01/16/25 15:14 0.4 mg QDAY MIHAELA Administration Vitamin B Complex/Vit C/Folic Acid 1 tab 12/21/24 09:00 12/21/24 08:07 Vit B12/Vit C/Fa (Nephrovite) Tablet PO 01/20/25 08:59 1 tab QDAY MIHAELA Administration Plan A 79-year-old ilocano speaking patient with past medical history of CVA, but not on any medication was brought to the hospital by his niece with chief complaints of generalized weakness since 1 day and admitted for suspicion of sepsis # Delirium, likely hospital induced -Patient is agitated since yesterday -Patient received doses of Seroquel and placed on restraints last night Plan -Benadryl as needed -Will try to reorient him -Pending discharge tomorrow to SNF #Fever, resolved #likely 2/2 Rhabdomyolysis vs Gastroenteritis - Brought to the hospital with the chief complaints of involuntary defecation and urination which is unusual for the patient - Also c/o severe body pains, but not able to localise the location - In the ED, patient vitals are stable except for temp of 100.6F, other vitals are stable - Labs are significant for hb 10.8, PLT 125, Sodium 130, Lactate 3, procal 5.07 - EKG showed afib with CVR. Chest x Ray did not show any filtrates - US Abdomen did not show any significant pathology - C. difficile came back negative - Blood cultures and stool studies sent - negative Plan -Received 2L bolus in the ED. 2 boluses of 500ml are given later -Zosyn started ( 12/16 - 12/19) -Encouraged to take plenty of oral fluids #Afib - New onset vs paroxysmal vs persistent -Patient was found to have afib on routine EKG -Not sure if patient had previous afib as patient does not have previous history and not following any PCP -Echo showed Normal LV size and function. Estimated EF of 55 to 60%. Diastolic dysfunction present but cannot be graded secondary to A-fib Normal RV size and function. RVSP of 42 mmHg. Moderate TR Plan -Patient initially found to have RVR for which metoprolol 25mg is given -Started on metoprolol 25 Mg, will monitor blood pressures and heart rate, titrate medications accordingly -As patient is having [id number] of 2, started on heparin drip, stopped -Changed to eliquis 2.5mg BID #CHRISTOPHER, resolved #Rhabdomyolysis, resolving -Creatinine at the time of admission is 1.6, improved to 1.0 today -[place] [address], improved to 1132 today -Baseline creatinine is not available -Urinalysis showed 1+ proteinuria Plan -will monitor RFT -Avoid nephrotoxic medications and renally dose the medications # Hypokalemia, resolved # Non-anion gap metabolic acidosis, resolved -Potassium as of 12/21/2024 is 3.5, bicarb is 21.8 -likely due to CHRISTOPHER and diarrhea, whicj resolved now Plan -40 mill equivalents of oral potassium is given -Will monitor electrolytes and replace accordingly # Transaminitis, resolving -Patient was found to have elevated ALT and AST at the time of admission -ALT is 49, AST is 87 -Likely due to acute illness -Will trend liver enzymes. #Lactic acidosis, resolved Likely due to diarrhea -Lactate at the time of admission is 3 and later improved to 1.8 after fluid bolus #Microcytic Hypochromic anemia - Hb at the time of admission is 10.8, MCV, MCH and MCHC is low -Stool for occult blood and iron panel is ordered -occult blood came back positive and found to have severe iron deficiency anemia -2 doses of Ferrlecit injection is given -Dr. Valentin was consulted, recommended upper GI endoscopy as of 12/19/2024 - no pathology noted on EGD, recommended colonoscopy on outpatient basis #Hyponatremia, resolved - Sodium at the time of admission is 130, improved to 136 today - will monitor electrolytes Hospital Maintenance: Dispo: tele DVT ppx: eliquis GI ppx: protonix Diet: Regular IV lines:peripheral Code status:Full Patient plan of care was discussed with the attending physician, Dr. Ochoa and senior resident Dr. Harry Diaz, [id number] mucous Attending Provider Attestation/Addendum I attest that I was physically present for the evaluation, physical examination, lab and imaging review of the patient with the residents. I discussed the case with the residents and agree with the findings and plans of care as documented above. This morning, at bedside patient appears sleepy but wakes up on calling.? Able to follow commands, answer questions when awake.? Patient has not been able to sleep well.? We will monitor him closely for his mental status.? Started on regular diet, tolerating well.? Repleted 40 mEq of potassium.? PT recommended SNF placement.? He was on restraints overnight due to agitation, we will wait for 24 hours before he can be discharged to the SNF. Anish Ochoa MD
--- NOTE | 2024-12-21 14:48 | PC.SS ---
Rounding Note: Plan is to d/c patient to SNF tomorrow.
[2024-12-21] MEDS: FERROUS SULF 325 MG TABLET PO (15:34)
--- NOTE | 2024-12-21 22:18 | PD.IMPROG ---
Documentation for date of: 12/21/24 Subjective Subjective Interval history: Hemoglobin hematocrit 8.7 and 25.5. Exam Vital Signs Temp Pulse Resp BP Pulse Ox O2 Del Method O2 Flow Rate 97.0 F 90 20 120/65 95 Room Air 3 12/21/24 20:00 12/21/24 20:00 12/21/24 20:00 12/21/24 20:00 12/21/24 20:00 12/21/24 20:00 12/19/24 19:36 Objective Labs 12/21/24 04:53 12/21/24 04:53 Labs: Laboratory Results - last 24 hr 12/21/24 04:53 WBC 7.4 RBC 4.16 L Hgb 8.7 L Hct 25.5 L MCV 61 L MCH 20.9 L MCHC 34.1 RDW Std Deviation 30.8 L Plt Count 144 Neut % (Auto) 64 Lymph % (Auto) 15 [place] % (Auto) 16 H Eos % (Auto) 2 Baso % (Auto) 0 Neut # (Auto) 4.7 Lymph # (Auto) 1.1 [place] # (Auto) 1.2 H Eos # (Auto) 0.2 Baso # (Auto) 0.0 Immature Gran # (Auto) 0.19 H Absolute Nucleated RBC 0.05 H Immature Gran % 3 H Nucleated RBC % 1 H Sodium 143 Potassium 3.5 D Chloride 111 H Carbon Dioxide 21.8 Anion Gap 10 BUN 9 Creatinine 1.0 Estim Creat Clear Calc 47.9 L eGFR > 60 BUN/Creatinine Ratio 9 L Glucose 87 Calculated Osmolality 282 Calcium 8.0 L Corrected Calcium 8.7 Magnesium 2.2 Total Bilirubin 1.0 AST 87 H ALT 49 Alkaline Phosphatase 60 Total Creatine Kinase 1132 H D Total Protein 5.5 L Albumin 3.1 L Globulin 2.4 Albumin/Globulin Ratio 1.3 Impressions Impression: Gastritis esophagitis continue current management Assessment & Plan A&P Narrative # FOBT positive # iron deficiency anemia Patient has other pressing issues at the moment I will avoid scheduling any invasive GI workup till her general medical condition improves Will follow the patient Other medical problems include Rhabdomyolysis LFTs improving most likely hypoxic hepatitis On heparin drip Thank you very much for the opportunity to participate in the care of this patient Time Spent With Patient Time: Total time spent is greater than 50% in coordination of care (as documented) at patient's floor/unit and/or counseling patient:
[2024-12-22] VITALS (7 sets, daily range): BP systolic 99–129; BP diastolic 68–95; PULSE 84–114; RESP 14–21; TEMP 36.1–37.1; O2SAT 96–99; BMI 20.7
[2024-12-22 05:45] LABS: Basophils % (Auto) 0 % (0-2.5); Eosinophils # (Auto) 0.1 Thou/mm3 (0.0-0.5); Eosinophils % (Auto) 1 % (0-10); Hematocrit 26.5 % (41.0-53.0); Hemoglobin 8.9 g/dL (13.5-16.0); Immature Granulocytes % (Auto) 6 % (0-0); Immature Granulocytes Auto 0.53 Thou/mm3 (0.00-0.00); Lymphocytes # (Auto) 1.3 Thou/mm3 (1.0-4.8); Lymphocytes % (Auto) 14 % (10-50); Mean Corpuscular HGB Conc 33.6 g/dl (31.0-37.0); Mean Corpuscular Volume 63 fL (80-100); Monocytes % (Auto) 12 % (0-12); Neutrophils % (Auto) 67 % (37-80); Nucleated Red Blood Cell # 0.09 Thou/mm3 (0.00-0.00); Nucleated Red Blood Cell % 1 /100 WBC (0); Platelet Count 179 Thou/mm3 (140-440); RDW Standard Deviation 30.5 fL (35.1-43.9); Red Blood Count 4.23 Miln/mm3 (4.50-5.90)
[2024-12-22 06:27] LABS: Alanine Aminotransferase 42 U/L (10-49); Albumin/Globulin Ratio 1.2 (1.2-2.2); Alkaline Phosphatase 61 U/L (46-116); Anion Gap 8 (7-16); Aspartate Amino Transferase 62 U/L (0-34); BUN/Creatinine Ratio 9 Ratio (12-20); Blood Urea Nitrogen 8 mg/dL (9-23); Calcium 7.5 mg/dL (8.3-10.6); Calcium (Corrected) 8.3 mg/dL (8.5-10.1); Carbon Dioxide 21.7 mMol/L (20.0-31.0); Chloride 108 mMol/L (98-107); Creatine Kinase 459 U/L (34-171); Creatinine (Component) 0.9 mg/dL (0.6-1.3); Estimated Creatinine Clearance 53.3 mL/min (>60); Globulin 2.6 gm/dL (2.3-3.5); Glucose 110 mg/dL (74-106); Osmolality,Calculated 274 (275-295); Potassium 3.3 mMol/L (3.4-5.1); Sodium 138 mMol/L (136-145); Total Protein 5.6 gm/dL (5.7-8.2); eGFR > 60 See Note
[2024-12-22] MEDS: POTASSIUM CHLORIDE 20 mEq TABCR 40 MEQ PO ×2 (08:10→10:19)
[2024-12-22] MEDS: METOPROLOL SUCCINATE XL 25 MG TABCR PO (08:10)
[2024-12-22] MEDS: TAMSULOSIN HCL 0.4 MG CAPSULE PO (08:10)
[2024-12-22] MEDS: LACTOBACILLUS RHAMNOSUS 1 CAP PO (08:11)
[2024-12-22] MEDS: VIT B12/Vit C/FA (Nephrovite) TABLET 1 TAB PO (08:11)
[2024-12-22] MEDS: APIXABAN 2.5 MG TABLET PO (08:11)
[2024-12-22 08:12] LABS: Magnesium 1.7 mg/dL (1.6-2.6)
--- NOTE | 2024-12-22 10:19 | PD.RESPRO ---
Documentation for date of: 12/22/24 Subjective Subjective Interval history: No acute overnight events reported. Seen and examined at bedside and family present, who states that patient appears to be much more alert and oriented today. Upon evaluation, patient oriented to self, birthdate, and place but does answer slowly and sounds slurred. Explained to family that this is likely to wax and wane and their presence is helpful and appreciated. Telemetry reviewed and heart rate starting to increase from 80s-90s to 90s-100s while on metoprolol XL 25 mg daily; however, BP 117/90 and unable to uptitrate at this time. K noted to be low at 3.3 and magnesium 1.7, repleted with 80 mEq and 6 g, respectively. Exam Vital Signs Temp Pulse Resp BP Pulse Ox O2 Del Method O2 Flow Rate 98.3 F 114 H 19 117/90 H 99 Room Air 3 12/22/24 08:00 12/22/24 08:10 12/22/24 08:00 12/22/24 08:10 12/22/24 08:00 12/22/24 08:00 12/19/24 19:36 Narrative Exam General: alert and orientated to self/place/birthdate, answerd questions appropriately but with slurred speech, followed commands HEENT: poor dentition, NC/AT, mucous membranes moist, bilateral sclera anicteric Cardiovascular: irregular rhythm, regular rate, S1/S2 present, no murmurs appreciated Pulmonary: mild wheezing auscultated bilaterally Abdominal: soft, non-tender, non-distended, no rebound/guarding, normal bowel sounds present Musculoskeletal: normal ROM, no peripheral edema Skin: warm and dry, intact, no rashes Objective Labs 12/22/24 04:54 12/22/24 04:54 Labs: Laboratory Results - last 24 hr 12/22/24 04:54 WBC 9.0 RBC 4.23 L Hgb 8.9 L Hct 26.5 L MCV 63 L MCH 21.0 L MCHC 33.6 RDW Std Deviation 30.5 L Plt Count 179 D Neut % (Auto) 67 Lymph % (Auto) 14 Hettinger % (Auto) 12 Eos % (Auto) 1 Baso % (Auto) 0 Neut # (Auto) 6.0 Lymph # (Auto) 1.3 Hettinger # (Auto) 1.0 H Eos # (Auto) 0.1 Baso # (Auto) 0.0 Immature Gran # (Auto) 0.53 H Absolute Nucleated RBC 0.09 H Immature Gran % 6 H Nucleated RBC % 1 H Sodium 138 Potassium 3.3 L Chloride 108 H Carbon Dioxide 21.7 Anion Gap 8 BUN 8 L Creatinine 0.9 Estim Creat Clear Calc 53.3 L eGFR > 60 BUN/Creatinine Ratio 9 L Glucose 110 H Calculated Osmolality 274 L Calcium 7.5 L Corrected Calcium 8.3 L Magnesium 1.7 Total Bilirubin 1.0 AST 62 H ALT 42 Alkaline Phosphatase 61 Total Creatine Kinase 459 H D Total Protein 5.6 L Albumin 3.0 L Globulin 2.6 Albumin/Globulin Ratio 1.2 Quality Measures Quality Measures sepsis Current suspected stage: ruled out Possible source: unknown Blood cultures ordered: yes Antibiotic ordered: No Advance care planning discussed with:: patient Assessment & Plan Assessment Current Active Medications: Generic Name Dose Route Start Last Admin Trade Name Freq PRN Reason Stop Dose Admin Acetaminophen 650 mg 12/16/24 13:06 12/16/24 14:18 Acetaminophen 325 Mg Tablet PO 01/15/25 13:05 650 mg Q6H PRN Administration Fever >100.3 Apixaban 2.5 mg 12/20/24 09:00 12/22/24 08:11 Apixaban 2.5 Mg Tablet PO 01/19/25 08:59 2.5 mg BID MIHAELA Administration Bisacodyl 10 mg 12/16/24 13:06 Bisacodyl 10 Mg Supp MD 01/15/25 13:05 QDAY PRN Constipation Protocol Diphenhydramine HCl 25 mg 12/21/24 14:51 Diphenhydramine 25 Mg Capsule PO 01/20/25 20:59 HS PRN AGITATION (MODERATE) Ferrous Sulfate 325 mg 12/21/24 15:00 12/21/24 15:34 Ferrous Sulf 325 Mg Tablet PO 01/20/25 14:59 325 mg QOD MIHAELA Administration Magnesium Sulfate 4 gm in 50 mls @ 12.5 mls/hr 12/22/24 09:57 Magnesium Sulfate Ivpb IV 12/22/24 13:56 X1 ONE Lactobacillus Rhamnosus 1 cap 12/22/24 09:00 12/22/24 08:11 Lactobacillus Rhamnosus 1 Cap PO 01/21/25 08:59 1 cap BID MIHAELA Administration Levalbuterol HCl 0.31 mg 12/20/24 15:46 12/21/24 13:39 Levalbuterol Rt 0.31 Mg/3 Ml Nebu INH 01/19/25 15:45 0.31 mg Q8HR PRN Administration WHEEZING Metoprolol Succinate 25 mg 12/18/24 09:45 12/22/24 08:10 Metoprolol Succinate Xl 25 Mg Tabcr PO 01/17/25 09:44 25 mg QDAY MIHAELA Administration Prochlorperazine Maleate 10 mg 12/16/24 13:06 Prochlorperazine Maleate 5 Mg Tablet PO 01/15/25 13:05 Q6H PRN NAUSEA OR VOMITING Tamsulosin HCl 0.4 mg 12/17/24 15:15 12/22/24 08:10 Tamsulosin Hcl 0.4 Mg Capsule PO 01/16/25 15:14 0.4 mg QDAY MIHAELA Administration Vitamin B Complex/Vit C/Folic Acid 1 tab 12/21/24 09:00 12/22/24 08:11 Vit B12/Vit C/Fa (Nephrovite) Tablet PO 01/20/25 08:59 1 tab QDAY MIHAELA Administration Plan Macy Chen is an 79-y/o male with no significant PMHx except for possible CVA with no residual deficits was brought to ED for further evaluation of generalized weakness and fever. Apparently has been doing well until night before admission and overnight went to bathroom and fell down after twisting his ankle. Denies LOC/syncope. Found on bed with involuntary defecation and urination, which has not happened before. Since morning he?s had severe lower body pains, diarrhea and questionable subjective fever and so was brought to ED. Denies chest discomfort, SOB, orthopnea, PND, palpitations, leg swelling, or N/V, fever or chills. Endorses right flank pain as per the niece who is at the bedside. At baseline, he does not need a walker and is ADL independent but IADL dependent. Lives with daughter, son-in-law, and niece helps him from time to time. Cardiology was consulted for further evaluation of new onset a-fib. #A-fib with RVR, persistent versus paroxysmal, rate controlled EKG showed afib with 94 bpm, poor quality due to artifact. Had a-fib on telemonitor with rate going up into 130s at times, likely secondary to underlying sepsis. Denying CP, palpitations, SOB, or dizziness. No known cardiac disease but questionable history of previous stroke, though no official diagnosis and not on any medications. TTE 12/16: Normal LV size and function, EF 55 to 60%, diastolic dysfunction present but cannot be graded due to A-fib. RVSP 42 mmHg, moderate TR, normal RV size and function. Moderate LA dilatation, mild RA dilatation. Mild to moderate MR, mild MAC, mild AV sclerosis without stenosis, mild to moderate TR. Recommend anticoagulation due [id number] score of 2-4 ? Continue metoprolol 25 mg PO daily so long as heart rate remains < 110 bpm, if HR increases consider uptitrating as BP permits ? Eliquis 2.5 mg p.o. twice daily given age and weight ? Aggressively replace potassium to keep it greater than 4 and magnesium greater than 2.0 at all times #Sepsis with unclear source #Acute kidney injury versus acute on chronic kidney disease stage III #Rhabdomyolysis #Transaminitis #Fall #Chronic normocytic anemia ? Management above medical conditions as per primary team and other consultants ----- Plan discussed with attending physician Dr. Gibson Torres MD PGY-1 Internal Medicine Attending Provider Attestation/Addendum I have personally seen and examined the patient separately on the above date of service and discussed the plan of care with the resident. I reviewed the resident Dr. Memo Torres consultation progress note and agree with the resident findings and plan in the note above and have also edited the documentation to reflect my findings and plan. Bon Arreaga M.D. Interventional Cardiology
[2024-12-22] MEDS: Magnesium Sulfate 4 GM Ivpb 4 GM/50 ML BAG IV (10:21)
--- NOTE | 2024-12-22 10:22 | XR_ITS ---
Examination: Abdomen AP single view Technique: AP portable supine abdomen, single view Exam date and time: December 22, 2024 1033 hrs. Indications: Abdominal pain and distention beginning today. Findings: Moderate colonic and small bowel ileus No free air. No definite obstruction Prominent osteopenia Impression: Moderate colonic and small bowel ileus
[2024-12-22] MEDS: LEVALBUTEROL RT 0.31 MG/3 ML NEBU INH (10:31)
--- NOTE | 2024-12-22 10:49 | PC.SS ---
Update: Patient receiving abdominal X-Ray. Reading pending.
[2024-12-22 12:56] LABS: Uric Acid 5.5 mg/dL (3.7-9.2)
[2024-12-22] MEDS: Magnesium Sulfate 2 GM Ivpb 2 GM/50 ML BAG IV (13:30)
--- NOTE | 2024-12-22 13:44 | PC.SS ---
MANAGER TRANSMISSION initiated transport with [facility]. Reference number is [id number]. [facility] transport preferred provider. Documentation submitted on [facility] awaiting authorization.
--- NOTE | 2024-12-22 14:42 | PD.RESDS ---
Planned Discharge Date 12/22/24 DS: Providers Provider Date of admission: 12/16/24 13:27 Primary care physician: Physician No Primary/Family Admitting Provider: Bimal Merino MD Attending Provider on Admission: Anish Ochoa MD Consults: 12/16/24 13:17 Consult to Cardiology Routine Comment: afib new onset Consulting Provider: Bon Arreaga 12/16/24 22:20 [facility] Referral - Knowledge Deficit Routine Comment: Positive screening for knowledge deficit needs. 12/18/24 07:54 Consult to Gastroenterology Routine Comment: Occult blood positive Consulting Provider: Milagros Valentin 12/20/24 09:54 Referral Physical Therapy Routine Comment: Physician Instructions: Attending Provider on DC: Stone Diaz MD Discharging Provider: Stone Diaz MD DS: Diagnosis Problem List Completed Was Problem List Reviewed/Reconciled?: Yes Hospital Course Hospital Course Hospital course: A 79-year-old ilocano speaking patient with past medical history of CVA, but not on any medication was brought to the hospital by his niece with chief complaints of generalized weakness and admitted in the hospital for CHRISTOPHER secondary to rhabdomyolysis, atrial fibrillation with rapid ventricular rate. Initial labs showed WBC 4.8, Hb 10.8, platelets 125, sodium 130, potassium 3.7, chloride 100, bicarb 20.7, BUN 25, creatinine 1.6, creatine kinase 04650. Urinalysis showed 1+ proteinuria, 2+ blood with no RBC in the urine. Chest x-ray did not show any infiltrates. Echo showed EF of 55 to 60% with mild to moderate TR. Head CT is negative for acute hemorrhage, mass effect or midline shift. Patient was treated with IV fluids, heparin drip initially and changed to Eliquis, metoprolol, iron infusions were done. Patient's renal functions improved with creatinine 0.9, total CK levels 459. Fish Boning Machine Feeder Dr. Arreaga was consulted in view of new onset A-fib with RVR and appreciated his recommendations. Patient was found to have a microcytic hypochromic iron deficiency anemia with positive stool occult blood for which tool and die machinist Dr. Valentin was consulted and patient underwent upper GI endoscopy which did not show any significant pathology and patient was recommended to follow-up on outpatient basis for colonoscopy. Patient is discharged to SNF with following medications and recommendations -Follow-up with PCP within 1 week of discharge. If you do not have appointment, [facility] Diaz. Call [phone] to make an appointment. -Follow up with Dr. Valentin within 1 week of discharge for colonoscopy -Start Eliquis 2.5 Mg p.o. twice daily, iron p.o. daily, metoprolol succinate 25 Mg p.o. daily, Nephro-Suzie 0.8 Mg p.o. daily, tamsulosin 0.4 Mg p.o. daily. -Recommended to use albuterol rescue inhaler -Return to ED if symptoms persist or return -Take 10meq of potassium daily for 1 week. # Delirium, likely hospital induced, resolved #Fever, resolved #likely 2/2 Rhabdomyolysis vs Gastroenteritis #Afib - New onset vs paroxysmal vs persistent #CHRISTOPHER 2/2Rhabdomyolysis, resolved # Hypokalemia, resolved # Non-anion gap metabolic acidosis, resolved # Transaminitis, resolved #Lactic acidosis, resolved #Microcytic Hypochromic anemia #Hyponatremia, resolved Patient plan of care was discussed with the attending physician, Dr. Ochoa and senior resident Dr. Harry Diaz, PGY1 Time Spent with Patient Time attestation: Total time spent providing and/or coordinating discharge services: Time spent: Less than 30 minutes Exam Vital Signs Temp Pulse Resp BP Pulse Ox O2 Del Method O2 Flow Rate 98.7 F 84 14 99/75 98 Room Air 3 12/22/24 12:00 12/22/24 12:12/22/24 12:12/22/24 12:12/22/24 12:12/22/24 12:12/19/24 19:36 Narrative Exam General: Awake. HEENT: Normocephalic, atraumatic, mucous membranes moist. Heart: Irregular rate and rhythm, pansystolic murmur heard at tricuspid area Lungs: Clear to auscultation with no wheezing or crackles. Abdomen: Soft, nondistended, nontender, positive bowel sounds. ?No guarding or rebound tenderness. Neurologic: no gross neurological deficit, and patient able to move all 4 extremities. Extremities: No edema. Skin: No rash or ecchymoses. Discharge Plan Plan Patient Disposition: Xfer Skilled Nsg Fac (SNF) Patient condition on transfer: Stable Care Plan Goals: -Follow-up with PCP within 1 week of discharge. If you do not have appointment, please [facility] Diaz. Call [phone] to make an appointment. -Follow up with Dr. Valentin within 1 week of discharge for colonoscopy -Start Eliquis 2.5 Mg p.o. twice daily, iron p.o. daily, metoprolol succinate 25 Mg p.o. daily, Nephro-Suzie 0.8 Mg p.o. daily, tamsulosin 0.4 Mg p.o. daily. -Recommended to use albuterol rescue inhaler -Return to ED if symptoms persist or return -Take 10meq of potassium daily for 1 week. Prescriptions/Referrals Prescriptions/Med Rec: New ferrous sulfate 325 mg (65 mg iron) Tablet,Delayed Release (Dr/Ec) 325 mg PO QOD Qty: 60 1RF Eliquis 2.5 mg Tablet 2.5 mg PO BID Qty: 30 3RF Culturelle 10 billion cell Capsule 1 cap PO BID Qty: 14 0RF tamsulosin 0.4 mg Capsule 0.4 mg PO QDAY Qty: 30 3RF Nephro-Suzie 0.8 mg Tablet 1 tab PO QDAY Qty: 30 2RF metoprolol succinate 25 mg Tablet Extended Release 24 Hr 25 mg PO QDAY Qty: 30 3RF albuterol sulfate 90 mcg/actuation HFA aerosol inhaler 1 inh inhalation QID PRN (Reason: shortness of breath or wheezing) Qty: 8.5 0RF potassium chloride 10 mEq capsule, extended release 10 meq PO QDAY Qty: 7 0RF Referrals: No Primary/Family,Physician [Primary Care Provider] - Patient/Caregiver Discharge Instructions Discharge Activity: as per physical therapy Education Materials: AFL/Afib, Understanding Atrial Fibrillation Print Language: Andorran Stand Alone Forms: Liv Award Info., Patient Portal Info Letter Discharge Order Discharge Orders: Discharge (Routine); Ordered 12/22/24 Ordered By: Stone Diaz Quality Discharge Quality Measures VTE prophylaxis Attestestation MD Attestation I attest that I was physically present for the evaluation, physical examination, lab and imaging review of the patient with the residents. I discussed the case with the residents and agree with the findings and plans of care as documented above. Anish Ochoa MD
--- NOTE | 2024-12-22 14:51 | PC.SS ---
Rounding Note: Plan is to d/c patient to SNF today.
--- NOTE | 2024-12-22 15:45 | PC.SS ---
COLLAR POINTER contacted [facility] transport to obtain update on transport request. Per [facility] staff transport assignment remains pending. COLLAR POINTER confirmed preferred vendor is [facility].
--- NOTE | 2024-12-22 16:56 | PC.SS ---
Ambulance transport scheduled for 06:00 pm. SURFACE WATER MANAGER notified bedside nurse, patient's family and SNF.
--- NOTE | 2024-12-22 17:20 | PC.NURSE ---
Report given to JOSIE Ayala at [facility] via telephone.
== END 2024-12-22 17:58 | disposition skilled nursing facility (03) | DRG 249 ==
LOC: SERX 12:21 → SERHOLD 13:29 → S2NX 20:25
PROVIDERS: Specialist; Student in an Organized Health Care Education/Training Program; Admitting Provider Internal Medicine; Emergency Provider Emergency Medicine; Visit Provider Student in an Organized Health Care Education/Training Program
PROC: (CPT 43239; principal; 2024-12-19 15:45)
DX: K52.9 Noninfective gastroenteritis and colitis, unspecified (principal); D50.9 Iron deficiency anemia, unspecified; N17.9 Acute kidney failure, unspecified; N18.31 Chronic kidney disease, stage 3a; E87.20 Acidosis, unspecified; E87.1 Hypo-osmolality and hyponatremia; M62.82 Rhabdomyolysis; R74.01 Elevation of levels of liver transaminase levels; D50.0 Iron deficiency anemia secondary to blood loss (chronic); R19.5 Other fecal abnormalities; E87.6 Hypokalemia; K20.90 Esophagitis, unspecified without bleeding; K29.70 Gastritis, unspecified, without bleeding; Z86.73 Personal history of transient ischemic attack (TIA), and cerebral infarction without residual deficits; D69.6 Thrombocytopenia, unspecified; I48.0 Paroxysmal atrial fibrillation; I95.9 Hypotension, unspecified; R47.81 Slurred speech; G93.40 Encephalopathy, unspecified; R09.02 Hypoxemia; S99.919A Unspecified injury of unspecified ankle, initial encounter; W18.30XA Fall on same level, unspecified, initial encounter; X50.1XXA Overexertion from prolonged static or awkward postures, initial encounter; Z78.1 Physical restraint status; Z79.01 Long term (current) use of anticoagulants
CPT/HCPCS: 36415; 70450; 71045; 74018; 76700; 80048; 80053; 80061; 80076; 81001; 82270; 82306; 82436; 82550; 83036; 83540; 83550; 83605; 83735; 83880; 83993; 84100; 84133; 84145; 84300; 84443; 84550; 85025; 85610; 85730; 87015; 87040; 87045; 87046; 87205; 87329; 87400; 87449; 87493; 87811; 87899; 93005; 93306; 94640; 94664; 96361; 96365; 96367; 97162; 99291; J0696; J1644; J2250; J2543; J2916; J3010; J3475; J3490; J7030; J7040; J7050; J7120; A9270; J1836

== ENCOUNTER 2025-02-02 09:44 | Outpatient (AMB) | payer MEDICAID, SELFPAY ==
[2025-02-02 09:56] VITALS: BP 108/66; PULSE 83; RESP 18; TEMP 36.8; O2SAT 98; BMI 19.8
--- NOTE | 2025-02-02 09:56 | PD.GSCLVISIT ---
Vital Signs - [facility] 02/02/25 09:56 Height 1.65 m Height Method Stated Weight 53.977 kg Weight Measurement Method Stated by Patient BMI 19.8 BP 108/66 Blood Pressure Source Automatic Cuff Blood Pressure Location Right Upper Arm Position Sitting Respiration 18 Pulse 83 Pulse Source Monitor Temp 98.2 F Temp Source Temporal Artery Scan Pulse Oximetry (%) 98 Oxygen Delivery Method Room Air Med/Allergies Allergies & Medications Allergies No Known Allergies Allergy (Verified 02/02/25 09:57) Medication Reconciliation Lactobacillus rhamnosus GG 10 billion cell capsule (Culturelle) 1 cap PO BID #14 caps 12/22/24 [Rx Confirmed 02/02/25] albuterol sulfate 90 mcg/actuation aerosol inhaler 1 inh inhalation QID PRN shortness of breath or wheezing #8.5 grams 12/22/24 [Rx Confirmed 02/02/25] apixaban 2.5 mg tablet (Eliquis) 2.5 mg PO BID #30 tabs 12/22/24 [Rx Confirmed 02/02/25] ferrous sulfate 325 mg (65 mg iron) tablet,delayed release 325 mg PO QOD #60 tabs 12/22/24 [Rx Confirmed 02/02/25] metoprolol succinate 25 mg tablet,extended release 24 hr 25 mg PO QDAY #30 tabs 12/22/24 [Rx Confirmed 02/02/25] potassium chloride 10 mEq capsule,extended release 10 meq PO QDAY #7 caps 12/22/24 [Rx Confirmed 02/02/25] tamsulosin 0.4 mg capsule 0.4 mg PO QDAY #30 caps 12/22/24 [Rx Confirmed 02/02/25] vitamin B complex-vitamin C-folic acid 0.8 mg tablet (Nephro-Suzie) 1 tab PO QDAY #30 tabs 12/22/24 [Rx Confirmed 02/02/25] MA Intake Visit Data Collection New Patient or Established: Established Patient (seen at [facility] within 3 years) Seen by Clinical Staff ONLY (RN/MA): No Reason for Visit:: FOLLOW UP Pain scale:: 0 Certified Orthotist Required: No PCP or OBGYN visit in last 3 months: Yes Hx Now: No Do You Feel Safe at Home: Yes Authorities Contacted: N/A Smoking Status Smoking Status: Never smoker Immunization / Flu Flu Vaccine in the Last 12 Months: Yes Flu Vaccine Exclusion Criteria: Already Received Past Medical History Past Medical History NEUROLOGIC: Negative Seizures CARDIAC: Negative Congestive Heart Failure RESPIRATORY: Negative Chronic Obstructive Pulmonary Disease (COPD) GENITOURINARY: Negative Renal Disease MUSCULOSKELETAL: Positive Arthritis ENDOCRINE: Negative Diabetes Mellitus Type 1 or Diabetes Mellitus Type 2 Social History SMOKING STATUS: Smoking status: Never smoker SUBSTANCE USE: Substance use type: does not use ALCOHOL: Alcohol Intake: Former HOUSING: Housing: House LIVES WITH: Lives With: Family Travel Risk Travel Hx Recent Travel: No HPI HPI Narrative Spoke to pt with phone targeteer 79M with CVA, atrial fibrillation on eliquis referred for colonoscopy. Pt was admitted to [facility] 12/2024 with weakness, found to have anemia and stool positive for occult blood. He underwent EGD during hospitalization but colonoscopy was deferred on an outpatient basis. Pt states he has never had a colonoscopy, denies any concerns regarding his bowel movements and states he feels well overall PMH: Afib, CVA PSHx: Denies Meds: Eliquis, albuterol, ferrous sulfate, metoprolol, flomax Allergies: NKDA Family hx: No known CRC ROS Review of Systems Systems Reviewed: All systems reviewed, normal except as documented Objective/Exam General General Appearance: alert, cooperative and well groomed Resp Respiratory exam: Absent respiratory distress Abdominal Abdominal exam: Present soft Assessment & Plan Diagnosis / Problem List (1) Occult blood in stools: Status: Acute Assessment & Plan: 79M with history of CVA, afib on eliquis referred for diagnostic colonoscopy due to anemia and stool positive for occult blood. I explained benefits/risks of colonoscopy including bleeding, the possibility of needing to abort prematurely for safety, perforation requiring emergency surgery, as well as the possibility that there will be a finding that requires surgical intervention. Pt is unsure if he would want to pursue any necessary surgical intervention but would like to have diagnostic colonoscopy, will schedule for next available date Plan: Hold eliquis for 48h pre procedure Advanced Care Planning Advance care planning discussed with:: patient Office Procedures GNS Level of Care Nursing/Assessment Patient Status: Established Patient Nursing Assessment/Reassesment: Medication Reconciliation, Update PMH in EMR and Vital Signs Coordination of Care: Complex Care and Chronic Disease 1-5, Education Complex Pt/Fam, Consent,records obtained, informed consent, Results/Orders obtained and Staff clarify orders Established Patient Charge Established Patient Point Assignment: 95 Established Patient Point Charge: Level 3 (91-115) Patient Portal Questionaires Social History Living Situation History Housing: House Tobacco History Smoking Status: Never smoker Alcohol History Alcohol Intake: Former Domestic Abuse History Do You Feel Safe at Home: Yes Review of Systems Report any current symptoms Only answer those that you have currently: Past Medical History Past Medical History Have you ever been diagnosed with any of the following: Neurological Problems Seizures: No Cardiology Problems Congestive Heart Failure: No Respiratory Problems Chronic Obstructive Pulmonary Disease (COPD): No Genital/Urinary Problems Renal Disease: No Musculoskeletal Problems Arthritis: Yes Endocrine Problems Diabetes Mellitus Type 1: No Diabetes Mellitus Type 2: No
== END 2025-02-02 10:54 | disposition home or self-care (01) ==
LOC: HODSRG 09:44
PROVIDERS: Supervising Provider Surgery; Visit Provider Surgery
DX: R19.5 Other fecal abnormalities (principal); D64.9 Anemia, unspecified
CPT/HCPCS: 99213; G0463